=== PATIENT | female | born 1965 | race Caucasian/White ===

== ENCOUNTER → 2017-01-05 | Outpatient (REF) | payer OTHER ==
[~2017-01-05] MED LIST: ALLE12TA31 PO; COUM2.5T11 PO; GABA300C3 PO; GLUCTAB6 PO; NEXI40CA PO; OXYC-299 PO; PERC5TAB6 PO; PRIN10TA PO; TYLE325T5 PO; vicodin OR
== END ==
LOC: M LAB REF 14:57
PROVIDERS: ATTEND Nurse Practitioner Family
DX: J06.9 Acute upper respiratory infection, unspecified (principal); R50.9 Fever, unspecified

== ENCOUNTER → 2017-07-08 | Outpatient (CLI) | payer OTHER ==
[~2017-07-08] MED LIST changes: -COUM2.5T11 PO; +COUM2.5T17 PO; +GABA-282 PO; -GABA300C3 PO; +OXYC-141 PO; -OXYC-299 PO; +PERC5TAB12 PO; -PERC5TAB6 PO
--- NOTE | 2017-07-08 11:43 | REPMRS ---
Patient History The patient states she has not had a clinical breast exam in over a year. Patient is postmenopausal. Family history of colorectal cancer in sister at age 63. Digital Woman Screen Mammo: July 08, 2017 - Exam #: [id number] Bilateral CC and MLO view(s) were taken. Technologist: Noelle Acevedo, Technologist Prior study comparison: June 11, 2016, digital woman screen mammo performed at [facility]. May 23, 2015, digital woman screen mammo performed at [facility]. FINDINGS: There are scattered fibroglandular densities. There has been no change in the appearance of the mammogram from the prior studies. There is a mild amount of residual fibroglandular tissue which is fairly symmetric. There is no interval development of dominant mass, architectural distortion, or clustered microcalcification suggestive of malignancy. ASSESSMENT: BI-RADS/ACR category 1 mammogram. Negative. Recommendation Routine screening mammogram in 1 year (for women over age 40). This mammogram was interpreted with the aid of an FDA-approved computer-aided dectection system. Electronically Signed By: Josiah Malloy MD 07/08/17 2575
== END ==
LOC: M WHC 10:51
PROVIDERS: ATTEND Family Medicine
DX: Z12.31 Encounter for screening mammogram for malignant neoplasm of breast (principal); Z78.0 Asymptomatic menopausal state; Z80.0 Family history of malignant neoplasm of digestive organs

== ENCOUNTER → 2017-08-11 | Outpatient (REF) | payer OTHER | LOC: M LAB REF 14:48 | PROVIDERS: ATTEND Advanced Practice Midwife | DX: Z12.4 Encounter for screening for malignant neoplasm of cervix (principal) ==

== ENCOUNTER → 2018-02-03 | Outpatient (CLI) | payer OTHER | LOC: M RAD 14:50 | DX: N95.0 Postmenopausal bleeding (principal); N85.00 Endometrial hyperplasia, unspecified | CPT/HCPCS: 76856 ==

== ENCOUNTER → 2018-05-12 | Outpatient (CLI) | payer OTHER ==
[2018-05-12 11:38] LABS: BASO % 0.5 % (0.0-1.0); EOS # 0.1 10^3/uL (0.0-0.50); EOS % 1.6 % (0.0-3.0); HEMATOCRIT 44.8 % (36.0-47.0); HEMOGLOBIN 15.1 g/dl (12.0-15.5); IMMATURE GRANULOCYTE % 0.2 % (0-3.0); LYMPH # 2.1 10^3/uL (1.5-4.5); LYMPH % 34.6 % (24.0-44.0); MEAN CORPUSCULAR HEMOGLOBIN 30.1 pg (27.0-33.0); MEAN CORPUSCULAR HGB CONC 33.7 g/dl (32.0-36.5); MEAN CORPUSCULAR VOLUME 89.2 fl (80.0-96.0); MONO # 0.5 10^3/uL (0.0-0.8); MONO % 8.4 % (0.0-5.0); NEUTROPHILS # 3.4 10^3/uL (1.8-7.7); NEUTROPHILS % 54.7 % (36.0-66.0); PLATELET COUNT, AUTOMATED 220 10^3/uL (150-450); RED BLOOD COUNT 5.02 10^6/uL (4.00-5.40); RED CELL DISTRIBUTION WIDTH 13.3 % (11.5-14.5); WHITE BLOOD COUNT 6.2 10^3/uL (4.0-10.0)
[2018-05-12 12:05] LABS: ALBUMIN/GLOBULIN RATIO 1.21 (1.00-1.93); ALKALINE PHOSPHATASE 36 U/L (45-117); ALT/SGPT 27 U/L (12-78); ANION GAP 6 MEQ/L (8-16); AST/SGOT 17 U/L (7-37); BILIRUBIN,TOTAL 0.5 MG/DL (0.2-1.0); BLOOD UREA NITROGEN 12 MG/DL (7-18); CALCIUM LEVEL 8.8 MG/DL (8.5-10.1); CARBON DIOXIDE LEVEL 29 MEQ/L (21-32); CHLORIDE LEVEL 106 MEQ/L (98-107); CREATININE FOR GFR 0.81 MG/DL (0.55-1.30); GLOMERULAR FILTRATION RATE > 60.0 (>51); GLUCOSE, FASTING 90 MG/DL (70-100); POTASSIUM SERUM 4.5 MEQ/L (3.5-5.1); SODIUM LEVEL 141 MEQ/L (136-145); TOTAL PROTEIN 7.3 GM/DL (6.4-8.2)
== END ==
LOC: M LAB 10:40
DX: Z01.818 Encounter for other preprocedural examination (principal); N92.0 Excessive and frequent menstruation with regular cycle
CPT/HCPCS: 80053

== ENCOUNTER 2018-05-24 07:56 | Day surgery (SDC) | payer OTHER ==
[~2018-05-24 07:56] MED LIST changes: -ALLE12TA31 PO; -COUM2.5T17 PO; -GABA-282 PO; -GLUCTAB6 PO; +KETOROLAC 60 MG/2 ML VIAL (J1885) As Ordered; +LIDOCAINE 2% INJ 100 MG/5 ML SDV (FOR ANES.) As Ordered; -NEXI40CA PO; +ONDANSETRON 4MG/2ML VIAL (J2405) As Ordered; -OXYC-141 PO; -PERC5TAB12 PO; -PRIN10TA PO; +PROPOFOL 200 MG/20 ML VIAL As Ordered; +ROCURONIUM BROMIDE 50 MG/5 ML VIAL As Ordered; -TYLE325T5 PO; +dexameTHASONE 4 MG/ML 1ML VIAL (J1100) As Ordered; -vicodin OR
[2018-05-24] MEDS: LR 1,000 ML IV ×4 (08:15→23:00)
[2018-05-24] MEDS ORDERED: fentaNYL 250 MCG/5 ML INJECTION (J3010) As Ordered (09:41)
[2018-05-24] MEDS ORDERED: MIDAZOLAM INJ 2 MG/2 ML VIAL (J2250) As Ordered (09:41)
[2018-05-24] MEDS ORDERED: BUPIVACAINE HCL 0.25% 30 ML VIAL As Ordered (10:31)
[2018-05-24] MEDS ORDERED: HYDROmorphone HCL 2 MG/ML 1ML VIAL (J1170) As Ordered (11:17)
[2018-05-24] MEDS ORDERED: GLYCOPYRROLATE INJ 0.2 MG/ML 2 ML VIAL As Ordered (11:35)
[2018-05-24] MEDS ORDERED: ROCURONIUM BROMIDE 50 MG/5 ML VIAL As Ordered (11:42)
[2018-05-24] MEDS ORDERED: hydrALAZINE INJ 20 MG/ML VIAL As Ordered (12:11)
[2018-05-24] MEDS ORDERED: SUGAMMADEX SODIUM 500 MG/5 ML VIAL (BRIDION) As Ordered (13:39)
[2018-05-24] MEDS ORDERED: LABETALOL HCL 100 MG/20 ML VIAL As Ordered (14:04)
[2018-05-24] MEDS ORDERED: HYDROMORPHONE HCL 0.5 MG/ 0.5 ML SYRINGE (J1170 PER 1) As Ordered (14:41)
[2018-05-24] MEDS ORDERED: ONDANSETRON 4MG/2ML VIAL (J2405) IV (14:45)
[2018-05-24] MEDS ORDERED: fentaNYL 100 MCG/2 ML INJECTION (J3010) IV (14:45)
[2018-05-24] MEDS: HYDROMORPHONE HCL 0.5 MG/ 0.5 ML SYRINGE (J1170 PER 1) IV ×5 (14:47→15:10)
[2018-05-24] MEDS ORDERED: LABETALOL HCL 100 MG/20 ML VIAL IV (15:00)
[2018-05-24] MEDS ORDERED: PROMETHAZINE INJ 25 MG/ML VIAL (J2550) IV (15:00)
[2018-05-24] MEDS ORDERED: PERCOCET 5MG/325MG TAB PO ×2 (15:00)
[2018-05-24] MEDS ORDERED: MORPHINE 4 MG/ML 1ML VIAL/SYRINGE (J2270) IV (15:00)
[2018-05-24] MEDS ORDERED: KETOROLAC 30 MG/ML VIAL (J1885) IV (15:00)
[2018-05-24] MEDS ORDERED: zolPIDEM TARTRATE 10MG TAB PO (15:00)
[2018-05-24] MEDS: PERCOCET 5MG/325MG TAB PO (15:25)
[2018-05-24] MEDS: KETOROLAC 30 MG/ML VIAL (J1885) IV (17:56)
[2018-05-25] MEDS: KETOROLAC 30 MG/ML VIAL (J1885) IV ×2 (00:09→06:26)
[2018-05-25] MEDS: LR 1,000 ML IV (06:19)
== END 2018-05-25 10:42 | disposition home or self-care (01) ==
LOC: M SDC 07:56 → M PED 16:15
DX: N95.0 Postmenopausal bleeding (principal); N84.0 Polyp of corpus uteri; D25.1 Intramural leiomyoma of uterus; N73.6 Female pelvic peritoneal adhesions (postinfective); R10.2 Pelvic and perineal pain; I10 Essential (primary) hypertension; Z91.040 Latex allergy status; F41.9 Anxiety disorder, unspecified; F32.9 Major depressive disorder, single episode, unspecified; J45.20 Mild intermittent asthma, uncomplicated; M54.5 Low back pain; K21.9 Gastro-esophageal reflux disease without esophagitis; G47.33 Obstructive sleep apnea (adult) (pediatric); Z79.899 Other long term (current) drug therapy
CPT/HCPCS: 58571

== ENCOUNTER 2018-05-29 11:41 | Emergency (ER) | payer OTHER ==
[2018-05-29 13:42] LABS: HEMATOCRIT 46.2 % (36.0-47.0); HEMOGLOBIN 15.5 g/dl (12.0-15.5); MEAN CORPUSCULAR HEMOGLOBIN 30.3 pg (27.0-33.0); MEAN CORPUSCULAR HGB CONC 33.5 g/dl (32.0-36.5); MEAN CORPUSCULAR VOLUME 90.2 fl (80.0-96.0); PLATELET COUNT, AUTOMATED 246 10^3/uL (150-450); RED BLOOD COUNT 5.12 10^6/uL (4.00-5.40); WHITE BLOOD COUNT 8.6 10^3/uL (4.0-10.0)
[2018-05-29 14:01] LABS: ANION GAP 6 MEQ/L (8-16); BLOOD UREA NITROGEN 13 MG/DL (7-18); CALCIUM LEVEL 9.3 MG/DL (8.5-10.1); CARBON DIOXIDE LEVEL 30 MEQ/L (21-32); CHLORIDE LEVEL 105 MEQ/L (98-107); CREATININE FOR GFR 0.82 MG/DL (0.55-1.30); GLOMERULAR FILTRATION RATE > 60.0 (>51); GLUCOSE, FASTING 96 MG/DL (70-100); MAGNESIUM LEVEL 2.1 MG/DL (1.8-2.4); POTASSIUM SERUM 4.4 MEQ/L (3.5-5.1); SODIUM LEVEL 141 MEQ/L (136-145)
== END 2018-05-29 15:07 | disposition home or self-care (01) ==
LOC: M ED 11:41
DX: M79.661 Pain in right lower leg (principal); Z98.890 Other specified postprocedural states; I10 Essential (primary) hypertension; G43.909 Migraine, unspecified, not intractable, without status migrainosus; K21.9 Gastro-esophageal reflux disease without esophagitis; M54.9 Dorsalgia, unspecified; F41.9 Anxiety disorder, unspecified; F32.9 Major depressive disorder, single episode, unspecified; Z87.442 Personal history of urinary calculi; Z88.6 Allergy status to analgesic agent; Z88.8 Allergy status to other drugs, medicaments and biological substances; Z88.1 Allergy status to other antibiotic agents; Z91.040 Latex allergy status
CPT/HCPCS: 93971

== ENCOUNTER → 2018-05-31 | Outpatient (CLI) | payer OTHER | LOC: M RAD 10:56 | DX: M79.661 Pain in right lower leg (principal) | CPT/HCPCS: 93971 ==

== ENCOUNTER → 2018-06-10 | Outpatient (CLI) | payer OTHER ==
[2018-06-10 11:20] LABS: HEMATOCRIT 45.5 % (36.0-47.0); HEMOGLOBIN 15.3 g/dl (12.0-15.5); MEAN CORPUSCULAR HEMOGLOBIN 30.2 pg (27.0-33.0); MEAN CORPUSCULAR HGB CONC 33.6 g/dl (32.0-36.5); MEAN CORPUSCULAR VOLUME 89.7 fl (80.0-96.0); PLATELET COUNT, AUTOMATED 263 10^3/uL (150-450); RED BLOOD COUNT 5.07 10^6/uL (4.00-5.40); RED CELL DISTRIBUTION WIDTH 12.9 % (11.5-14.5); WHITE BLOOD COUNT 6.8 10^3/uL (4.0-10.0)
[2018-06-10 11:27] LABS: INR 1.04; PROTHROMBIN TIME 13.7 SECONDS (12.1-14.4)
[2018-06-10 11:41] LABS: ERYTHROCYTE SEDIMENTATION RATE 11 mm/hr (0-30)
[2018-06-10 11:44] LABS: ALBUMIN 3.9 GM/DL (3.2-5.2); ALBUMIN/GLOBULIN RATIO 1.03 (1.00-1.93); ALKALINE PHOSPHATASE 36 U/L (45-117); ALT/SGPT 27 U/L (12-78); ANION GAP 9 MEQ/L (8-16); AST/SGOT 12 U/L (7-37); BILIRUBIN,TOTAL 0.4 MG/DL (0.2-1.0); BLOOD UREA NITROGEN 18 MG/DL (7-18); CALCIUM LEVEL 9.2 MG/DL (8.5-10.1); CARBON DIOXIDE LEVEL 26 MEQ/L (21-32); CHLORIDE LEVEL 105 MEQ/L (98-107); CREATININE FOR GFR 0.88 MG/DL (0.55-1.30); GLOMERULAR FILTRATION RATE > 60.0 (>51); GLUCOSE, FASTING 95 MG/DL (70-100); POTASSIUM SERUM 4.4 MEQ/L (3.5-5.1); SODIUM LEVEL 140 MEQ/L (136-145); TOTAL PROTEIN 7.7 GM/DL (6.4-8.2)
== END ==
LOC: M LAB 10:42
DX: Z01.818 Encounter for other preprocedural examination (principal); I10 Essential (primary) hypertension; M17.12 Unilateral primary osteoarthritis, left knee
CPT/HCPCS: 71046

== ENCOUNTER → 2018-07-09 | Outpatient (CLI) | payer OTHER | LOC: M WHC 11:17 | DX: Z12.31 Encounter for screening mammogram for malignant neoplasm of breast (principal) | CPT/HCPCS: 77067 ==

== ENCOUNTER 2018-07-13 07:18 | Inpatient (IN) | payer OTHER ==
[2018-07-13] MEDS: LR 1,000 ML IV ×3 (08:04→16:25)
[2018-07-13] MEDS: ACETAMINOPHEN 500 MG TAB PO (08:05)
[2018-07-13] MEDS ORDERED: fentaNYL 100 MCG/2 ML INJECTION (J3010) As Ordered ×3 (08:28→10:01)
[2018-07-13] MEDS ORDERED: MIDAZOLAM INJ 2 MG/2 ML VIAL (J2250) As Ordered ×2 (08:28→09:00)
[2018-07-13] MEDS: VANCOMYCIN HCL 1,000 MG, VIAL MATE ADAPTER 1 EACH in D5W 250 ML IV ×2 (08:37→21:00)
[2018-07-13] MEDS: fentaNYL 100 MCG/2 ML INJECTION (J3010) IV ×6 (08:39→12:15)
[2018-07-13] MEDS: MIDAZOLAM INJ 2 MG/2 ML VIAL (J2250) IV ×2 (08:39→08:40)
[2018-07-13] MEDS ORDERED: dexameTHASONE 4 MG/ML 1ML VIAL (J1100) As Ordered (09:02)
[2018-07-13] MEDS ORDERED: ONDANSETRON 4MG/2ML VIAL (J2405) As Ordered ×2 (09:02→11:43)
[2018-07-13] MEDS ORDERED: LIDOCAINE 2% INJ 100 MG/5 ML SDV (FOR ANES.) As Ordered (09:02)
[2018-07-13] MEDS ORDERED: PROPOFOL 200 MG/20 ML VIAL As Ordered (09:02)
[2018-07-13] MEDS ORDERED: HYDROmorphone HCL 2 MG/ML 1ML VIAL (J1170) As Ordered (10:11)
[2018-07-13] MEDS: ceFAZolin 1GM INJ (J0690 PER 500MG) As Ordered (10:18)
[2018-07-13] MEDS ORDERED: ATROPINE SULF 0.4 MG/ML 1ML VIAL (J0461) As Ordered (10:19)
[2018-07-13] MEDS ORDERED: KETAMINE HCL 200 MG/20 ML VIAL As Ordered (10:20)
[2018-07-13] MEDS: TRANEXAMIC ACID 100 MG/ML 10ML VIAL As Ordered (10:46)
[2018-07-13] MEDS: EPINEPHrine INJ 1 MG/ML 1ML AMP As Ordered (10:46)
[2018-07-13] MEDS: BUPIVACAINE LIPOSOME/PF 1.3% 20 ML VIAL (13.3MG/ML)(EXPAREL) As Ordered (11:05)
[2018-07-13] MEDS: BUPIVACAINE HCL 0.25% 10 ML VIAL As Ordered (11:05)
[2018-07-13] MEDS ORDERED: MORPHINE 1MG/ML IN 0.9% NACL 100ML IV BAG As Ordered (11:20)
[2018-07-13] MEDS: ONDANSETRON 4MG/2ML VIAL (J2405) IV ×2 (11:55→18:05)
[2018-07-13] MEDS: PERCOCET 5MG/325MG TAB PO ×2 (11:55→12:44)
[2018-07-13] MEDS ORDERED: PERCOCET 5MG/325MG TAB As Ordered (11:57)
[2018-07-13] MEDS ORDERED: METOCLOPRAMIDE INJ 10MG/2ML VIAL (J2765) As Ordered (11:57)
[2018-07-13] MEDS ORDERED: NALBUPHINE HCL 10 MG/ML AMP (J2300) IV (12:00)
[2018-07-13] MEDS ORDERED: diphenhydrAMINE INJ 50MG/ML VIAL (J1200) IV (12:00)
[2018-07-13] MEDS ORDERED: EPIDURAL/PCA KEYS XX (12:00)
[2018-07-13] MEDS ORDERED: FLEET ENEMA PR (12:00)
[2018-07-13] MEDS ORDERED: ROPIvacaine 0.5% 30 ML INJECTION (J2795 PER 1MG) (12:00)
[2018-07-13] MEDS ORDERED: EPINEPHrine INJ 1 MG/ML 1ML AMP (12:00)
[2018-07-13] MEDS ORDERED: ACETAMINOPHEN TAB 650MG DOSE (2X325MG) PO (12:00)
[2018-07-13] MEDS ORDERED: NALOXONE INJ 0.4 MG/1 ML VIAL (J2310) IV (12:00)
[2018-07-13] MEDS: METOCLOPRAMIDE INJ 10MG/2ML VIAL (J2765) IV (12:05)
[2018-07-13] MEDS ORDERED: MEPERIDINE INJ 25 MG/ML VIAL (J2175) IV (12:15)
[2018-07-13] MEDS: MORPHINE 1MG/ML IN 0.9% NACL 100ML IV BAG IV (12:15)
[2018-07-13] MEDS ORDERED: ALBUTEROL SULFATE 2.5 MG/0.5 ML INH NEB SOLN NEB (12:45)
[2018-07-13] MEDS: MULTIVITAMINS/MINERALS THERAP 1 TAB PO (16:25)
[2018-07-13] MEDS: amLODIPine 10 MG TAB PO (16:25)
[2018-07-13] MEDS ORDERED: IPRATROPIUM 0.5MG/ALBUTEROL 2.5MG INH SOL UD 3ML (DUONEB)(J7620) NEB (18:00)
[2018-07-13] MEDS: LORATADINE 5 MG HALF-TAB PO (21:00)
[2018-07-14] MEDS: LR 1,000 ML IV (00:30)
[2018-07-14 06:12] LABS: BASO % 0.1 % (0.0-1.0); EOS % 0.1 % (0.0-3.0); HEMATOCRIT 39.8 % (36.0-47.0); HEMOGLOBIN 13.4 g/dl (12.0-15.5); IMMATURE GRANULOCYTE % 0.4 % (0-3.0); LYMPH # 1.6 10^3/uL (1.5-4.5); LYMPH % 11.9 % (24.0-44.0); MEAN CORPUSCULAR HGB CONC 33.7 g/dl (32.0-36.5); MEAN CORPUSCULAR VOLUME 89.2 fl (80.0-96.0); MONO # 1.2 10^3/uL (0.0-0.8); MONO % 9.1 % (0.0-5.0); NEUTROPHILS # 10.7 10^3/uL (1.8-7.7); NEUTROPHILS % 78.4 % (36.0-66.0); PLATELET COUNT, AUTOMATED 223 10^3/uL (150-450); RED BLOOD COUNT 4.46 10^6/uL (4.00-5.40); RED CELL DISTRIBUTION WIDTH 13.1 % (11.5-14.5); WHITE BLOOD COUNT 13.6 10^3/uL (4.0-10.0)
[2018-07-14 06:30] LABS: ANION GAP 8 MEQ/L (8-16); BLOOD UREA NITROGEN 8 MG/DL (7-18); CALCIUM LEVEL 8.8 MG/DL (8.5-10.1); CARBON DIOXIDE LEVEL 29 MEQ/L (21-32); CHLORIDE LEVEL 103 MEQ/L (98-107); CREATININE FOR GFR 0.77 MG/DL (0.55-1.30); GLOMERULAR FILTRATION RATE > 60.0 (>51); GLUCOSE, FASTING 109 MG/DL (70-100); POTASSIUM SERUM 4.4 MEQ/L (3.5-5.1); SODIUM LEVEL 140 MEQ/L (136-145)
[2018-07-14] MEDS ORDERED: ONDANSETRON 4 MG TAB (S0181) PO (06:30)
[2018-07-14] MEDS ORDERED: PERCOCET 5MG/325MG TAB PO (06:30)
[2018-07-14] MEDS: MIRALAX *UNIT DOSE* 17GM PACKET PO (09:00)
[2018-07-14] MEDS: MOM 30ML SUSPENSION UDC PO ×2 (09:00→09:10)
[2018-07-14] MEDS: SENOKOT S TAB PO ×2 (09:10→20:48)
[2018-07-14] MEDS: PERCOCET 5MG/325MG TAB PO ×3 (09:12→17:52)
[2018-07-14] MEDS: MULTIVITAMINS/MINERALS THERAP 1 TAB PO (09:12)
[2018-07-14] MEDS: amLODIPine 5 MG TAB PO ×2 (09:12→13:49)
[2018-07-14] MEDS: RIVAROXABAN 10 MG TAB (XARELTO) PO (17:12)
[2018-07-14] MEDS: LORATADINE 5 MG HALF-TAB PO (20:48)
[2018-07-14] MEDS: MORPHINE 15 MG SA TAB PO (21:45)
[2018-07-15] MEDS: PERCOCET 5MG/325MG TAB PO ×5 (01:14→21:52)
[2018-07-15 06:46] LABS: BASO # 0.1 10^3/uL (0.0-0.2); BASO % 0.4 % (0.0-1.0); EOS # 0.2 10^3/uL (0.0-0.50); EOS % 1.5 % (0.0-3.0); HEMATOCRIT 39.1 % (36.0-47.0); IMMATURE GRANULOCYTE % 0.5 % (0-3.0); LYMPH % 17.2 % (24.0-44.0); MEAN CORPUSCULAR HEMOGLOBIN 30.2 pg (27.0-33.0); MEAN CORPUSCULAR HGB CONC 33.2 g/dl (32.0-36.5); MEAN CORPUSCULAR VOLUME 90.9 fl (80.0-96.0); MONO # 1.2 10^3/uL (0.0-0.8); NEUTROPHILS # 8.2 10^3/uL (1.8-7.7); NEUTROPHILS % 70.4 % (36.0-66.0); PLATELET COUNT, AUTOMATED 185 10^3/uL (150-450); RED CELL DISTRIBUTION WIDTH 13.2 % (11.5-14.5); WHITE BLOOD COUNT 11.7 10^3/uL (4.0-10.0)
[2018-07-15 07:00] LABS: ANION GAP 8 MEQ/L (8-16); BLOOD UREA NITROGEN 10 MG/DL (7-18); CALCIUM LEVEL 8.4 MG/DL (8.5-10.1); CARBON DIOXIDE LEVEL 29 MEQ/L (21-32); CHLORIDE LEVEL 106 MEQ/L (98-107); CREATININE FOR GFR 0.66 MG/DL (0.55-1.30); GLOMERULAR FILTRATION RATE > 60.0 (>51); GLUCOSE, FASTING 102 MG/DL (70-100); POTASSIUM SERUM 3.8 MEQ/L (3.5-5.1); SODIUM LEVEL 143 MEQ/L (136-145)
[2018-07-15] MEDS: amLODIPine 10 MG TAB PO (07:52)
[2018-07-15] MEDS: MORPHINE 15 MG SA TAB PO ×2 (07:52→19:39)
[2018-07-15] MEDS: SENOKOT S TAB PO ×3 (07:52→19:40)
[2018-07-15] MEDS: MULTIVITAMINS/MINERALS THERAP 1 TAB PO (07:52)
[2018-07-15] MEDS: MIRALAX *UNIT DOSE* 17GM PACKET PO (07:53)
[2018-07-15] MEDS: MOM 30ML SUSPENSION UDC PO (07:53)
[2018-07-15] MEDS: PANTOPRAZOLE 20 MG TAB PO (13:14)
[2018-07-15] MEDS: RIVAROXABAN 10 MG TAB (XARELTO) PO (17:43)
[2018-07-15] MEDS: LORATADINE 5 MG HALF-TAB PO (19:37)
[2018-07-16] MEDS: PERCOCET 5MG/325MG TAB PO ×4 (04:13→17:44)
[2018-07-16 06:26] LABS: BASO # 0.1 10^3/uL (0.0-0.2); BASO % 0.5 % (0.0-1.0); EOS # 0.3 10^3/uL (0.0-0.50); EOS % 3.2 % (0.0-3.0); HEMATOCRIT 35.9 % (36.0-47.0); IMMATURE GRANULOCYTE % 0.3 % (0-3.0); LYMPH # 1.7 10^3/uL (1.5-4.5); LYMPH % 15.8 % (24.0-44.0); MEAN CORPUSCULAR HEMOGLOBIN 30.2 pg (27.0-33.0); MEAN CORPUSCULAR HGB CONC 33.4 g/dl (32.0-36.5); MEAN CORPUSCULAR VOLUME 90.2 fl (80.0-96.0); MONO % 9.1 % (0.0-5.0); NEUTROPHILS # 7.6 10^3/uL (1.8-7.7); NEUTROPHILS % 71.1 % (36.0-66.0); PLATELET COUNT, AUTOMATED 181 10^3/uL (150-450); RED BLOOD COUNT 3.98 10^6/uL (4.00-5.40); RED CELL DISTRIBUTION WIDTH 13.2 % (11.5-14.5); WHITE BLOOD COUNT 10.6 10^3/uL (4.0-10.0)
[2018-07-16 06:38] LABS: ANION GAP 6 MEQ/L (8-16); BLOOD UREA NITROGEN 15 MG/DL (7-18); CALCIUM LEVEL 8.2 MG/DL (8.5-10.1); CARBON DIOXIDE LEVEL 30 MEQ/L (21-32); CHLORIDE LEVEL 104 MEQ/L (98-107); GLOMERULAR FILTRATION RATE > 60.0 (>51); GLUCOSE, FASTING 110 MG/DL (70-100); POTASSIUM SERUM 3.5 MEQ/L (3.5-5.1); SODIUM LEVEL 140 MEQ/L (136-145)
[2018-07-16] MEDS: MULTIVITAMINS/MINERALS THERAP 1 TAB PO (08:19)
[2018-07-16] MEDS: amLODIPine 10 MG TAB PO (08:19)
[2018-07-16] MEDS: SENOKOT S TAB PO (08:19)
[2018-07-16] MEDS: MOM 30ML SUSPENSION UDC PO (08:19)
[2018-07-16] MEDS: MORPHINE 15 MG SA TAB PO (08:19)
[2018-07-16] MEDS: MIRALAX *UNIT DOSE* 17GM PACKET PO (08:20)
[2018-07-16] MEDS: RIVAROXABAN 10 MG TAB (XARELTO) PO (17:43)
== END 2018-07-16 18:00 | disposition home or self-care (01) | DRG 470 ==
LOC: M OR 07:18 → M MS5PR 13:10
PROC: 0SRD0J9 Replacement of Left Knee Joint with Synthetic Substitute, Cemented, Open Approach (ICD-10-PCS; principal; 2018-07-13 09:10)
DX: M17.12 Unilateral primary osteoarthritis, left knee (principal); K21.9 Gastro-esophageal reflux disease without esophagitis; J45.909 Unspecified asthma, uncomplicated; G47.33 Obstructive sleep apnea (adult) (pediatric); M54.5 Low back pain; I10 Essential (primary) hypertension; Z88.6 Allergy status to analgesic agent; Z88.1 Allergy status to other antibiotic agents; Z88.8 Allergy status to other drugs, medicaments and biological substances; Z96.651 Presence of right artificial knee joint; N94.6 Dysmenorrhea, unspecified; Z91.040 Latex allergy status

== ENCOUNTER → 2019-07-20 | Outpatient (CLI) | payer OTHER ==
[~2019-07-20] MED LIST changes: +ALLE12TA31 PO; +AMLO5TAB6 PO; +CLAR5TAB7 PO; +COUM2.5T17 PO; +GABA-843 PO; +GLUCTAB6 PO; +HYDR-3713 PO; +IBUP200C25 PO; -KETOROLAC 60 MG/2 ML VIAL (J1885) As Ordered; -LIDOCAINE 2% INJ 100 MG/5 ML SDV (FOR ANES.) As Ordered; +MULTCAP PO; +NEXI20CA PO; +NEXI40CA PO; -ONDANSETRON 4MG/2ML VIAL (J2405) As Ordered; +OXYC-141 PO; +PERC5TAB12 PO; +PRIN10TA PO; -PROPOFOL 200 MG/20 ML VIAL As Ordered; +PROT20TA11 PO; -ROCURONIUM BROMIDE 50 MG/5 ML VIAL As Ordered; +TYLE325T5 PO; +VENTAER INH; +XARE10TA PO; -dexameTHASONE 4 MG/ML 1ML VIAL (J1100) As Ordered; +vicodin OR
== END ==
LOC: M WHC 14:20
PROVIDERS: ATTEND Family Medicine
DX: Z53.9 Procedure and treatment not carried out, unspecified reason (principal); Z12.31 Encounter for screening mammogram for malignant neoplasm of breast

== ENCOUNTER → 2019-07-26 | Outpatient (CLI) | payer OTHER ==
--- NOTE | 2019-07-26 10:18 | REPMRS ---
Patient History The patient states she has not had a clinical breast exam in over a year. Patient is postmenopausal. Family history of colorectal cancer at age 63 in sister. No Hormone Replacement Therapy [facility] lifetime risk for breast cancer is 10.9%. Digital Woman Screen Mammo: July 26, 2019 - Exam #: [id number] Bilateral CC and MLO view(s) were taken. Technologist: Alejandra Styles, Technologist Prior study comparison: July 09, 2018, bilateral digital woman screen mammo performed at [facility]. July 08, 2017, digital woman screen mammo performed at [facility] [employer] [facility]. FINDINGS: There are scattered fibroglandular densities. There has been no change in the appearance of the mammogram from the prior studies. There is a mild amount of residual fibroglandular tissue which is fairly symmetric. There is no interval development of dominant mass, architectural distortion, or clustered microcalcification suggestive of malignancy. Assessment: BI-RADS/ACR category 1 mammogram. Negative Mammogram. Recommendation Routine screening mammogram in 1 year (for women over age 40). This mammogram was interpreted with the aid of an FDA-approved computer-aided dectection system. Electronically Signed By: Josiah Malloy MD 07/26/19 9814
== END ==
LOC: M WHC 06:43
PROVIDERS: ATTEND Family Medicine
DX: Z12.31 Encounter for screening mammogram for malignant neoplasm of breast (principal)

== ENCOUNTER → 2019-12-20 | Outpatient (CLI) | payer OTHER ==
[~2019-12-20] MED LIST changes: +METHACHOLINE KIT (J7674) INH ONE
--- NOTE | 2019-12-20 08:29 | PFTRPT ---
Site: [facility], [address] [place], [address] ID: [id number] Name: JULI KINNEY Visit Date: 12/20/2019 Second ID: [id number] Referring Doctor: Raquel Mosley Reviewing Doctor: Chele Christiansen MD Skein Mercerizing Machine Operator: Rhonda SANTOS RRT Age: 54 : 1965 Sex: Female Race: Height: 63.00 Inches Weight: 253.00 Lbs BSA: 2.14 Order IDs: [id number] Requested Test(s): <RESP-PFT.METH CHAL> Diagnosis: R06.02 of albuterol for postbronchodilator. Review Status: Not Reviewed Pre-Bronch Post-Bronch Pred Actual %Pred Actual %Chng SPIROMETRY FVC (L) 3.26 3.13 96 2.93 -6 FEV1 (L) 2.54 2.57 101 2.49 -2 FEV1/FVC (%) 79 82 103 85 3 FEF 25% (L/sec) 4.95 5.78 116 6.01 3 FEF 50% (L/sec) 3.72 4.36 117 4.19 -3 FEF 75% (L/sec) 1.28 0.88 68 0.70 -21 FEF 25-75% (L/sec) 2.42 2.83 117 2.48 -12 FEF Max (L/sec) 6.30 5.88 93 6.11 3 FIVC (L) 3.01 2.84 -5 FIF 50% (L/sec) 3.93 3.52 89 3.38 -4 FIF Max (L/sec) 4.07 3.48 -14 Expiratory Time (sec) 7.28 6.86 -5 Back Extrap Vol (L) 0.11 0.10 -3 Time To FEFmax (sec) 0.106 0.110 3
== END ==
LOC: M CARPUL 07:28
PROVIDERS: ATTEND Nurse Practitioner Adult Health
DX: R06.02 Shortness of breath (principal)
CPT/HCPCS: 94070; J7674

== ENCOUNTER → 2020-08-14 | Outpatient (CLI) | payer OTHER ==
[~2020-08-14] MED LIST changes: +AMLO1TAB24 PO; -AMLO5TAB6 PO; -METHACHOLINE KIT (J7674) INH ONE
--- NOTE | 2020-08-14 08:55 | REPMRS ---
Patient History The patient states she has not had a clinical breast exam in over a year. Patient is postmenopausal. Family history of colorectal cancer at age 63 in sister. No Hormone Replacement Therapy 3D TOMOSYNTHESIS WAS PERFORMED. [facility] lifetime risk for breast cancer is 10.6%. VOLPARA DENSITY A. Digital Woman Screen Mammo: August 14, 2020 - Exam #: [id number] Bilateral CC and MLO view(s) were taken. Technologist: Ladonna Castillo, Technologist Prior study comparison: July 26, 2019, bilateral digital woman screen mammo performed at [facility]. July 09, 2018, bilateral digital woman screen mammo performed at [facility]. FINDINGS: There are scattered fibroglandular densities. There has been no change in the appearance of the mammogram from the prior studies. There is a mild amount of residual fibroglandular tissue which is fairly symmetric. There is no interval development of dominant mass, architectural distortion, or clustered microcalcification suggestive of malignancy. Assessment: BI-RADS/ACR category 1 mammogram. Negative Mammogram. Recommendation Routine screening mammogram in 1 year (for women over age 40). This mammogram was interpreted with the aid of an FDA-approved computer-aided dectection system. Electronically Signed By: Josiah Malloy MD 08/14/20 0855
== END ==
LOC: M WHC 07:30
PROVIDERS: ATTEND Family Medicine
DX: Z12.31 Encounter for screening mammogram for malignant neoplasm of breast (principal); Z78.0 Asymptomatic menopausal state; Z80.0 Family history of malignant neoplasm of digestive organs

== ENCOUNTER → 2021-03-01 | Outpatient (REF) | payer OTHER ==
[~2021-03-01] MED LIST changes: +GABA-282 PO; -GABA-843 PO
[2021-03-01 18:54] LABS: C REACTIVE PROTEIN QUANTITATIV 0.41 MG/DL (0.00-0.30); RHEUMATOID FACTOR QUANT < 10.0 IU/ML (<15.0)
[2021-03-04 13:10] LABS: ANTI DOUBLE STRAND-DNA AB <1 IU/mL (0-9); ANTINUCLEAR ANTIBODIES DIRECT Positive (Negative); RNP ANTIBODIES 1.1 AI (0.0-0.9); SJOGREN'S ANTI SS-A <0.2 AI (0.0-0.9); SJOGREN'S ANTI SS-B <0.2 AI (0.0-0.9); SMITH ANTIBODIES <0.2 AI (0.0-0.9)
== END ==
LOC: M LAB REF 16:36
PROVIDERS: ATTEND Family Medicine
DX: M25.59 Pain in other specified joint (principal)

== ENCOUNTER → 2021-09-06 | Outpatient (CLI) | payer OTHER ==
--- NOTE | 2021-09-06 08:48 | REPMRS ---
Patient History The patient states she has not had a clinical breast exam in over a year. Patient is postmenopausal. Family history of colorectal cancer at age 63 in sister. Took hormonal contraceptives for 1 year. 10 lb unintentional weight gain. Patient states no breast complaints today. Patient has signed MRS History Sheet. Digital Woman Screen Mammo: September 06, 2021 - Exam #: [id number] Bilateral CC and MLO view(s) were taken. Technologist: RT Nando Prior study comparison: August 14, 2020, bilateral digital woman screen mammo performed at [facility]. July 26, 2019, bilateral digital woman screen mammo performed at [facility]. FINDINGS: There are scattered fibroglandular densities. Screening. Digital screening (2D) mammography was performed bilaterally in the CC and MLO projections. Additionally, breast tomosynthesis (3D mammography) was performed bilaterally in the CC and MLO projections. Todays exam was compared to the prior exam/exams. By history, the patient has no complaints of a palpable breast abnormality or other significant breast complaints. The breasts are unchanged in size and shape. There are no kala-soft tissue densities or spiculated masses. There is no internal architectural distortion. Once again, stable benign appearing calcifications are seen.There are no suspicious kala-calcific clusters. Skin thickening or nipple retraction is not present. IMPRESSION: BI-RADS Category 2- Benign Findings. There is no evidence of malignant alteration of the breasts. Followup examination recommended in one year. The Volpara volumetric breast density category is B, there are scattered areas of fibroglandular densities. This mammogram was read with the assistance of [facility],an FDA approved computer aided detection system for mammography. The lifetime Tyrer-Cuzick score is 10.4 % Negative x-ray reports should not delay surgical consultation if a dominant or clinically suspicious mass is present. Not all breast cancers can be identified by mammography. Therefore, we recommend that you continue to perform regular breast self-examination and physical examination and then promptly contact your physician of any concerns or changes. Adenosis and dense breasts may obscure an underlying neoplasm. Assessment: BI-RADS/ACR category 2 mammogram. Benign Findings. Recommendation Routine screening mammogram of both breasts in 1 year. Electronically Signed By: Sreekanth Graham DO 09/06/21 0848
== END ==
LOC: M WHC 07:18
PROVIDERS: ATTEND Family Medicine
DX: Z12.31 Encounter for screening mammogram for malignant neoplasm of breast (principal)

== ENCOUNTER 2021-10-12 12:33 | Inpatient (IN) | payer OTHER ==
[~2021-10-12] VITALS: Ht 157.5 cm; Wt 114.0 kg
[~2021-10-12 12:33] MED LIST changes: +dexameTHASONE 4 MG/ML 1ML VIAL (J1100 PER 1MG) IV SCH
[2021-10-12 12:51] LABS: ABG BASE EXCESS -5.2 (-2.0-2.0); ABG HCO3 19.1 MEQ/L (22.0-26.0); ABG O2 SATURATION 82.1 % (95.0-99.0); ABG PARTIAL PRESSURE CO2 33.8 mmHg (35.0-45.0); ABG STANDARD HCO3 19.9 MEQ/L (22.0-26.0); ABG TOTAL CO2 20.2 MEQ/L (22.0-29.0); ABG pH (ARTERIAL) 7.371 UNITS (7.350-7.450)
[2021-10-12 12:55] LABS: ABG PARTIAL PRESSURE O2 48.7 mmHg (75.0-100.0)
[2021-10-12] MEDS ORDERED: ACETAMINOPHEN *IV* 650 MG in IV 1 EA IV ONE (13:00)
[2021-10-12 13:03] LABS: BASO % 0.3 % (0.0-1.0); EOS % 0.1 % (0.0-3.0); HEMATOCRIT 41.8 % (36.0-47.0); HEMOGLOBIN 14.1 g/dl (12.0-15.5); LYMPH # 0.8 10^3/uL (1.5-5.0); LYMPH % 8.2 % (24.0-44.0); MEAN CORPUSCULAR HEMOGLOBIN 29.9 pg (27.0-33.0); MEAN CORPUSCULAR HGB CONC 33.7 g/dl (32.0-36.5); MEAN CORPUSCULAR VOLUME 88.6 fl (80.0-96.0); MONO # 0.3 10^3/uL (0.0-0.8); MONO % 3.1 % (2.0-8.0); NEUTROPHILS # 8.3 10^3/uL (1.5-8.5); NEUTROPHILS % 86.6 % (36.0-66.0); PLATELET COUNT, AUTOMATED 148 10^3/uL (150-450); RED BLOOD COUNT 4.72 10^6/uL (4.00-5.40); WHITE BLOOD COUNT 9.6 10^3/uL (4.0-10.0)
[2021-10-12 13:11] LABS: INR 1.25; PROTHROMBIN TIME 16.2 SECONDS (12.7-14.5)
--- NOTE | 2021-10-12 13:11 | REP ---
INDICATION: resp distress COMPARISON: 06/10/2018 TECHNIQUE: Portable AP view of the chest FINDINGS: Diffuse bilateral opacities suggest multifocal pneumonia versus COVID-19 pulmonary disease. No effusion. No pneumothorax. Cardiac silhouette is normal. Skeletal structures intact. IMPRESSION: Bilateral opacities suggest multifocal pneumonia versus COVID-19 pulmonary disease. <Electronically signed by Maycol Massey > 10/12/21 7110
[2021-10-12 13:12] LABS: PARTIAL THROMBOPLASTIN TIME 31.7 SECONDS (25.9-37.0)
--- OUTSIDE RECORDS SUMMARY | 2021-10-12 13:29 | CCD | Continuity of Care Document ---
Author Author Lynnette CLINTON.NLandonPLandon Organization Unknown Address [address] [place] [address] Phone [phone] Care Team Providers Care Planograph Operator Name Role Phone Cisco Florence M.D. AUTM [phone] Problems Active Problems Provider Date Essential hypertension Raquel Clinton A.NCarmen Onset: 05/01/2011 Body mass index 40+ - severely obese Raquel Clinton A.N.P. Ons et: 05/01/2011 Morbid obesity Raquel Clinton A.NCarmen Onset: 05/01/2011 Obstructive sleep apnea syndrome Raquel Clinton A.NCarmen Onset: 05/01/2011 Uncomplicated moderate persistent asthma Nikki Jacobsen Onset: 03/22/2020 Social History Type Date Description Comments Sex Unknown Cigarette Use Pack Years - 18 ETOH Use Denies alcohol use Recreational Drug Use Denies Drug Use Tobacco Use Start: 11/16/78 End: 11/16/96 Patient is a forme r smoker Smoking Status Reviewed: 10/01/21 Patient is a former smoker Exercise Type/Frequency Exercises sporadically Allergies and adverse reactions Active Allergies Criticality Reaction | Severity Comments Date Erythromycin Unable to assess criticality 04/08/2012 Latex Unable to assess criticality 04/08/2012 Aspirin Unable to assess criticality 04/08/2012 Flonase Unable to assess criticality 04/08/2012 Paxil Unable to assess criticality 04/08/2012 Effexor Unable to assess criticality 04/08/2012 Seasonal Unable to assess criticality 04/05/2013 Aspirin Unable to assess criticality 03/07/2008 Medications Active Medications SIG Qnty Indications Ordering Provide r Date Nebulizer Kit/Tubing/Mouthpiece K it use with nebulizer as directed 2units J45.40 Amarilys Jacobsen.N.P. Qvar Redihaler 80mcg/Act Aerosol inhale one puff by mouth twice a day 31.8gm J45.40 Scott JacobsenN.P. 03/22/2020 Zyrtec-D Allergy & Congestion 5-120mg Tablets ER 12HR 1 by mouth every day as needed Unknown Ventolin HFA 108(90Base) mcg/Act A erosol 2 puffs four times a day as needed Unknown CPAP Device 13cm marras Unknown Cyclobenzaprine HCL 10mg Tablets 1 tab by mouth every day as needed Unknown Protonix 40mg Tablets DR 1 tab by mouth every day 180tabs Unknown Losartan Potassium/Hydrochlorothiazide 100-12.5mg Tablets Cisco Florence M.D. 000 Albuterol Sulfate (2 .5mg/3ML) 0.083% Nebulizer 1 vial four times a day as needed Unknown Immunizations CPT Code Status Date Vaccine Lot # 37255 Given Unknown Pneumococcal PPSV23 61884 Given Unknown Influenza Virus Split 3 Yrs And Above For Intramuscular Use 00715 Refused 10/01/2020 Flublock, Quadrivalent Vital Signs Date Vital Result Comment 10/01/2021 3:34pm BP Systolic 142 mmHg BP Diastolic 84 mmHg Heart Rate 102 /min O2 % BldC Oximetry 97 % Respiratory Rate 20 /min Height 63 inches 5'3" Weight 265.00 lb BMI (Body Mass Index) 46.9 kg/m2 Barnum Body Weight 115 lb Weight 120.204 kg BSA (Body Surface Area) 2.18 m2 10/01/2020 3:19pm BP Systolic 124 mmHg BP Diastolic 82 mmHg Heart Rate 77 /min O2 % BldC Oximetry 98 % Height 63 inches 5'3" Weight 270.00 lb BMI (Body Mass Index) 47.8 kg/m2 Barnum Body Weight 115 lb Weight 122.472 kg BSA (Body Surface Area) 2.20 m2 Results Test Acquired Date Facility Test Result H/L Range Note FVL/Lutts 10/01/2021 [facility] SEE IMAGE FVC-Pred 3.24 L FVC-Pre 3.32 L FVC-%Pred-Pre 102 L FVC-LLN 2.56 L Fev1-Pred 2.52 L Fev1-Pre 2.90 L Fev1-%Pred-Pre 115 L Fev1-LLN 1.95 L Fev6-Pred 3.13 L Fev6-Pre 3.32 L Fev6-%Pred-Pre 105 L Fev6-LLN 2.47 L Xif1mfx-Olrs 78 % Cpy1nbe-Qos 88 % Sdc2uic-%Pred-Pre 111 % Vxf0vdk-UMB 69 % Ipq8rsu-Cgoz 97 % Fjp6ysu-Clo 100 % Gqy4sir-%Pred-Pre 103 % FEFMax-Pred 6.25 L/E/sec FEFMax-Pre 4.99 L/E/sec FEFMax-%Pred-Pre 79 L/E/sec FEFMax-LLN 4.58 L/E/sec Jpq6862-Qzct 2.38 L/E/sec Sjt6569-Xle 3.96 L/E/sec Yjx2329-%Pred-Pre 166 L/E/sec Dpj8037-MWV 1.18 L/E/sec ExpTime-Pre 6.25 sec Gil4rpf1-Mmro 81 % Ivi8rpj3-Zvo 88 % Zid0vpg0-%Pred-Pre 108 % Avz0ffd5-NKD 72 % Procedures Date Code Description Status 07/09/2018 [id number] Mammogram Completed Medical Devices Description No Information Available Encounters Description No Information Available Assessments Date Code Description Provider 10/01/2021 G47.33 Obstructive sleep apnea (adult) (pediatric) Amarilys Jacobsen.N.P. 10/01/2021 J45.40 Moderate persistent asthma, unco mplicated Amarilys Jacobsen.N.P. Plan of Treatment Future Appointment(s):* 10/02/2022 9:00 am - Amarilys Jacobsen.N.P. at [facility] 10/01/2021 - Raquel Clinton A.N.P.* G47.33 Obstructive sleep apnea (adult) (pediatric) * J45.40 Moderate persistent asthma, uncomplicated * * Follow up:* Follow up in 12 months with FVL and compliance report Functional Status Description No Information Available Mental Status Description No Information Available Referrals Description No Information Available
--- OUTSIDE RECORDS SUMMARY | 2021-10-12 13:29 | CCD | Continuity of Care Document ---
Author Author Lynnette JEFFERY PECAN CLEANER Organization Unknown Address [address] [place] [address] [place] [address] Phone [phone] Care Team Providers Care Technology Applications Teacher Name Role Phone Cisco Florence MD [facility] [phone] Problems Description No Information Available Social History Type Date Description Comments Sex Unknown ETOH Use Denies alcohol use Tobacco Use Start: Unknown End: Unknown Patient is a former smoker Smoking Status Reviewed: 10/04/21 Patient is a former smoker Allergies and adverse reactions Active Allergies Criticality Reaction | Severity Comments Date Aspirin Unable to assess criticality 09/26/2019 Erythromycin Unable to assess criticality 09/26/2019 Mucinex Nasal [place] Unable to assess criticality 09/26/2019 Flonase Unable to assess criticality 09/26/2019 Medications Active Medications SIG Qnty Indications Ordering Provide r Date Vitamin C 500mg Capsules qd Unknown Qvar 40mcg/Act Aerosol Unknown Omeprazole 10mg Capsules DR Unknown Vitamin D3 Unknown Zyrtec Allergy Unknown Zinc Unknown Albuterol prn Unknown Losartan Potassium 100mg Tablets Unknown Afrin Nasal [place] 0.05% Solution 2 sprays to affected nostril a first onset of nosebleed; do not use more than 2 times a day Unknown Hydrocodone Bitartrate/Acetaminophen 5-325mg Tablets prn Unknown Curamin Extra Strength Unknown Magnesium 300mg Capsules Unknown History Medications Amoxicillin/Clavulanate Potassium 875-125mg Tablets 1 tab by mouth twice a day for 10 days 20tabs J01.90 Wendie Vasquez JR.D. 07/14/2021 - 07/24/2021 Immunizations Description No Information Available Vital Signs Date Vital Result Comment 10/04/2021 6:03pm BP Systolic 125 mmHg BP Diastolic 83 mmHg Heart Rate 83 /min Respiratory Rate 18 /min O2 % BldC Oximetry 98 % Body Temperature 101.9 F Weight 262.00 lb Height 62 inches 5'2" BMI (Body Mass Index) 47.9 kg/m2 Pain Level 5 07/14/2021 12:14pm BP Systolic 159 mmHg BP Diastolic 95 mmHg Heart Rate 89 /min Respiratory Rate 20 /min O2 % BldC Oximetry 98 % Body Temperature 97.1 F Weight 267.00 lb Height 62 inches 5'2" BMI (Body Mass Index) 48.8 kg/m2 Pain Level 4 Results Description No Information Available Procedures Date Code Description Status 07/14/2021 80319 Office/Outpatient Established Mo d MDM 30-39 Min Completed Medical Devices Description No Information Available Encounters Type Date Location Provider Dx Diagnosis Office Visit 07/14/2021 11:15a Main Office Francisco Parr, P.A. J0 6.9 Acute upper respiratory infection, unspecified J01.90 Acute sinusitis, unspecified I10 Essential (primary) hyperten cipriano Z20.828 Contact w and exposure to ot h viral communicable diseases Assessments Date Code Description Provider 07/14/2021 J06.9 Acute upper respiratory infectio n, unspecified Francisco Parr, P.A. 07/14/2021 J01.90 Acute sinusitis, unspecified Kosta Parr, P.A. 07/14/2021 I10 Essential (primary) hypertension Francisco Parr, P.A. 07/14/2021 Z20.828 Contact with and (lance spected) exposure to other viral communicable diseases Taty Renee Plan of Treatment No Information Available Functional Status Description No Information Available Mental Status Description No Information Available Referrals Description No Information Available
--- OUTSIDE RECORDS SUMMARY | 2021-10-12 13:29 | CCD | Continuity of Care Document ---
Author Author Lynnette CLINTON.NLandonPLandon Organization Unknown Address [address] [place] [address] Phone [phone] Care Team Providers Care Tour Narrator Name Role Phone Cisco Florence M.D. AUTM [phone] Problems Active Problems Provider Date Essential hypertension [...] CPT Code Status Date Vaccine Lot # 77748 Given Unknown Pneumococcal PPSV23 02213 Given Unknown Influenza Virus Split 3 Yrs And Above For Intramuscular Use 40920 Refused 10/01/2020 Flublock, Quadrivalent Vital Signs Date Vital Result Comment 10/01/2021 3:34pm BP Systolic 142 mmHg BP Diastolic 84 mmHg Heart Rate 102 /min O2 % BldC Oximetry 97 % Respiratory Rate 20 /min Height 63 inches 5'3" Weight 265.00 lb BMI (Body Mass Index) 46.9 kg/m2 Helen Body Weight 115 lb Weight 120.204 kg BSA (Body Surface Area) 2.18 m2 10/01/2020 3:19pm BP Systolic 124 mmHg BP Diastolic 82 mmHg Heart Rate 77 /min O2 % BldC Oximetry 98 % Height 63 inches 5'3" Weight 270.00 lb BMI (Body Mass Index) 47.8 kg/m2 Helen Body Weight 115 lb Weight 122.472 kg BSA (Body Surface Area) 2.20 m2 Results Test Acquired Date Facility Test Result H/L Range Note FVL/[place] 10/01/2021 [facility] SEE IMAGE FVC-Pred 3.24 L FVC-Pre 3.32 L FVC-%Pred-Pre 102 L FVC-LLN 2.56 L Fev1-Pred 2.52 L Fev1-Pre 2.90 L Fev1-%Pred-Pre 115 L Fev1-LLN 1.95 L Fev6-Pred 3.13 L Fev6-Pre 3.32 L Fev6-%Pred-Pre 105 L Fev6-LLN 2.47 L Geq5qsu-Zioo 78 % Lwj5czb-Pyz 88 % Tgo2wep-%Pred-Pre 111 % Zbn0bkw-LOT 69 % Aas4hyd-Bfkv 97 % Juw6fog-Hvd 100 % Fym9dml-%Pred-Pre 103 % FEFMax-Pred 6.25 L/E/sec FEFMax-Pre 4.99 L/E/sec FEFMax-%Pred-Pre 79 L/E/sec FEFMax-LLN 4.58 L/E/sec Acb5982-Ipsn 2.38 L/E/sec Upf3953-Gjw 3.96 L/E/sec Sjp8973-%Pred-Pre 166 L/E/sec Pax8290-CCO 1.18 L/E/sec ExpTime-Pre 6.25 sec Jrp9oov9-Xegr 81 % Mtn7eug9-Wup 88 % Cie6xqi8-%Pred-Pre 108 % Kqr8xkn7-JQM 72 % Procedures Date Code Description Status 10/01/2021 59172 Office/Outpatient Established Mo d MDM 30-39 Min Completed 10/01/2021 58062 Spirometry Completed 07/09/2018 [id number] Mammogram Completed Medical Devices Description No Information Available Encounters Type Date Location Provider Dx Diagnosis Office Visit 10/01/2021 3:30p [facility] Raquel myrick A.N.PLandon G47.33 Obstructive sleep apnea (adult) (pediatr ic) J45.40 Moderate persistent asthma, uncomplicated Assessments Date Code Description Provider 10/01/2021 G47.33 Obstructive sleep apnea (adult) (pediatric) Amarilys Jacobsen.N.PLandon 10/01/2021 J45.40 Moderate persistent asthma, unco mplicated Amarilys Jacobsen.N.PLandon Plan of Treatment Future Appointment(s):* 10/02/2022 9:00 am - Nikki Jacobsen at [facility] 10/01/2021 - Nikki Jacobsen* G47.33 Obstructive sleep apnea (adult) (pediatric) * J45.40 Moderate persistent asthma, uncomplicated * * Follow up:* Follow up in 12 months with FVL and compliance report Functional Status Description No Information Available Mental Status Description No Information Available Referrals Description No Information Available
--- OUTSIDE RECORDS SUMMARY | 2021-10-12 13:29 | CCD | Continuity of Care Document ---
Author Author Lynnette FLORENCE M.D. Organization Unknown Address [address] [facility] [address] [place] [address] Phone [phone] Care Team Providers Care Conveyor Operator Name Role Phone Cisco Florence MD [facility] [phone] Problems Active Problems Provider Date Hypertensive disorder Onset: Asthma without status asthmaticus Onset: Sleep apnea Onset: Gastroesophageal reflux disease Cisco Florence M.D. Onset: 12/15/2017 Low back pain Cisco Florence M.D. Onset: 12/15/2017 Osteoarthritis Cisco Florence M.D. Onset: 12/15/2017 Social History Type Date Description Comments Sex Unknown ETOH Use Has consumed alcohol in the past Tobacco Use Start: Unknown End: Unknown Patient is a former smoker smoking at age 13 until 30 on and off during those years,1 ppd - 1995. Allergies and adverse reactions Active Allergies Criticality Reaction | Severity Comments Date Effexor Unable to assess criticality Mild 10/20/2011 Latex Unable to assess criticality rash aorund nails when she wore gloves 04/10/2015 Paxil Unable to assess criticality Mild bad dreams 10/20/2011 Flonase Unable to assess criticality nose bleeds 04/10/2015 Erythromycin Base Unable to assess criticality Mild 10/20/2011 Erythromycin Unable to assess criticality nausea and v omiting 04/10/2015 Aspirin Unable to assess criticality rash 04/10/2015 Naproxen Unable to assess criticality nausea/vomiting 05/10/2018 Medications Active Medications SIG Qnty Indications Ordering Provide r Date Losartan Potassium/Hydrochlorothiazide 100-12.5mg Tablets 1 by mouth every day 90tabs Wendie Jewell 07/26/2021 Hydrocodone Bitartrate/Acetaminophen 5-325mg Tablets 1 every 8 hours as needed M54.5 Not A Chronic Med 21tamike Florence M.D. 07/26/2021 Zyrtec Allergy 10mg Tablets 1 by mouth every day 90tamike Florence M.D. 03/01/2021 Nebulizer Kit/Tubing/Mouthpiece K it use four times a day dx j45.901 1units J45.901 SARITHA Raza Albuterol Sulfate (2 .5mg/3ML) 0.083% Nebulizer use via aerosol neb four times a day x one week then as needed DX J45.901 150ml J45.901 Cisco Florence M.D. 11/02/2019 Hydrocodone-Acetaminophen 5-325mg Tablets 1 every 8 hours as needed pain m54.5 (not a chronic med) 21tamike Florence M.D. 05/24/2019 Ventolin HFA 108(90Base) mcg/Act A erosol 2 puffs four times a day as needed-dispense brand name, medically necessary 1undaisy Florence M.D. 03/09/[address] 1 by mouth twice a day as needed 180tabs K83.1 Cisco Florence M.D. 02/22/2016 Qvar Redihaler 40mcg/Act Aerosol 1 puff twice a day Unknown Immunizations CPT Code Status Date Vaccine Lot # [id number] Given 09/16/2010 Influenza Virus Vaccine 51555 Given 09/16/2010 Influenza Virus Vaccine 59789 Given 05/16/2010 Adacel- Tetanus Diphtheria P ertussis 07549 Refused 08/24/2020 Influenza Vaccin e Quadrivalent Preser/Antibiotic Free [place] Use 26652 Refused 08/07/2014 Influenza Virus Vaccine 39016 Refused 02/01/2014 Zoster Vaccine 50825 Refused 07/28/2013 Influenza Virus Vaccine 30924 Refused 08/18/2012 Influenza Virus Vaccine Vital Signs Date Vital Result Comment 09/12/2021 8:03am BP Systolic 122 mmHg BP Diastolic 70 mmHg Heart Rate 68 /min Weight 262.00 lb 03/15/2021 8:03am BP Systolic 142 mmHg BP Diastolic 86 mmHg BP Systolic Recheck 136 mmHg jw BP Diastolic Recheck 80 mmHg jw Results Test Acquired Date Facility Test Result H/L Range Note Comprehensive Chem Profile 09/10/2021 [facility] villagomez Body Former: Dr Migue Ramires [place], [place] [id number] [phone] Glucose 100 mg/dL High 74 - 99 1 BUN 20 mg/dL High 7 - 18 Creatinine 0.8 mg/dL 0.6 - 1.3 Sodium 138 mEq/L 136 - 145 Potassium 4.0 mEq/L 3.5 - 5.1 Chloride 100 mEq/L 98 - 107 Carbon Dioxide 31 mEq/L 21 - 32 Calcium 9.6 mg/dL 8.5 - 10.1 Alk. Phosphatase 37 mg/dL Low 46 - 116 Total Bilirubin 0.5 mg/dL 0.2 - 1.0 Ast (Sgot) 16 U/L 15 - 37 Alt (SGPT) 29 U/L 12 - 78 Albumin 3.8 g/dL 3.4 - 5.0 Total Protein 7.3 g/dL 6.4 - 8.2 A/G Ratio 1.09 CALC 1.00 - 1.90 GFR >= 60 mL/min >60 GFR >= 60 mL/min >60 2 Lipid Profile 09/10/2021 [facility] Body Former: Dr Migue Ramires [place], [place] [id number] [phone] Cholesterol 185 mg/dL 131 - 200 Triglycerides 231 mg/dL High 30 - 150 HDL Cholesterol 39 mg/dL 35 - 60 LDL (Calculated) 100 CALC 50 - 159 1 100-125 mg/dL PRE-DIABET ES/FASTING >126 mg/dL DIABETES/FASTING 2 CHRONIC KIDNEY DISEASE STAGI NG PER NKF STAGE I & II GFR >= 60 NORMAL TO MILDLY DECREASED STAGE III GFR 30-59 MODERATELY DECREASED STAGE IV GFR 15-29 SEVERELY DECREASED STAGE V GFR <15 VERY LITTLE GFR LEFT ESRD GFR <15 ON LIFE COACH Procedures Date Code Description Status 09/06/2021 [id number] Mammogram Completed 03/15/2021 31050 Office/Outpatient Established SF MDM 10-19 Min Completed 08/14/2020 [id number] Mammogram Completed 07/26/2019 [id number] Mammogram Completed 07/08/2017 [id number] Mammogram Completed 06/11/2016 [id number] Mammogram Completed 05/23/2015 [id number] Mammogram Completed 03/24/2013 [id number] Colonoscopy Completed 03/24/2012 [id number] Diabetic Retinal Eye Exam Comple [employer] Devices Description No Information Available Encounters Type Date Location Provider Dx Diagnosis Office Visit 03/15/2021 7:45a [facility] Nurse Je canas M54.5 Low back pain I10 Essential (primary) hyperten cipriano R76.0 Raised antibody titer Assessments Date Code Description Provider 03/15/2021 M54.5 Low back pain Cisco Florence M.D. 03/15/2021 M54.5 Low back pain Nurse Schedule 03/15/2021 I10 Essential (primary) hypertension Cisco Florence M.D. 03/15/2021 I10 Essential (primary) hypertension Nurse Schedule 03/15/2021 R76.0 Raised antibody titer Cisco smith M.D. 03/15/2021 R76.0 Raised antibody titer Nurse Jorge Luis golden Plan of Treatment 03/01/2021 - Cisco Florence M.D.* Z00.00 Encntr for general adult medical exam w/o abnormal findings * I10 Essential (primary) hypertension * E78.1 Pure hyperglyceridemia * K21.9 Gastro-esophageal reflux disease without esophagitis * F41.9 Anxiety disorder, unspecified * J45.40 Moderate persistent asthma, uncomplicated * G47.33 Obstructive sleep apnea (adult) (pediatric) * R07.89 Other chest pain * G62.9 Polyneuropathy, unspecified * M25.59 Pain in other specified joint * * Comments:* 1. Annual well visit: Well education was done today. We discussed the importance of following up with Solidworks Designer in detail. Her last mammogram was done in July 2020 was normal. Patient has declined colonoscopy, although has significant risk due to family history of colon cancer in her sister. Patient is encouraged to follow positive lifestyle changes.2. Hypertension: Has been suboptimal controlled, will increase losartan to 50 mg - patient has been hesitant to take medication but willing to increase to 50 mg and blood pressure check in 2 weeks.3. Hyperglyceridemia: Increased TGs, this is likely due to her sugar and carbs intake. We discussed about this and she will avoid breads.4. GERD: Requires PPI daily for suppression of her symptoms, will continue and monitor.5. Anxiety disorder: Stable but has limited her care with avoidance of medication and excessive worry. Seems to be doing much better and is in counseling with her new environmental safety specialist's .6. Moderate persistent asthma: Stable on current regimen. Raquel Blackman manages this when she follows up with her. 7. DORINDA: She has been doing well on CPAP and will continue. She follows up with Pulmonary and will continue appropriate follow up.8. Chest pain: Intermittent symptoms. Unclear etiology. I have re-referred her to Dr. Pemberton / Dr. Colon for full evaluation. We will monitor.9. Polyneuropathy: Stable. Doing well with her back. We will monitor.10. Pain in other specified joint: Multiple joints, top of feet, hand joints (especially thumbs), check labs. She is going to see Dr Patrick on her own for evaluation as well.Ongoing cares: We discussed the importance of colonoscopy due to her family history of colon cancer in her sister, which she declined, although will address this issue if she has any symptoms. She will follow up with her Solidworks Designer specialist appropriately. I am going to see her again in 6 months with CMP and lipids. If she has new problems or issues sooner she will let us know. Functional Status Description No Information Available Mental Status Description No Information Available Referrals Description No Information Available"
--- OUTSIDE RECORDS SUMMARY | 2021-10-12 13:29 | CCD | Continuity of Care Document ---
Author Author Lynnette JEFFERY MARGARINE MAKER Organization Unknown Address [address] [place] [address] [place] [address] Phone [phone] Care Team Providers Care Manager Style Name Role Phone Cisco Florence MD [facility] [phone] Problems Description No Information Available Social History [...] Unable to assess criticality 09/26/2019 Mucinex Nasal [place] Unable to assess criticality 09/26/2019 Flonase Unable to assess criticality 09/26/2019 Medications Active Medications SIG Qnty Indications Ordering Provide r Date Vitamin C 500mg Capsules qd Unknown Qvar 40mcg/Act Aerosol Unknown Omeprazole 10mg Capsules DR Unknown Vitamin D3 Unknown Zyrtec Allergy Unknown Zinc Unknown Albuterol prn Unknown Losartan Potassium 100mg Tablets Unknown Afrin Nasal [place] 0.05% Solution 2 sprays to affected nostril [...] Information Available Procedures Date Code Description Status 10/04/2021 67000 Office/Outpatient Established Mo d MDM 30-39 Min Completed 07/14/2021 38470 Office/Outpatient Established Mo d MDM 30-39 Min Completed Medical Devices Description No Information Available Encounters Type Date Location Provider Dx Diagnosis Office Visit 10/04/2021 2:50p Main Office Jolene Jeffery NP J06. 9 Acute upper respiratory infection, unspecified Office Visit 07/14/2021 11:15a Main Office Taty Renee J0 6.9 Acute upper respiratory infection, unspecified J01.90 Acute sinusitis, unspecified I10 Essential (primary) hyperten cipriano Z20.828 Contact w and exposure to ot h viral communicable diseases Assessments Date Code Description Provider 10/04/2021 J06.9 Acute upper respiratory infectio n, unspecified Jolene Jeffery NP 07/14/2021 J06.9 Acute upper respiratory infectio n, unspecified Francisco Parr, P.A. 07/14/2021 J01.90 Acute sinusitis, unspecified Kosta Parr, P.A. 07/14/2021 I10 Essential (primary) hypertension Francisco Parr P.A. 07/14/2021 Z20.828 Contact with and (lance spected) exposure to other viral communicable diseases Francisco Parr, P.Scott Plan of Treatment No Information Available Functional Status Description No Information Available Mental Status Description No Information Available Referrals Description No Information Available
--- OUTSIDE RECORDS SUMMARY | 2021-10-12 13:29 | CCD | Continuity of Care Document ---
Author Author Lynnette CLINTON.NLandonPLandon Organization Unknown Address [address] [place] [address] Phone [phone] Care Team Providers Care Electronic Equipment Set Up Operator Name Role Phone Cisco Florence M.D. AUT[facility] [phone] Problems Active Problems Provider Date Essential hypertension [...] CPT Code Status Date Vaccine Lot # [id number] Given Unknown Pneumococcal PPSV23 23269 Given Unknown Influenza Virus Split 3 Yrs And Above For Intramuscular Use 62152 Refused 10/01/2020 [place], Quadrivalent Vital Signs Date Vital Result Comment 10/01/2021 3:34pm BP Systolic 142 mmHg BP Diastolic 84 mmHg Heart Rate 102 /min O2 % BldC Oximetry 97 % Respiratory Rate 20 /min Height 63 inches 5'3" Weight 265.00 lb BMI (Body Mass Index) 46.9 kg/m2 [place] Body Weight 115 lb Weight 120.204 kg BSA (Body Surface Area) 2.18 m2 10/01/2020 3:19pm BP Systolic 124 mmHg BP Diastolic 82 mmHg Heart Rate 77 /min O2 % BldC Oximetry 98 % Height 63 inches 5'3" Weight 270.00 lb BMI (Body Mass Index) 47.8 kg/m2 [place] Body Weight 115 lb Weight 122.472 kg BSA (Body Surface Area) 2.20 m2 Results Test Acquired Date Facility Test Result H/L Range Note FVL/Pierce 10/01/2021 [facility] SEE IMAGE FVC-Pred 3.24 L FVC-Pre 3.32 L FVC-%Pred-Pre 102 L FVC-LLN 2.56 L Fev1-Pred 2.52 L Fev1-Pre 2.90 L Fev1-%Pred-Pre 115 L Fev1-LLN 1.95 L Fev6-Pred 3.13 L Fev6-Pre 3.32 L Fev6-%Pred-Pre 105 L Fev6-LLN 2.47 L Cfo6ati-Imrd 78 % Mkb8rcf-Jxq 88 % Mwr3ntw-%Pred-Pre 111 % Bim1mes-LPV 69 % Loj8zhq-Uckh 97 % Yjt8idm-Kfo 100 % Ngc0qss-%Pred-Pre 103 % FEFMax-Pred 6.25 L/E/sec FEFMax-Pre 4.99 L/E/sec FEFMax-%Pred-Pre 79 L/E/sec FEFMax-LLN 4.58 L/E/sec Bes5741-Vije 2.38 L/E/sec Fwi7181-Zfv 3.96 L/E/sec Cld6933-%Pred-Pre 166 L/E/sec Cyt9214-FIS 1.18 L/E/sec ExpTime-Pre 6.25 sec Ong1dio2-Zziv 81 % Vxu5foa5-Itr 88 % Ove2hrl1-%Pred-Pre 108 % Aaj2hwq0-QKD 72 % Procedures Date Code Description Status 07/09/2018 [id number] Mammogram Completed Medical Devices Description No Information Available Encounters Description No Information Available Assessments Date Code Description Provider 10/01/2021 G47.33 Obstructive sleep apnea (adult) (pediatric) Amarilys Jacobsen.N.P. 10/01/2021 J45.40 Moderate persistent asthma, unco mplicated Amarilys Jacobsen.N.P. Plan of Treatment Future Appointment(s):* 10/02/2022 9:00 am - Amarilys [facility]sen.N.P. at [facility] Pulmonary/Thoracic 10/01/2021 - Raquel Clinton A.N.P.* G47.33 Obstructive sleep apnea (adult) (pediatric) * J45.40 Moderate persistent asthma, uncomplicated * * Follow up:* Follow up in 12 months with FVL and compliance report Functional Status Description No Information Available Mental Status Description No Information Available Referrals Description No Information Available
--- OUTSIDE RECORDS SUMMARY | 2021-10-12 13:29 | CCD | Continuity of Care Document ---
Author Author Lab Schedule, Lynnette Organization Unknown Address [address] [address] Phone Unavailable Care Team Providers Care Children Counselor Name Role Phone Cisco Florence MD [facility] [phone] Problems Active Problems Provider Date Hypertensive disorder [...] day as needed-dispense brand name, medically necessary 1units Cisco Florence M.D. 03/09/[address] 1 by mouth twice a day as needed 180tabs K83.1 iCsco Florence M.D. 02/22/2016 Qvar Redihaler 40mcg/Act Aerosol 1 puff twice a day Unknown Immunizations CPT Code Status Date Vaccine Lot # 12375 Given 09/16/2010 Influenza Virus Vaccine 75518 Given 09/16/2010 Influenza Virus Vaccine 60940 Given 05/16/2010 Adacel- Tetanus Diphtheria P ertussis 97414 Refused 08/24/2020 Influenza Vaccin e Quadrivalent Preser/Antibiotic Free Im Use 31932 Refused 08/07/2014 Influenza Virus Vaccine 29082 Refused 02/01/2014 Zoster Vaccine 07098 Refused 07/28/2013 Influenza Virus Vaccine 03707 Refused 08/18/2012 Influenza Virus Vaccine Vital Signs [...] H/L Range Note Comprehensive Chem Profile 09/10/2021 [facility] Warrant Clerk: [place] [address] [phone] Glucose 100 mg/dL High 74 - 99 [...] 60 mL/min >60 2 Lipid Profile 09/10/2021 [facility] Warrant Clerk: [place] [address] [phone] Cholesterol 185 mg/dL 131 - 200 Triglycerides [...] LITTLE GFR LEFT ESRD GFR <15 ON BOBJ DEVELOPER Procedures Date Code Description Status 09/06/2021 [id number] Mammogram Completed 03/15/2021 11690 Office/Outpatient Established SF MDM 10-19 Min Completed 08/14/2020 [id number] Mammogram Completed 07/26/2019 [id number] Mammogram Completed 07/08/2017 [id number] Mammogram Completed 06/11/2016 [id number] Mammogram Completed 05/23/2015 [id number] Mammogram Completed 03/24/2013 [id number] Colonoscopy Completed 03/24/2012 [id number] Diabetic Retinal Eye Exam Comple [employer] Devices Description No Information Available Encounters Type Date Location Provider Dx Diagnosis Office Visit 03/15/2021 7:45a [facility] Nurse Je canas M54.5 Low [...] Nurse Jorge Luis golden Plan of Treatment No Information Available Functional Status Description No Information Available Mental Status Description No Information Available Referrals Description No Information Available"
--- OUTSIDE RECORDS SUMMARY | 2021-10-12 13:29 | CCD | Continuity of Care Document ---
Author Author Lab Schedule, Lynnette Organization Unknown Address [address] [address] Phone Unavailable Care Team Providers Care Dba Name Role Phone Cisco Florence MD [facility] [phone] Problems Active Problems Provider Date Hypertensive disorder [...] pain m54.5 (not a chronic med) 21tamike Florenec M.D. 05/24/2019 Ventolin HFA 108(90Base) mcg/Act A erosol 2 puffs four times a day as needed-dispense brand name, medically necessary 1units Cisco Florence M.D. 03/09/[address] 1 by mouth twice a day as needed 180tabs K83.1 Cisco Florence M.D. 02/22/2016 Qvar Redihaler 40mcg/Act Aerosol 1 puff twice a day Unknown Immunizations CPT Code Status Date Vaccine Lot # 46662 Given 09/16/2010 Influenza Virus Vaccine 85734 Given 09/16/2010 Influenza Virus Vaccine 12398 Given 05/16/2010 Adacel- Tetanus Diphtheria P ertussis 96124 Refused 08/24/2020 Influenza Vaccin e Quadrivalent Preser/Antibiotic Free [place] Use 22680 Refused 08/07/2014 Influenza Virus Vaccine 09502 Refused 02/01/2014 Zoster Vaccine 11532 Refused 07/28/2013 Influenza Virus Vaccine 75585 Refused 08/18/2012 Influenza Virus Vaccine Vital Signs Date Vital Result Comment 03/15/2021 8:03am BP Systolic 142 mmHg BP Diastolic 86 mmHg BP Systolic Recheck 136 mmHg jw BP Diastolic Recheck 80 mmHg jw 03/01/2021 8:29am BP Systolic 150 mmHg BP Diastolic 98 mmHg Heart Rate 80 /min Height 62 inches 5'2" Weight 271.00 lb O2 % BldC Oximetry 98 % BMI (Body Mass Index) 49.6 kg/m2 Results Description No Information Available Procedures Date Code Description Status 09/06/2021 [id number] Mammogram Completed 03/15/2021 63705 Office/Outpatient Established SF MDM 10-19 Min Completed 08/14/2020 [id number] Mammogram Completed 07/26/2019 [id number] Mammogram Completed 07/08/2017 [id number] Mammogram Completed 06/11/2016 [id number] Mammogram Completed 05/23/2015 [id number] Mammogram Completed 03/24/2013 [id number] Colonoscopy Completed 03/24/2012 [id number] Diabetic Retinal Eye Exam Comple [employer] Description No Information Available Encounters Type Date Location Provider Dx Diagnosis Office Visit 03/15/2021 7:45a [facility] Nurse Je canas M54.5 Low [...] Nurse Jorge Luis golden Plan of Treatment Future Appointment(s):* 09/12/2021 8:00 am - Cisco Florence M.D. at [facility] 03/01/2021 - Cisco Florence M.D.* Z00.00 Encntr [...] discussed the importance of following up with Footwear Sales Representative in detail. Her last mammogram was done [...] and is in counseling with her new retail analyst's .6. Moderate persistent asthma: Stable on current regimen. Rauqel Blackman manages this when she follows up [...] symptoms. She will follow up with her Footwear Sales Representative specialist appropriately. I am going to see her again in 6 months with CMP and lipids. If she has new problems or issues sooner she will let us know. Functional Status Description No Information Available Mental Status Description No Information Available Referrals Description No Information Available
--- OUTSIDE RECORDS SUMMARY | 2021-10-12 13:29 | CCD | Continuity of Care Document ---
Author Author Lab Schedule, Lynnette Organization Unknown Address [address] [address] Phone Unavailable Care Team Providers Care Mobile Application Tester Name Role Phone Cisco Florence MD [facility] [phone] Problems Active Problems Provider Date Hypertensive disorder [...] off during those years,1 ppd - 1995. does not qualify for LDCT screening. Allergies and adverse reactions Active Allergies Criticality [...] times a day dx j45.901 1units J45.901 Christiana Salazar [facility] Albuterol Sulfate (2 .5mg/3ML) 0.083% Nebulizer use [...] CPT Code Status Date Vaccine Lot # [id number] Given 09/16/2010 Influenza Virus Vaccine 03020 Given 09/16/2010 Influenza Virus Vaccine 14435 Given 05/16/2010 Adacel- Tetanus Diphtheria P ertussis 26286 Refused 08/24/2020 Influenza Vaccin e Quadrivalent Preser/Antibiotic Free Im Use 46938 Refused 08/07/2014 Influenza Virus Vaccine 62107 Refused 02/01/2014 Zoster Vaccine 62746 Refused 07/28/2013 Influenza Virus Vaccine 19617 Refused 08/18/2012 Influenza Virus Vaccine Vital Signs Date Vital Result Comment 09/12/2021 8:03am BP Systolic 122 mmHg BP Diastolic 70 mmHg Heart Rate 68 /min Respiratory Rate 80 /min Height 62 inches 5'2" Weight 262.00 lb BMI (Body Mass Index) 47.9 kg/m2 03/15/2021 8:03am BP Systolic 142 mmHg BP Diastolic 86 mmHg BP Systolic Recheck 136 mmHg jw BP Diastolic Recheck 80 mmHg jw Results Test Acquired Date Facility Test Result H/L Range Note Comprehensive Chem Profile 09/10/2021 [facility]ahl[facility], josé miguel Polymerization Supervisor: Dr Migue Ramires [place], [place] [id number] [phone] Glucose 100 mg/dL High 74 - 99 [...] 60 mL/min >60 2 Lipid Profile 09/10/2021 [facility] Polymerization Supervisor: Dr Migue Ramires [place], [place] [id number] [phone] Cholesterol 185 mg/dL 131 - 200 Triglycerides [...] LITTLE GFR LEFT ESRD GFR <15 ON FIRE SPRINKLER INSTALLER Procedures Date Code Description Status 09/06/2021 [id number] Mammogram Completed 08/14/2020 [id number] Mammogram Completed 07/26/2019 [id number] Mammogram Completed 07/08/2017 [id number] Mammogram Completed 06/11/2016 [id number] Mammogram Completed 05/23/2015 [id number] Mammogram Completed 03/24/2013 [id number] Colonoscopy Completed 03/24/2012 [id number] Diabetic Retinal Eye Exam Comple Desti Description No Information Available Encounters Description No Information Available Assessments Date Code Description Provider 09/12/2021 M54.50 Low back pain, unspecified Cisco Florence M.D. 09/12/2021 I10 Essential (primary) hypertension Cisco Florence M.D. 09/12/2021 R76.0 Raised antibody titer Cisco smith M.D. 09/12/2021 K21.9 Gastro-esophageal reflux disease without esophagitis Cisco Florence M.D. 09/12/2021 F41.9 Anxiety disorder, unspecified Ronal Florence M.D. 09/12/2021 J45.40 Moderate persistent asthma, unco mplicated Cisco Florence M.D. 09/12/2021 G47.33 Obstructive sleep apnea (adult) (pediatric) Cisco Florence M.D. 09/12/2021 R07.89 Other chest pain Cisco Florence M.D. 09/12/2021 G62.9 Polyneuropathy, unspecified Rosalie Florence M.D. 09/12/2021 H53.8 Other visual disturbances Cisco Florence M.D. 09/10/2021 I10 Essential (primary) hypertension Cisco Florence M.D. 09/10/2021 I10 Essential (primary) hypertension Lab Schedule 09/10/2021 E78.1 Pure hyperglyceridemia Cisco Florence M.D. 09/10/2021 E78.1 Pure hyperglyceridemia Lab Sched ule Plan of Treatment Future Appointment(s):* 03/21/2022 7:40 am - Lab Schedule at [facility] * 03/24/2022 8:00 am - Cisco Florence M.D. at [facility] 09/12/2021 - Cisco Florence M.D.* M54.50 Low back pain, unspecified * I10 Essential (primary) hypertension * R76.0 Raised antibody titer * K21.9 Gastro-esophageal reflux disease without esophagitis * F41.9 Anxiety disorder, unspecified * J45.40 Moderate persistent asthma, uncomplicated * G47.33 Obstructive sleep apnea (adult) (pediatric) * R07.89 Other chest pain * G62.9 Polyneuropathy, unspecified * H53.8 Other visual disturbances * * Comments:* 1. Low back pain: Chronic and severe at times. Patient is referred to see at [facility] for evaluation of her back brace. Continue current regimen. We will continue to monitor.2. Hypertension: Controlled today (Dr Colon added HCTZ, no longer seeing). 3. Raised antibody titer: She is aware of the increased STRATEGIC PLANNING CONSULTANT and would like to delay evaluation by Rheumatology at this point.4. GERD without esophagitis: Doing well with watching diet and Protonix as needed, will continue and monitor.5. Anxiety disorder: She appears to be doing generally well. We discussed about her past posttraumatic stress. She did receive counselling via her game trapper's .6. Moderate persistent asthma: Stable on current regimen. She did use Qvar prior without much benefit. Raquel Blackman manages this when she follows up with her and will follow up appropriately.7. Obstru ctive sleep apnea: She has been doing well with the use of CPAP (100%) daily at night. She will continue to follow up with Raquel Blackman of Pulmonary Medicine appropriately.8. Other chest pain: No red flags. Patient is following up with Dr. Colon and will continue appropriate follow up.9. Polyneuropathy: Stable. She does have difficulty walking on her heels secondary to back issue. We will continue to monitor.10. Other visual disturbances: Patient is referred to see at [facility]. We will monitor.Ongoing cares: I am going to see her again in 6 months with CMP, CBC, Lipids and TSH. If she has new problems or issues sooner she will let us know. Functional Status Description No Information Available Mental Status Description No Information Available Referrals Refer to Reason for Referral Status Appt Date [facility] RAFTER CUTTING MACHINE OPERATOR CONSULT FOR FLASHES IN EYE S Created [address] [facility], [address] [place] [address] [phone]
--- OUTSIDE RECORDS SUMMARY | 2021-10-12 13:29 | CCD | Continuity of Care Document ---
Author Author Lab Schedule, Lynnette Organization Unknown Address [address] [address] Phone Unavailable Care Team Providers Care Jewelry Model Maker Name Role Phone Cisco Florence MD [facility] [phone] Problems Active Problems Provider Date Hypertensive disorder [...] CPT Code Status Date Vaccine Lot # [id number] Given 09/16/2010 Influenza Virus Vaccine 32870 Given 09/16/2010 Influenza Virus Vaccine 88274 Given 05/16/2010 Adacel- Tetanus Diphtheria P ertussis 22418 Refused 08/24/2020 Influenza Vaccin e Quadrivalent Preser/Antibiotic Free Im Use 59853 Refused 08/07/2014 Influenza Virus Vaccine 18803 Refused 02/01/2014 Zoster Vaccine 32187 Refused 07/28/2013 Influenza Virus Vaccine 59619 Refused 08/18/2012 Influenza Virus Vaccine Vital Signs [...] Available Procedures Date Code Description Status 09/06/2021 [id number] Mammogram Completed 03/15/2021 08732 Office/Outpatient Established SF MDM 10-19 Min Completed 08/14/2020 [id number] Mammogram Completed 07/26/2019 [id number] Mammogram Completed 07/08/2017 [id number] Mammogram Completed 06/11/2016 [id number] Mammogram Completed 05/23/2015 [id number] Mammogram Completed 03/24/2013 [id number] Colonoscopy Completed 03/24/2012 [id number] Diabetic Retinal Eye Exam Comple [employer] Description No Information Available Encounters Type Date Location Provider Dx Diagnosis Office Visit 03/15/2021 7:45a [facility] Nurse Je canas M54.5 Low [...] 8:00 am - Cisco Florence M.D. at [facility] 03/01/2021 - Cisco Florence M.D.* [...] discussed the importance of following up with Senior Cyber Security Analyst in detail. Her last mammogram was done [...] and is in counseling with her new mental health nurse practitioner's .6. Moderate persistent asthma: Stable on current [...] symptoms. She will follow up with her Senior Cyber Security Analyst specialist appropriately. I am going to see her again in 6 months with CMP and lipids. If she has new problems or issues sooner she will let us know. Functional Status Description No Information Available Mental Status Description No Information Available Referrals Description No Information Available
--- OUTSIDE RECORDS SUMMARY | 2021-10-12 13:30 | CCD | Continuity of Care Document ---
Author Author Lynnette SEGURA MD Organization Unknown Address [address] [place] [address], [address] [place] [address] Phone [phone] Care Team Providers Care Director Medical Safety Name Role Phone Cisco Florence MD [facility] [phone] Problems Active Problems Provider Date Essential hypertension Jamar Segura MD Onset: 12/16 Social History Type Date Description Comments Sex Unknown ETOH Use Denies alcohol use Tobacco Use Start: Unknown End: Unknown Patient is a former smoker Smoking Status Reviewed: 08/28/21 Patient is a former smoker Allergies and adverse reactions Active Allergies Criticality Reaction | Severity Comments Date Erythromycin Unable to assess criticality 08/07/2015 Aspirin Unable to assess criticality 08/07/2015 Medications Active Medications SIG Qnty Indications Ordering Provide r Date Losartan Potassium/Hydrochlorothiazide 100-12.5mg Tablets Cisco Florence MD 000 Hydrocodone Bitartrate/Acetaminophen 5-325mg Tablets Cisco Florence MD 0 Amoxicillin/Clavulanate Potassium 875-125mg Tablets 1 Tablet By Mouth Two Times A Day For 10 Days Unknown Qvar Redihaler 80mcg/Act Aerosol Raquel Blackman ANP Pantoprazole Sodium 40mg Tablets Cisco Ramesh MD Ventolin HFA 108(90Base) mcg/Act A erosol Cisco Florence MD Losartan Potassium 50mg Tablets Cisco Florence MD Cetirizine HCL 10mg Tablets Cisco Florence MD Albuterol Sulfate (2 .5mg/3ML) 0.083% Nebulizer Cisco Florence MD 0 Losartan Potassium 25mg Tablets Zhanna Figueroa DO Immunizations Description No Information Available Vital Signs Date Vital Result Comment 07/28/2018 9:21am Body Temperature 97.3 F 06/30/2018 11:10am BP Systolic 150 mmHg BP Diastolic 80 mmHg Heart Rate 74 /min Body Temperature 97.5 F Height 62.5 inches 5'2.50" Weight 244.25 lb BMI (Body Mass Index) 44.0 kg/m2 Respiratory Rate 15 /min Results Description No Information Available Procedures Date Code Description Status 08/28/2021 97974 Office/Outpatient Established Lo w MDM 20-29 Min Completed 08/28/2021 90410 X-Ray Knee Ap & Lateral W/Obliqu es Three Views Completed Medical Devices Description No Information Available Encounters Type Date Location Provider Dx Diagnosis Office Visit 08/28/2021 3:00p [place] Jamar Segura MD Z4 7.1 Aftercare following joint replacement surgery M17.0 Bilateral primary osteoarthr itis of knee Z96.653 Presence of artificial knee joint, bilateral Assessments Date Code Description Provider 08/28/2021 Z47.1 Aftercare following joint replac ement surgery Jamar Segura MD 08/28/2021 M17.0 Bilateral primary osteoarthritis of knee Jamar Segura MD 08/28/2021 M17.0 Bilateral primary osteoarthritis of knee Freddie King MD 08/28/2021 Z96.653 Presence of artificial knee join t, bilateral Jamar Segura MD Plan of Treatment 08/28/2021 - Jamar Segura MD* Z47.1 Aftercare following joint replacement surgery* Follow up:* f/u in 2 years abigail 3 view xrays * M17.0 Bilateral primary osteoarthritis of knee * Z96.653 Presence of artificial knee joint, bilateral Functional Status Description No Information Available Mental Status Description No Information Available Referrals Description No Information Available
--- OUTSIDE RECORDS SUMMARY | 2021-10-12 13:30 | CCD | Continuity of Care Document ---
Author Author Lynnette SEGURA MD Organization Unknown Address [address] [place] [address], [address] [place] [address] Phone [phone] Care Team Providers Care Body Press Operator Name Role Phone Cisco Florence MD [facility] [phone] Problems Active Problems Provider Date Essential hypertension [...] Available Procedures Date Code Description Status 08/28/2021 88828 X-Ray Knee Ap & Lateral W/Obliqu es Three Views Completed 08/28/2021 08450 X-Ray Knee Ap & Lateral W/Obliqu es Three Views Completed Medical Devices Description No Information Available Encounters Description No Information Available Assessments Date Code Description Provider 08/28/2021 Z47.1 Aftercare following joint replac ement surgery Jamar Segura MD 08/28/2021 M17.0 Bilateral primary osteoarthritis of knee Freddie King MD 08/28/2021 Z96.653 Presence of artificial knee join t, bilateral Jamar Segura MD Plan of Treatment 08/28/2021 - Jamar Segura MD* Z47.1 Aftercare following joint replacement surgery* Follow up:* f/u in 2 years abigail 3 view xrays * Z96.653 Presence of artificial knee joint, bilateral Functional Status Description No Information Available Mental Status Description No Information Available Referrals Description No Information Available
--- OUTSIDE RECORDS SUMMARY | 2021-10-12 13:30 | CCD | Continuity of Care Document ---
Author Author Lynnette DUNNE Organization Unknown Address [address] [place] [address] [place] [address] Phone [phone] Care Team Providers Care Program Review Director Name Role Phone Cisco Florence MD [facility] [phone] Problems Description No Information Available Social History Type Date Description Comments Sex Unknown ETOH Use Denies alcohol use Tobacco Use Start: Unknown End: Unknown Patient is a former smoker Smoking Status Reviewed: 07/14/21 Patient is a former smoker Allergies, Adverse Reactions, Alerts Active Allergies Criticality Reaction | Severity Comments Date Aspirin Unable to assess criticality 09/26/2019 Erythromycin Unable to assess criticality 09/26/2019 Mucinex Nasal [place] Unable to assess criticality 09/26/2019 Flonase Unable to assess criticality 09/26/2019 Medications Active Medications SIG Qnty Indications Ordering Provide r Date Amoxicillin/Clavulanate Potassium 875-125mg Tablets 1 tab by mouth twice a day for 10 days 20tabs J01.90 Migue Ramires JR., M.D. 07/14/2021 Vitamin C 500mg Capsules qd Unknown Qvar 40mcg/Act Aerosol Unknown Omeprazole 10mg Capsules DR Unknown Vitamin D3 Unknown Zyrtec Allergy Unknown Zinc Unknown Albuterol prn Unknown Losartan Potassium 100mg Tablets Unknown Afrin Nasal [place] 0.05% Solution 2 sprays to affected nostril a first onset of nosebleed; do not use more than 2 times a day Unknown Hydrocodone Bitartrate/Acetaminophen 5-325mg Tablets prn Unknown Curamin Extra Strength Unknown Immunizations Description No Information Available Vital Signs Date Vital Result Comment 07/14/2021 12:14pm BP Systolic 159 mmHg BP Diastolic 95 mmHg Heart Rate 89 /min Respiratory Rate 20 /min O2 % BldC Oximetry 98 % Body Temperature 97.1 F Weight 267.00 lb Height 62 inches 5'2" BMI (Body Mass Index) 48.8 kg/m2 Pain Level 4 12/21/2020 5:48pm BP Systolic 170 mmHg BP Diastolic 100 mmHg Heart Rate 89 /min Respiratory Rate 16 /min O2 % BldC Oximetry 97 % Body Temperature 96.9 F Weight 275.00 lb Height 62 inches 5'2" BMI (Body Mass Index) 50.3 kg/m2 Pain Level 6 Results Description No Information Available Procedures Date Code Description Status 07/14/2021 73858 Office/Outpatient Established Mo d MDM 30-39 Min Completed Medical Devices Description No Information Available Encounters Type Date Location Provider Dx Diagnosis Office Visit 07/14/2021 11:15a Main Office Taty Renee J0 6.9 Acute upper respiratory infection, unspecified J01.90 Acute sinusitis, unspecified I10 Essential (primary) hyperten cipriano Z20.828 Contact w and exposure to ot h viral communicable diseases Assessments Date Code Description Provider 07/14/2021 J06.9 Acute upper respiratory infectio n, unspecified Ambrosio Renee.Amarilys. 07/14/2021 J01.90 Acute sinusitis, unspecified Santos MendezALandon 07/14/2021 I10 Essential (primary) hypertension Ambrosio Renee.ALandon 07/14/2021 Z20.828 Contact with and (lance spected) exposure to other viral communicable diseases Walter Renee. Plan of Treatment 07/14/2021 - Walter Renee.* J06.9 Acute upper respiratory infection, unspecified* Comments:* Supportive care with OTC cough/cold meds as needed per package instructions. Increase fluidsRestFollow with PCP Return as needed for increasing or persisting symptoms. * J01.90 Acute sinusitis, unspecified* New Medication:* Amoxicillin/Clavulanate Potassium 875-125 mg - 1 tab by mouth twice a day for 10 days * Comments:* Supportive careIncrease fluidsOTC medications per package instructionsTake antibiotics for at least 7 days, full 10 days if symptoms not fully resolvedFollow with PCPReturn as needed in 3-5 days for increasing or persisting symptoms. * I10 Essential (primary) hypertension* Comments:* poorly controlled todayhome monitoringclose follow up with PCP * Z20.288 Contact with and (suspected) exposure to other viral communicable diseases* Comments:* patient declines testing for COVID-19Discussed that her current symptoms are consistent with possible COVID-19 infectionRecommendation is to act as if she has it and self-quarantine for at least 10 days from symptom onset Functional Status Description No Information Available Mental Status Description No Information Available Referrals Description No Information Available
--- OUTSIDE RECORDS SUMMARY | 2021-10-12 13:30 | CCD | Continuity of Care Document ---
Author Author Lynnette SEGURA MD Organization Unknown Address [address] [place] [address], [address] [place] [address] Phone [phone] Care Team Providers Care Bag Valver Name Role Phone Cisco Florence MD [facility] [phone] Problems Active Problems Provider Date Essential hypertension [...] Available Procedures Date Code Description Status 08/28/2021 19979 Office/Outpatient Established Lo w MDM 20-29 Min Completed 08/28/2021 62805 X-Ray Knee Ap & Lateral W/Obliqu es Three Views Completed Medical Devices Description No Information Available Encounters Type Date Location Provider Dx Diagnosis Office Visit 08/28/2021 3:00p [place] Jamar Segura MD Z4 7.1 Aftercare following [...]
--- OUTSIDE RECORDS SUMMARY | 2021-10-12 13:30 | CCD | Continuity of Care Document ---
Author Author Lynnette FLORENCE M.D. Organization Unknown Address [address] [facility] [address] [place] [address] Phone [phone] Care Team Providers Care Loan Adviser Name Role Phone Cisco Florence MD [facility] [phone] Problems Active Problems Provider Date Hypertensive disorder [...] off during those years,1 ppd - 1995. Allergies, Adverse Reactions, Alerts Active Allergies Criticality [...] as needed M54.5 Not A Chronic Med 21tabs Cisco Florence M.D. 07/26/2021 Zyrtec Allergy 10mg Tablets 1 by mouth every day 90tabs Cisco Florence M.D. 03/01/2021 Nebulizer Kit/Tubing/Mouthpiece K it [...] Aerosol 1 puff twice a day Unknown History Medications Losartan Potassium 50mg Tablets 1 by mouth every day 90tabs M54.5 Cisco Florence M.D. 03/01/2021 - 07/26/2021 Immunizations CPT Code Status Date Vaccine Lot # [id number] Given 09/16/2010 Influenza Virus Vaccine 43132 Given 09/16/2010 Influenza Virus Vaccine 52131 Given 05/16/2010 Adacel- Tetanus Diphtheria P ertussis (Age64 & Under) 36376 Refused 08/24/2020 Influenza Vaccin e Quadrivalent Preser/Antibiotic Free Im Use 70608 Refused 08/07/2014 Influenza Virus Vaccine 32260 Refused 02/01/2014 Zoster Vaccine 99222 Refused 07/28/2013 Influenza Virus Vaccine 15700 Refused 08/18/2012 Influenza Virus Vaccine Vital Signs [...] BMI (Body Mass Index) 49.6 kg/m2 Results Test Acquired Date Facility Test Result H/L Range Note Laboratory test finding 03/01/[address] [address] [phone] C Reactive Protein Quantitativ 0.41 mg/dL High 0 .00-0.30 Antinuclear Antibodies 03/01/[address] [address] [phone] Antinuclear Antibodies Direct Positive Abnormal Ne gative Anti Double Strand-Dna AB <1 IU/mL Normal 0-9 1 ASPHALT DISTRIBUTOR OPERATOR Antibodies 1.1 AI High 0.0-0.9 Ryan Antibodies <0.2 AI Normal 0.0-0.9 Sjogren's Anti SS-A <0.2 AI Normal 0.0-0.9 Sjogren's Anti SS-B <0.2 AI Normal 0.0-0.9 Tracey Comment (SEE NOTE) Normal . 2 Laboratory test finding 03/01/[address] [address] [phone] Rheumatoid Factor Quant < 10.0 IU/mL Normal <15.0 Laboratory test finding 03/01/2021 [facility] Community Relations Rep: [place] [address] [phone] Sed Rate 13 mm/hr 0 - 15 Comprehensive Chem Profile 02/21/2021 [facility] Community Relations Rep: [place] [address] [phone] Glucose 99 mg/dL 74 - 99 3 BUN 16 mg/dL 7 - 18 Creatinine 0.9 mg/dL 0.6 - 1.3 Sodium 138 mEq/L 136 - 145 Potassium 4.5 mEq/L 3.5 - 5.1 Chloride 103 mEq/L 98 - 107 Carbon Dioxide 28 mEq/L 21 - 32 Calcium 9.0 mg/dL 8.5 - 10.1 Alk. Phosphatase 39 mg/dL Low 46 - 116 Total Bilirubin 0.4 mg/dL 0.2 - 1.0 Ast (Sgot) 16 U/L 15 - 37 Alt (SGPT) 32 U/L 12 - 78 Albumin 4.1 g/dL 3.4 - 5.0 Total Protein 7.6 g/dL 6.4 - 8.2 A/G Ratio 1.17 CALC 1.00 - 1.90 GFR >= 60 mL/min >60 GFR >= 60 mL/min >60 4 Lipid Profile 02/21/2021 [facility] , Community Relations Rep: Dr Migue Ramires [place], [place] [address] [phone] Cholesterol 183 mg/dL 131 - 200 Triglycerides 256 mg/dL High 30 - 150 HDL Cholesterol 47 mg/dL 35 - 60 LDL (Calculated) 85 CALC 50 - 159 Laboratory test finding 02/21/2021 [facility], Community Relations Rep: [place] [address] [phone] Thyroid Stimulating Hormone 2.36 uIU/mL 0.3 6 - 3.74 1 Negative <5 Equivocal 5 - 9 Positive >9 2 . Autoantibody Disease Association Condition Frequency -------- --------- Antinuclear Antibody, SLE, mixed connective Direct (TRACEY-D) tissue diseases -------- --------- dsDNA SLE 40 - 60% -------- --------- Chromatin Drug induced SLE 90% SLE 48 - 97% -------- --------- SSA (Ro) SLE 25 - 35% Sjogren's Syndrome 40 - 70% Lupus 100% -------- --------- SSB (La) SLE 10% Sjogren's Syndrome 30% ------- --------- Sm (anti-Ryan) SLE 15 - 30% ------- --------- ASPHALT DISTRIBUTOR OPERATOR Mixed Connective Tissue Disease 95% (U1 nRNP, SLE 30 - 50% anti-ribonucleoprotein) Polymyositis and/or Dermatomyositis 20% -------- --------- Scl-70 (antiDNA Scleroderma (diffuse) 20 - 35% topoisomerase) Crest 13% -------- --------- Rossana-1 Polymyositis and/or Dermatomyositis 20 - 40% -------- --------- Centromere B Scleroderma - Crest variant 80% Performed at: RN - [facility] [address] [id number] Community Relations Rep: Carissa Tipton MD, Phone: [phone] 100-125 mg/dL PRE-DIABET ES/FASTING >126 mg/dL DIABETES/FASTING 4 CHRONIC KIDNEY DISEASE STAGI NG PER NKF STAGE I & II GFR >= 60 NORMAL TO MILDLY DECREASED STAGE III GFR 30-59 MODERATELY DECREASED STAGE IV GFR 15-29 SEVERELY DECREASED STAGE V GFR <15 VERY LITTLE GFR LEFT ESRD GFR <15 ON LEGUILLON DEBEADER Procedures Date Code Description Status 03/15/2021 89789 Office/Outpatient Established SF MDM 10-19 Min Completed 03/01/2021 57604 Est Prevent Med (40-64Yrs) Compl eted 08/14/2020 [id number] Mammogram Completed 07/26/2019 [id number] Mammogram Completed 07/08/2017 [id number] Mammogram Completed 06/11/2016 [id number] Mammogram Completed 05/23/2015 [id number] Mammogram Completed 03/24/2013 [id number] Colonoscopy Completed 03/24/2012 [id number] Diabetic Retinal Eye Exam Comple FIA Formula E Description No Information Available Encounters Type Date Location Provider Dx Diagnosis Office Visit 03/15/2021 7:45a [facility] Nurse Sched missael M54.5 Low back pain I10 Essential (primary) hyperten cipriano R76.0 Raised antibody titer Office Visit 03/01/2021 8:30a [facility] Cisco Florence M.D. Z00.00 Encntr for general adult medical exam w/ o abnormal findings I10 Essential (primary) hyperten cipriano E78.1 Pure hyperglyceridemia K21.9 Gastro-esophageal reflux dis ease without esophagitis F41.9 Anxiety disorder, unspecifie d J45.40 Moderate persistent asthma, uncomplicated G47.33 Obstructive sleep apnea (yoel lt) (pediatric) R07.89 Other chest pain G62.9 Polyneuropathy, unspecified M25.59 Pain in other specified join t Assessments Date Code Description Provider 03/15/2021 M54.5 Low back pain Cisco Florence M.D. 03/15/2021 M54.5 Low back pain Nurse Schedule 03/15/2021 I10 Essential (primary) hypertension Cisco Florence M.D. 03/15/2021 I10 Essential (primary) hypertension Nurse Schedule 03/15/2021 R76.0 Raised antibody titer Cisco smith M.D. 03/15/2021 R76.0 Raised antibody titer Nurse Jorge Luis golden 03/01/2021 Z00.00 Encounter for genera l adult medical examination without abnormal findings Cisco Florence M.D. 03/01/2021 I10 Essential (primary) hypertension Cisco Florence M.D. 03/01/2021 E78.1 Pure hyperglyceridemia Cisco Florence M.D. 03/01/2021 K21.9 Gastro-esophageal reflux disease without esophagitis Cisco Florence M.D. 03/01/2021 F41.9 Anxiety disorder, unspecified Ronal Florence M.D. 03/01/2021 J45.40 Moderate persistent asthma, unco mplicated Cisco Florence M.D. 03/01/2021 G47.33 Obstructive sleep apnea (adult) (pediatric) Cisco Florence M.D. 03/01/2021 R07.89 Other chest pain Cisco Florence M.D. 03/01/2021 G62.9 Polyneuropathy, unspecified Rosalie Florence M.D. 03/01/2021 M25.59 Pain in other specified joint Ronal Florence M.D. 02/21/2021 I10 Essential (primary) hypertension Cisco Florence M.D. 02/21/2021 I10 Essential (primary) hypertension Lab Schedule 02/21/2021 K21.9 Gastro-esophageal reflux disease without esophagitis Cisco Florence M.D. 02/21/2021 K21.9 Gastro-esophageal reflux disease without esophagitis Lab Schedule 02/21/2021 E78.1 Pure hyperglyceridemia Cisco Florence M.D. 02/21/2021 E78.1 Pure hyperglyceridemia Lab Sched missael Plan of Treatment Future Appointment(s):* 09/10/2021 8:50 am - Lab Schedule at [facility] * 09/12/2021 8:00 am - Cisco Florence M.D. at [facility] 03/01/2021 - Cisoc Florence M.D.* Z00.00 Encntr for general adult [...] discussed the importance of following up with System Analyst in detail. Her last mammogram was [...] and is in counseling with her new plexiglas former's .6. Moderate persistent asthma: Stable on current [...] symptoms. She will follow up with her System Analyst specialist appropriately. I am going to see her again in 6 months with CMP and lipids. If she has new problems or issues sooner she will let us know. Functional Status Description No Information Available Mental Status Description No Information Available Referrals Refer to Reason for Referral Status Appt Date Leon Colon CARDIOLOGY CONSULT FOR CHEST PAIN Patient Notif ied 05/14/2021 [facility] [address] , [place] [address] [phone]
--- OUTSIDE RECORDS SUMMARY | 2021-10-12 13:30 | CCD | Continuity of Care Document ---
Author Author Lynnette DUNNE Organization Unknown Address [address] [place] [address] [place] [address] Phone [phone] Care Team Providers Care Technical Sales Representative Name Role Phone Cisco Florence MD [facility] [phone] Problems Description No Information Available Social History [...] Unable to assess criticality 09/26/2019 Mucinex Nasal Davis Unable to assess criticality 09/26/2019 Flonase Unable [...] Losartan Potassium 100mg Tablets Unknown Afrin Nasal Davis 0.05% Solution 2 sprays to affected nostril [...] Available Procedures Date Code Description Status 07/14/2021 13422 Office/Outpatient Established Mo d MDM 30-39 Min [...] todayhome monitoringclose follow up with PCP * Z20.617 Contact with and (suspected) exposure to other [...]
--- OUTSIDE RECORDS SUMMARY | 2021-10-12 13:30 | CCD ---
Author Author [facility] Organization [facility] Address Unknown Phone Unavailable Care Team Providers Care Mutual Fund Manager Name Role Phone Pope, Jolene HEEL BURNISHER Unavailable Unavailable Pope, Jolene HEEL BURNISHER Unavailable Unavailable Pope, Jolene HEEL BURNISHER Unavailable Unavailable Pope, Jolene HEEL BURNISHER Unavailable Unavailable Pope, Jolene HEEL BURNISHER Unavailable Unavailable Pope, Jolene HEEL BURNISHER Unavailable Unavailable Pope, Jolene HEEL BURNISHER Unavailable Unavailable Pope, Jolene HEEL BURNISHER Unavailable Unavailable Pope, Jolene HEEL BURNISHER Unavailable Unavailable Pope, Jolene HEEL BURNISHER Unavailable Unavailable Pope, Jolene HEEL BURNISHER Unavailable Unavailable Pope, Jolene HEEL BURNISHER Unavailable Unavailable Pope, Jolene HEEL BURNISHER Unavailable Unavailable Hiral, L Raquel HEEL BURNISHER Unavailable Unavailable Hiral, L Raquel HEEL BURNISHER Unavailable Unavailable Hiral, L Raquel HEEL BURNISHER Unavailable Unavailable Hiral, L Raquel HEEL BURNISHER Unavailable Unavailable Hiral, L Raquel HEEL BURNISHER Unavailable Unavailable Hiral, L Raquel HEEL BURNISHER Unavailable Unavailable Hiral, L Raquel HEEL BURNISHER Unavailable Unavailable Hiral, L Raquel HEEL BURNISHER Unavailable Unavailable Hiral, L Raquel HEEL BURNISHER Unavailable Unavailable Hiral, L Raquel HEEL BURNISHER Unavailable Unavailable Hiral, L Raquel HEEL BURNISHER Unavailable Unavailable Hiral, L Raquel HEEL BURNISHER Unavailable Unavailable Hiral, L Raquel HEEL BURNISHER Unavailable Unavailable Hiral, L Raquel HEEL BURNISHER Unavailable Unavailable Hiral, L Raquel HEEL BURNISHER Unavailable Unavailable Hiral, L Raquel HEEL BURNISHER Unavailable Unavailable Hiral, L Raquel HEEL BURNISHER Unavailable Unavailable Hiral, L Raquel HEEL BURNISHER Unavailable Unavailable Hiral, L Raquel HEEL BURNISHER Unavailable Unavailable Hiral, L Raquel HEEL BURNISHER Unavailable Unavailable Hiral, L Raquel HEEL BURNISHER Unavailable Unavailable Hiral, L Raquel HEEL BURNISHER Unavailable Unavailable Hiral, L Raquel HEEL BURNISHER Unavailable Unavailable Hiral, L Raquel HEEL BURNISHER Unavailable Unavailable Hiral, L Raquel HEEL BURNISHER Unavailable Unavailable Ludivina F Cisco ROSARIO Unavailable Unavailable Ludivina F Cisco ROSARIO Unavailable Unavailable Ludivina F Cisco ROSARIO Unavailable Unavailable Ludivina F Cisco ROSARIO Unavailable Unavailable Ludivina F Cisco ROSARIO Unavailable Unavailable Ludivina F Cisco ROSARIO Unavailable Unavailable White F Cisco ROSARIO Unavailable Unavailable White F Cisco ROSARIO Unavailable Unavailable White F Cisco ROSARIO Unavailable Unavailable Ludivina F Cisco ROSARIO Unavailable Unavailable Ludivina F Cisco ROSARIO Unavailable Unavailable Ludivina F Cisco ROSARIO Unavailable Unavailable Ludivina F Cisco ROSARIO Unavailable Unavailable White F Cisco ROSARIO Unavailable Unavailable White F Cisco ROSARIO Unavailable Unavailable Ludivina F Cisco ROSARIO Unavailable Unavailable White F Cisco ROSARIO Unavailable Unavailable Ludivina F Cisco ROSARIO Unavailable Unavailable Ludivina F Cisco ROSARIO Unavailable Unavailable Ludivina F Cisco ROSARIO Unavailable Unavailable Ludivina F Cisco ROSARIO Unavailable Unavailable Ludivina F Cisco ROSARIO Unavailable Unavailable Ludivina F Cisco ROSARIO Unavailable Unavailable Ludivina F Cisco ROSARIO Unavailable Unavailable Ludivina F Cisco ROSARIO Unavailable Unavailable Ludivina F Cisco ROSARIO Unavailable Unavailable Ludivina F Cisco ROSARIO Unavailable Unavailable Ludivina F Cisco ROSARIO Unavailable Unavailable Ludivina F Cisco ROSARIO Unavailable Unavailable Ludivina F Cisco ROSARIO Unavailable Unavailable Ludivina F Cisco ROSARIO Unavailable Unavailable Ludivina F Cisco ROSARIO Unavailable Unavailable Ludivina F Cisco ROSARIO Unavailable Unavailable Blayne Florence MD Unavailable Unavailable Blayne Florence MD Unavailable Unavailable Blayne Florence MD Unavailable Unavailable Blyane Florence MD Unavailable Unavailable Ludivina F Cisco ROSARIO Unavailable Unavailable Blayne Florence MD Unavailable Unavailable Ludivina F Cisco ROSARIO Unavailable Unavailable Blayne Florence MD Unavailable Unavailable Blayne Florence MD Unavailable Unavailable Blayne Florence MD Unavailable Unavailable Blayne Florence MD Unavailable Unavailable Blayne Florence MD Unavailable Unavailable Ludivina F Cisco ROSARIO Unavailable Unavailable Ludivina F Cisco ROSARIO Unavailable Unavailable Ludivina F Csico ROSARIO Unavailable Unavailable Ludivina F Cisco ROSARIO Unavailable Unavailable Ludivina F Cisco ROSARIO Unavailable Unavailable Ludivina F Cisco ROSARIO Unavailable Unavailable Ludivina F Cisco ROSARIO Unavailable Unavailable Ludivina F Cisco ROSARIO Unavailable Unavailable Ludivina F Cisco ROSARIO Unavailable Unavailable Ludivina F Cisco ROSARIO Unavailable Unavailable Ludivina F Cisco ROSARIO Unavailable Unavailable Ludivina F Cisco ROSARIO Unavailable Unavailable Blayne Florence MD Unavailable Unavailable Blayne Florence MD Unavailable Unavailable Ludivina F Cisco ROSARIO Unavailable Unavailable Ludivina Blayne Peck MD Unavailable Unavailable Blayne Florence MD Unavailable Unavailable Blayne Florence MD Unavailable Unavailable Blayne Florence MD Unavailable Unavailable Blayne Florence MD Unavailable Unavailable Blayne Florence MD Unavailable Unavailable Blayne Florence MD Unavailable Unavailable Blayne Florence MD Unavailable Unavailable Blayne Florence MD Unavailable Unavailable Blayne Florence MD Unavailable Unavailable Blayne Florence MD Unavailable Unavailable Blayne Florence MD Unavailable Unavailable Blayne Florence MD Unavailable Unavailable Ludivina Blayne Cisco ROSARIO Unavailable Unavailable Ludivina Blayne Cisco ROSARIO Unavailable Unavailable Ludivina Blayne Cisco ROSARIO Unavailable Unavailable Ludivina Blayne Cisco ROSARIO Unavailable Unavailable Young, Klarissa Alda PA Unavailable Unavailable Young, Klarissa Alda PA Unavailable Unavailable Young, Klarissa Alda PA Unavailable Unavailable Young, Klarissa Alda PA Unavailable Unavailable Young, Klarissa Alda PA Unavailable Unavailable Young, Klarissa Alda PA Unavailable Unavailable Young, Klarissa Alda PA Unavailable Unavailable Young, Klarissa Alda PA Unavailable Unavailable Young, Klarissa Alda PA Unavailable Unavailable Young, Klarissa Alda PA Unavailable Unavailable UZAIR, LYNNE PA Unavailable Unavailable UZAIR, LYNNE PA Unavailable Unavailable UZAIR, LYNNE PA Unavailable Unavailable UZAIR, LYNNE PA Unavailable Unavailable UZAIR, LYNNE PA Unavailable Unavailable UZAIR, LYNNE PA Unavailable Unavailable UZAIR, LYNNE PA Unavailable Unavailable UZAIR, LYNNE PA Unavailable Unavailable UZAIR, LYNNE PA Unavailable Unavailable UZAIR, LYNNE PA Unavailable Unavailable UZAIR, LYNNE PA Unavailable Unavailable UZAIR, LYNNE PA Unavailable Unavailable UZAIR, LYNNE PA Unavailable Unavailable UZAIR, LYNNE PA Unavailable Unavailable UZAIR, LYNNE PA Unavailable Unavailable UZAIR, LYNNE PA Unavailable Unavailable UZAIR, LYNNE PA Unavailable Unavailable UZAIR, LYNNE PA Unavailable Unavailable UZAIR, LYNNE PA Unavailable Unavailable UZAIR, LYNNE PA Unavailable Unavailable UZAIR, LYNNE PA Unavailable Unavailable UZAIR, LYNNE PA Unavailable Unavailable UZAIR, LYNNE PA Unavailable Unavailable UZAIR, LYNNE PA Unavailable Unavailable UZAIR, LYNNE PA Unavailable Unavailable UZAIR, LYNNE PA Unavailable Unavailable UZAIR, LYNNE PA Unavailable Unavailable UZAIR, LYNNE PA Unavailable Unavailable UZAIR, LYNNE PA Unavailable Unavailable UZAIR, LYNNE PA Unavailable Unavailable UZAIR, LYNNE PA Unavailable Unavailable UZAIR, LYNNE PA Unavailable Unavailable UZAIR, LYNNE PA Unavailable Unavailable UZAIR, LYNNE PA Unavailable Unavailable UZAIR, LYNNE PA Unavailable Unavailable UZAIR, LYNNE PA Unavailable Unavailable Leon Colon MD Unavailable Unavailable SleBlack castelanjtech Unavailable Unavailable Black Colonjtech Unavailable Unavailable SledeandrekaBlackjtech Unavailable Unavailable SleBlack castelanjtech Unavailable Unavailable SledeandrekaBlackjtech Unavailable Unavailable SleBlack castelanjtech Unavailable Unavailable SledeandrekaBlackjtech Unavailable Unavailable SleAilin castelantech Unavailable Unavailable Ailin Colontech Unavailable Unavailable Leon Colon MD Unavailable Unavailable Ailin Colontech Unavailable Unavailable Ailin Colontech Unavailable Unavailable Black Colonjtech Unavailable Unavailable Leon Colon MD Unavailable Unavailable Leon Colon MD Unavailable Unavailable Leon Colon MD Unavailable Unavailable Leon Colon MD Unavailable Unavailable Ailin Colontech Unavailable Unavailable Black Colonjtech Unavailable Unavailable Leon Colon MD Unavailable Unavailable Leon Colon MD Unavailable Unavailable Leon Colon MD Unavailable Unavailable Leon Colon MD Unavailable Unavailable Ailin Colontech Unavailable Unavailable Black Colonjtech Unavailable Unavailable Ailin Colontech Unavailable Unavailable Ailin Colontech Unavailable Unavailable Leon Colon MD Unavailable Unavailable Ailin Colontech Unavailable Unavailable Black Colonjtech Unavailable Unavailable Black Colonjtech Unavailable Unavailable Black Colonjtech Unavailable Unavailable Black Colonjtech Unavailable Unavailable Ailin Colontech Unavailable Unavailable Ailin Colontech Unavailable Unavailable Ailin Colontech Unavailable Unavailable SleBlack castelanjtech Unavailable Unavailable Black Colonjtech Unavailable Unavailable SleBlack castelanjtech Unavailable Unavailable Black Colonjtech Unavailable Unavailable Black Colonjtech Unavailable Unavailable SlezLeon amador MD Unavailable Unavailable Slezka, Vojtech MD Unavailable Unavailable SleBlack castelanjtech Unavailable Unavailable Sledeandreka Vojtech Unavailable Unavailable SleBlack castelanjtech Unavailable Unavailable Slezka Vojtech MD Unavailable Unavailable Slezmarjorie Vojtech MD Unavailable Unavailable Slezka Vojtech MD Unavailable Unavailable Slezka Vojtech MD Unavailable Unavailable Slezka Vojtech MD Unavailable Unavailable Sledeandreka Vojtech MD Unavailable Unavailable Slezka Vojtech MD Unavailable Unavailable Sledeandreka Vojtech MD Unavailable Unavailable Slezka, Vojtech MD Unavailable Unavailable Slezka, Vojtech MD Unavailable Unavailable Slezka, Vojtech MD Unavailable Unavailable Slezka, Vojtech MD Unavailable Unavailable [id number], NA Unavailable Unavailable Campanaro, Mare Melany PA Unavailable Unavailable Campanaro, Mare Melany PA Unavailable Unavailable Campanaro, Mare Melany PA Unavailable Unavailable Campanaro, Mare Melany PA Unavailable Unavailable Campanaro, Mare Melany PA Unavailable Unavailable Campanaro, Mare Melany PA Unavailable Unavailable Campanaro, Mare Melany PA Unavailable Unavailable Campanaro, Mare Melany PA Unavailable Unavailable Campanaro, Mare Melany PA Unavailable Unavailable Campanaro, Mare Melany PA Unavailable Unavailable Campanaro, Mare Melany PA Unavailable Unavailable Campanaro, Mare Melany PA Unavailable Unavailable Campanaro, Mare Melany PA Unavailable Unavailable Campanaro, Mare Melany PA Unavailable Unavailable Campanaro, Mare Melany PA Unavailable Unavailable Campanaro, Mare Melany PA Unavailable Unavailable Campanaro, Mare Melany PA Unavailable Unavailable Marin Segura MD Unavailable Unavailable Marin Segura MD Unavailable Unavailable Marin Segura MD Unavailable Unavailable Marin Segura MD Unavailable Unavailable Marin Segura MD Unavailable Unavailable Marin Segura MD Unavailable Unavailable Marin Segura MD Unavailable Unavailable Marin Segura MD Unavailable Unavailable Marin Segura MD Unavailable Unavailable Marin Segura MD Unavailable Unavailable Marin Segura MD Unavailable Unavailable Marin Segura MD Unavailable Unavailable Marin Segura MD Unavailable Unavailable Marin Segura MD Unavailable Unavailable Vaneenenaam, Marin Rodriguez MD Unavailable Unavailable Vaneenenaam, Marin Rodriguez MD Unavailable Unavailable Vaneenenaam, Marin Rodriguez MD Unavailable Unavailable Vaneenenaam, Marin Rodriguez MD Unavailable Unavailable Vaneenenaam, Marin Rodriguez MD Unavailable Unavailable Vaneenenaam, Marin Rodriguez MD Unavailable Unavailable Vaneenenaam, Marin Rodriguez MD Unavailable Unavailable Vaneenenaam, Marin Rodriguez MD Unavailable Unavailable Vaneenenaam, Marin Rodriguez MD Unavailable Unavailable Vaneenenaam, Marin Rodriguez MD Unavailable Unavailable Vaneenenaam, Marin Rodriguez MD Unavailable Unavailable Vaneenenaam, Marin Rodriguez MD Unavailable Unavailable Vaneenenaam, Marin Rodriguez MD Unavailable Unavailable Vaneenenaam, Marin Rodriguez MD Unavailable Unavailable Vaneenenaam, Marin Rodriguez MD Unavailable Unavailable Vaneenenaam, Marin Rodriguez MD Unavailable Unavailable Vaneenenaam, Marin Rodriguez MD Unavailable Unavailable Vaneenenaam, Marin Rodriguez MD Unavailable Unavailable Vaneenenaam, Marin Rodriguez MD Unavailable Unavailable Vaneenenaam, Marin Rodriguez MD Unavailable Unavailable Vaneenenaam, Marin Rodriguez MD Unavailable Unavailable Vaneenenaam, Marin Rodriguez MD Unavailable Unavailable Vaneenenaam, Marin Rodriguez MD Unavailable Unavailable Vaneenenaam, Marin Rodriguez MD Unavailable Unavailable Vaneenenaam, Marin Rodriguez MD Unavailable Unavailable Vaneenenaam, Marin Rodriguez MD Unavailable Unavailable Vaneenenaam, Marin Rodriguez MD Unavailable Unavailable Vaneenenaam, Marin Rodriguez MD Unavailable Unavailable Vaneenenaam, Marin Rodriguez MD Unavailable Unavailable Vaneenenaam, Marin Rodriguez MD Unavailable Unavailable Vaneenenaam, Marin Rodriguez MD Unavailable Unavailable Vaneenenaam, Marin Rodriguez MD Unavailable Unavailable Re-disclosure Warning The records that you are about to access may contain information from federally-assisted alcohol or drug abuse programs. If such information is present, then the following federally mandated warning applies: This information has been disclosed to you from records protected by federal confidentiality rules (42 CFR part 2). The federal rules prohibit you from making any further disclosure of this information unless further disclosure is expressly permitted by the written consent of the person to whom it pertains or as otherwise permitted by 42 CFR part 2. A general authorization for the release of medical or other information is NOT sufficient for this purpose. The Federal rules restrict any use of the information to criminally investigate or prosecute any alcohol or drug abuse patient.The records that you are about to access may contain highly sensitive health information, the redisclosure of which is protected by Article 27-F of the [place] Public Health law. If you continue you may have access to information: Regarding HIV / AIDS; Provided by facilities licensed or operated by the [facility] Office of Mental Health; or Provided by the [facility] Office for People With Developmental Disabilities. If such information is present, then the following [facility] mandated warning applies: This information has been disclosed to you from confidential records which are protected by state law. State law prohibits you from making any further disclosure of this information without the specific written consent of the person to whom it pertains, or as otherwise permitted by law. Any unauthorized further disclosure in violation of state law may result in a fine or correction sentence or both. A general authorization for the release of medical or other information is NOT sufficient authorization for further disc losure. Allergies and Adverse Reactions Type Description Substance Reaction Status Data Source(s ) Propensity to adverse reactions PSEUDOEPHEDRINE-ACETAMINOPHE N Pseudoephedrine-Acetaminophen Active [facility] Propensity to adverse reactions AZITHROMYCIN Azithromycin Active [facility] Family History Family Member Name Family Member Gender Family Member Status Date o f Status Description Data Source(s) Unknown Male Problem [facility] ([facility] () Unknown Male Problem [facility] ([facility] ) Unknown Unknown Problem [facility] ([facility] ) Unknown Female Problem [facility] ([facility]) Unknown Female Problem [facility] ([facility]) Encounters Encounter Providers Location Date Indications Data Source(s ) Outpatient Attender: Jolene Stuart [facility] 10/04/2021 01:50:00 PM EST [facility] ([facility]) Outpatient Attender: Raquel Bullock/Ruben/Ike/Umair 10/01/2021 02:30:00 PM EST [facility] ([facility] ) OFFICE OUTPATIENT VISIT 15 MINUTES Attender: Marin mejia MD Physical Therapy 08/28/2021 03:00:00 PM EDT [facility] ([facility]) Outpatient Attender: LYNNE govea 07/14/2021 11:15:00 AM EDT [facility] ([facility]) Outpatient Referrer: Leon Colon MD [email or web address] 05/16 01:25:38 PM EDT - 05/27/2021 03:01:02 PM EDT [facility] Outpatient Attender: Leon Colon MDReferrer: Cisco GALOODELLRadhaSJPLandonODELL 05/14/2021 12:00:00 AM EDT [facility] Outpatient Attender: FREDO [id number] Ike Marino 03/15 07:45:00 AM EDT MEDENT ([facility] ) Outpatient Attender: Cisco Marino 03/01 08:30:00 AM EDT MED[facility] ([facility] ) Outpatient Attender: Alda kaufman 12/21/2020 03:45:00 PM EST [facility] ([facility]) Outpatient Attender: Cisco Marino 08/24 08:00:00 AM EDT MED[facility] ([facility] ) Outpatient Attender: Melany clementey 08/13/2020 06:35:00 PM EDT [facility] ([facility]) Immunizations Vaccine Date Status Description Data Source(s) New in 2011. IIV4 10/01/2020 02:31:00 PM EST completed MED[facility] ([facility]) Influenza, injectable, MDCK, preservative free, heather valent 08/24/2020 08:09:00 AM EDT completed [facility] ([facility]) Medications Medication Brand Name Start Date Product Form Dose Route Admi nistrative Instructions Pharmacy Instructions Status Indications Reaction Description Data Source(s) Nebulizer Kit/Tubing/Mouthpiece 10/01/2021 12:00:00 AM EST active [facility] ([facility]) Acetaminophen 325 MG / Hydrocodone Bitartrate 5 MG Ora l Tablet Hydrocodone Bitartrate/Acetaminophen 07/26/2021 12:00:00 AM EDT active [facility] ([facility]) Hydrochlorothiazide 12.5 MG / Losartan Potassium 100 M G Oral Tablet Losartan Potassium/Hydrochlorothiazide 07/26/2021 12:00:00 AM EDT ORAL active [facility] ([facility] ) Amoxicillin 875 MG / Clavulanate 125 MG Oral Tablet 87 5-125 mg AMOXICILLIN/POTASSIUM CLAV 07/14/2021 12:00:00 AM EDT tablet 20 1 TABLET BY MOUTH TWO TIMES A DAY FOR 10 DAYS 1 TABLET BY MOUTH TWO TIMES A DAY FOR 10 DAYS SOLD: 07/14/2021 [facility] Amoxicillin 875 MG / Clavulanate 125 MG Oral Tablet Am oxicillin/Clavulanate Potassium 07/14/2021 12:00:00 AM EDT ORAL completed [facility] ([facility]) Hydrochlorothiazide 12.5 MG / Losartan P otassium 100 MG Oral Tablet losartan- hydrochlorothiazide (HYZAAR) 100-12.5 MG per tablet losartan-hydrochlorothiazide (HYZAAR) 100-12.5 MG per tablet 05/14/2021 12:00:00 AM EDT 1 {tbl} O ral active Take 1 tablet by mouth daily [facility] Qvar RediHaler 80 MCG/ACT AERB 42508-771-87 04/05/2021 12:00:[address] [facility] 200 ACTUAT Albuterol 0.09 MG/ACTUAT [place] red Dose Inhaler [Ventolin] Ventolin HFA 108 (90 Base) MCG/ACT inhaler Ventolin HFA 108 (90 Base) MCG/ACT inhaler 03/05/2021 12:00:00 AM EDT active [facility] cetirizine hydrochloride 10 MG Oral Tablet cetirizine (ZyrTEC) 10 MG tablet cetirizine (ZyrTEC) 10 MG tablet 03/05/2021 12:00:00 AM EDT active [facility] pantoprazole 40 MG Delayed Release Oral Tablet pantoprazole (PROTONIX) 40 MG tablet pantoprazole (PROTONIX) 40 MG tablet 03/05/2021 12:00:[address] [facility] Losartan Potassium 50 MG Oral Tablet losartan (COZAAR) 50 MG tablet losartan (COZAAR) 50 MG tablet 03/05/2021 12:00:00 AM EDT a borted [facility] Albuterol 0.83 MG/ML Inhalant Solution a lbuterol (PROVENTIL) (2.5 MG/3ML) 0.083% nebulizer solution albuterol (PROVENTIL) (2.5 MG/3ML) 0.083 % nebulizer solution 03/05/2021 12:00:00 AM EDT active [facility] Losartan Potassium 50 MG Oral Tablet Losartan Potassium 12:00:00 AM EDT ORAL completed MED[facility] ([facility]) cetirizine hydrochloride 10 MG Oral Tablet [Zyrtec] Zyrtec A llergy 03/01/2021 12:00:00 AM EDT ORAL active M EDENT ([facility]) Acetaminophen 325 MG / Hydrocodone Markel trate 5 MG Oral Tablet HYDROcodone- acetaminophen (NORCO) 5-325 MG per tablet HYDROcodone-acetaminophen (NORCO) 5- 325 MG per tablet 03/01/2021 12:00:00 AM EDT active TAKE ONE TABLET BY MOUTH EVERY EIGHT HOURS as needed for pain MAX DAILY DOSE THREE [facility] Azelastine HCL (Nasal) Azelastine HCL (Nasal) 12/21/2020 12:00:[address] active [facility] ([facility]) Amoxicillin 875 MG / Clavulanate 125 MG Oral Tablet Am oxicillin/Clavulanate Potassium 12/21/2020 12:00:00 AM EST active [facility] ([facility]) doxycycline hyclate 100 MG Oral Tablet Doxycycline Hyclate 0 08/13/2020 12:00:00 AM EDT ORAL completed [facility] ([facility]) Diphenhydramine Hydrochloride 10 MG/ML / Zinc Acetate 1 MG/ML Topical Cream [Benadryl Itch Stopping] Benadryl Itch Stopping 08/13/2020 12:00:00 AM EDT completed [facility] ([facility]) Insurance Providers Payer name Policy type / Coverage type Policy ID Covered green party ID Covered green party's relationship to horan Policy Horan Plan Information [facility] Part B [id number] Family Dependent 5 [id number] [facility] Part B [id number] Family Dependent 5 [id number] [facility] Part B [id number] Family Dependent 5 [id number] [facility] B [id number] Family Dependent 5 [id number] [facility] Part B [id number] Family Dependent 5 [id number] [employer] 2018 Commercial [id number] Family Dependent [id number] [facility] HUMANA [id number] [employer] Commercial [id number] Family Dependent [id number] [employer] Commercial [id number] Family Dependent [id number] [employer] 2018 Commercial [id number] Family Dependent [id number] [place] [employer] DPT Commercial [id number] [facility] [id number] [facility] [id number] [facility] [id number] [facility] [id number] [employer] Standard Health Maintenance Organization (HMO) [id number] Family Dependent [id number] [place] [employer] [id number] Family Dependent [id number] Standard Commercial [id number] Family Dependent [id number] [employer] (2017) Health Maintenance Organization (HMO) [id number] Family Dependent [id number] [employer] Standard Health Maintenance Organization (HMO) [id number] Family Dependent [id number] [employer] [id number] Family Dependent [id number] [facility] [id number] [employer] Health Maintenance Organization (HMO) [id number] Family Dependent [id number] [employer] [id number] D[address] [id number] [facility] [place] [id number] O [id number] [employer] [id number] Family Dependent [id number] [employer] [id number] Family Dependent [id number] [employer] Standard Health Maintenance Organization (HMO) [id number] Family Dependent [id number] [employer] Standard Health Maintenance Organization (HMO) [id number] Family Dependent [id number] [employer] [id number] Family Dependent [id number] [facility] [id number] SP [id number] [employer] [id number] Family Dependent [employer] Standard Health Maintenance Organization (HMO) Family Dependent SELF PAY UNAVAILABLE SP UNAVAILA BLE [facility]ALTH[employer]/ AD O [id number] S [id number] [facility] [id number] SP [id number] [facility] O [id number] O [id number] [facility] Health [facility] Commercial [id number] Self [id number] [place] Commercial [id number] Family Dependent [id number] [facility] Commercial [id number] Self [id number] DO Not Use (Now #114) Commercial [id number] Family Dependent [id number] [facility] Commercial [id number] Family Dependent [id number] [facility] Commercial [id number] Family Dependent [id number] [facility] O [id number] S [id number] [employer] (2018) Health Maintenance Organization (HMO) [id number] Family Dependent [id number] [employer] Standard Health Maintenance Organization (HMO) [id number] Family Dependent [id number] DO Not Use (Now #114) Commercial [id number] Family Dependent [id number] [employer] (2017) Health Maintenance Organization (HMO) [id number] Family Dependent [id number] Problems, Conditions, and Diagnoses Code Display Name Description Problem Type Effective Dates Data Source(s) R07.9 Chest pain, unspecified Chest pain, unspecified Diagno sis 05/27/2021 01:25:38 PM EDT [facility] E66.01 Morbid obesity Morbid obesity [id number] 05/14/2021 12:00: 00 AM EDT [facility] I10 Essential hypertension Essential hypertension [id number] 05/14/2021 12:00:00 AM EDT [facility] R07.9 Chest pain Chest pain [id number] 05/13/2021 12:00:00 AM ED T [facility] Surgeries/Procedures Procedure Description Date Indications Data Source(s) OFFICE OUTPATIENT VISIT 25 MINUTES 10/04/2021 12:00:00 AM EST MED[facility] ([facility]) Spirometry 10/01/2021 12:00:00 AM EST M EDENT ([facility]) OFFICE OUTPATIENT VISIT 25 MINUTES 10/01/2021 12:00:00 AM EST MED[facility] ([facility]) Mammogram 09/06/2021 12:00:00 AM EDT M EDDEYANIRA ([facility]) RADIOLOGIC EXAMINATION KNEE 3 VIEWS 08/28/2021 12:00:0 0 AM EDT MEDENT ([facility]) OFFICE OUTPATIENT VISIT 15 MINUTES 08/28/2021 12:00:00 AM EDT MED[facility] ([facility]) RADIOLOGIC EXAMINATION KNEE 3 VIEWS 08/28/2021 12:00:0 0 AM EDT MEDENT ([facility]) OFFICE OUTPATIENT VISIT 25 MINUTES 07/14/2021 12:00:00 AM EDT [facility] ECG ROUTINE ECG W/LEAST 12 LDS W/I&R <td>POCT AMB EKG</td><td>Routine</td><td>05/14/2021 4:09 PM EDT</td><td> Chest pain, unspecified type</td><td> </td> 05/14/2021 04:09:00 PM EDT Chest pain, unspecified type [facility] Chest pain, unspecified type OFFICE OUTPATIENT VISIT 10 MINUTES 03/15/2021 12:00:00 AM EDT ELISE ([facility]) PERIODIC PREVENTIVE MED EST PATIENT 40-64YRS 12:00:00 AM EDT MEDDEYANIRA ([facility]) THYROID STIMULATING HORMONE TSH <td>TSH</td><td>Routine</td><td>02/21/2021</td><td></td><td> </td> 02/21/2021 12:00:00 AM EDT [facility] HEPATIC FUNCTION PANEL <td>HEPATIC FUNCTION PANEL</td><td>Routine</td><td>02/21/2021</td><td></td><td> </td> 02/21/2021 12:00:00 AM EDT [facility] LIPID PANEL <td>LIPID PANEL</td><td>Rout ine</td><td>02/21/2021</td><td></td><td> </td> 02/21/2021 12:00:00 AM EDT [facility] BASIC METABOLIC PANEL CALCIUM TOTAL <td>BASIC METABOLI C PANEL</td><td>Routine</td><td>02/21/2021</td><td></td><td> </td> 02/21/2021 12:00:00 AM EDT [facility] ECG ROUTINE ECG W/LEAST 12 LDS W/I&R 08/24/2020 12:00: 00 AM EDT MEDENT ([facility]) Mammogram 08/14/2020 12:00:00 AM EDT M EDENT ([facility]) Results ID Date Data Source [id number] 10/01/2021 03:25:00 PM EST MEDENT ([facility], ) Name Value Range Interpretation Code Description Data Juliana rce(s) Supporting Document(s) PDFReport Laboratory test result MEDENT ([facility], ) FVC-Pred 3.24 L MEDENT ([facility]) FVC-Pre 3.32 L [facility] ([facility]) FVC-%Pred-Pre 102 L MEDENT ([facility], ) Fev1-Pred 2.52 L [facility] ([facility]) FVC-LLN 2.56 L [facility] ([facility]) Fev1-Pre 2.90 L [facility] ([facility]) Fev1-LLN 1.95 L [facility] ([facility]) Fev1-%Pred-Pre 115 L MEDENT ([facility]) Fev6-Pre 3.32 L [facility] ([facility]) Fev6-Pred 3.13 L MEDENT ([facility], ) Fev6-%Pred-Pre 105 L MEDENT ([facility], ) Fev6-LLN 2.47 L MED[facility] ([facility], ) Gsj1azx-%Pred-Pre 111 % MEDENT ([facility]) Ave0opk-Hhf 88 % MEDENT ([facility]) Spi3glr-Jwdu 78 % MED[facility] ([facility]) Xfm2tdq-Rhux 97 % MED[facility] ([facility]) Pme1fot-JFI 69 % [facility] ([facility]) Gxo9gsa-Mkt 100 % [facility] ([facility]) Mfn2vag-%Pred-Pre 103 % [facility] ([facility]) FEFMax-Pred 6.25 L/E/sec MED[facility] ([facility]) FEFMax-Pre 4.99 L/E/sec MED[facility] ([facility]) FEFMax-%Pred-Pre 79 L/E/sec [facility] ([facility]) FEFMax-LLN 4.58 L/E/sec [facility] ([facility]) Vnb1849-Jggr 2.38 L/E/sec [facility] ([facility]) Kkl8751-Trp 3.96 L/E/sec MED[facility] ([facility]) Aup6026-%Pred-Pre 166 L/E/sec MEDENT ([facility]) Thf7000-PTK 1.18 L/E/sec MED[facility] ([facility]) Dye1wns2-Jsol 81 % MED[facility] ([facility]) ExpTime-Pre 6.25 sec MEDENT ([facility]) Cjf3yci5-%Pred-Pre 108 % MED[facility] ([facility]) Kdm0pgk2-Eye 88 % [facility] ([facility]) Pzt1ltj8-ZUR 72 % [facility] ([facility]) ID Date Data Source [id number] 09/10/2021 08:47:00 AM EDT MEDENT ([facility]) Name Value Range Interpretation Code Description Data Juliana rce(s) Supporting Document(s) Cholesterol [Mass/volume] in Serum or Plasma 185 mg/dL 131-200 MED[facility] ([facility]) Triglyceride [Mass/volume] in Serum or Plasma 231 mg/dL 30-150 [facility] ([facility]) Cholesterol in HDL [Mass/volume] in Serum or Plasma 39 mg/dL 35-60 [facility] ([facility]) Cholesterol in LDL [Mass/volume] in Serum or Plasma by calcu lation 100 CALC 50-159 [facility] ([facility]) ID Date Data Source [id number] 09/10/2021 08:47:00 AM EDT MEDENT ([facility]) Name Value Range Interpretation Code Description Data Juliana rce(s) Supporting Document(s) Glucose [Mass/volume] in Serum or Plasma 100 mg/dL 74-99 MED[facility] ([facility]) 100-125 mg/dL PRE-DIABETES/FASTING >126 mg/dL DIABETES/FASTING Urea nitrogen [Mass/volume] in Serum or Plasma 20 mg/dL 7-18 [facility] ([facility]) Creatinine 0.8 mg/dL 0.6-1.3 [facility] Potassium [Moles/volume] in Serum or Plasma 4.0 meq/L 3.5-5.1 [facility] ([facility]) Sodium [Moles/volume] in Serum or Plasma 138 meq/L 136-145 [facility] ([facility]) Chloride [Moles/volume] in Serum or Plasma 100 meq/L 98-107 [facility] ([facility]) Carbon dioxide, total [Moles/volume] in Serum or Plasma 31 meq/L 21 -32 [facility] ([facility]) Calcium [Mass/volume] in Serum or Plasma 9.6 mg/dL 8.5-10.1 [facility] ([facility]) Alkaline phosphatase isoenzyme [Units/volume] in Serum or Pl asma 37 mg/dL 46-116 [facility] ([facility]) Aspartate aminotransferase [Enzymatic activity/volume] in Serum or Plasma 16 U/L 15-37 [facility] ([facility] ) Total Bilirubin 0.5 mg/dL 0.2-1.0 MED[facility] ([facility]) Alanine aminotransferase [Enzymatic activity/volume] in Seru m or Plasma 29 U/L 12-78 [facility] ([facility]) Albumin [Mass/volume] in Serum or Plasma 3.8 g/dL 3.4-5.0 [facility] A/G Ratio 1.09 CALC 1.00-1.90 [facility] Glomerular filtration rate/1.73 sq M pre dicted among non-blacks [Volume Rate/Area] in Serum or Plasma by Creatinine-based formula (MDRD) Laboratory test result [facility] Proteinase 3 Ab [Units/volume] in Serum 7.3 g/dL 6.4-8.2 [facility] Glomerular filtration rate/1.73 sq M pre dicted among blacks [Volume Rate/Area] in Serum or Plasma by Creatinine-based formula (MDRD) Laboratory test result [facility] ([facility] <content>CHRONIC KIDNEY DISEASE STAGING PER NKF</content>
<content></content>
<content>STAGE I & II GFR >= 60 NORMAL TO MILDLY DECREASED</content>
<content>STAGE III GFR 30-59 MODERATELY DECREASED</content>
<content>STAGE IV GFR 15-29 SEVERELY DECREASED</content>
<content>STAGE V GFR <15 VERY LITTLE GFR LEFT</content>
<content>ESRD GFR <15 ON BRAZER CRAWLER TORCH</content>
<content></content> ID Date Data Source [id number] 03/01/2021 09:50:00 AM EDT [facility] Name Value Range Interpretation Code Description Data Juliana rce(s) Supporting Document(s) Rheumatoid Factor Quant Laboratory test result [facility] ID Date Data Source [id number] 03/01/2021 09:50:00 AM EDT [facility] Name Value Range Interpretation Code Description Data Juliana rce(s) Supporting Document(s) Anti Double Strand-Dna AB Laboratory test result 0-9 MEDENT ([facility]) <content>Negative <5</content>
<content>Equivocal 5 - 9</content>
<content>Positive >9</content>
<content></content> Antinuclear Antibodies Direct Laboratory test result Abnormal (applies to non- numeric results) MED[facility] ([facility]) POWER MACHINE OPERATOR Antibodies 1.1 AI 0.0-0.9 [facility] ([facility]) Sjogren's Anti SS-A Laboratory test result 0.0-0.9 [facility] ([facility]) Ryan Antibodies Laboratory test result 0.0-0.9 [facility] ([facility]) Sjogren's Anti SS-B Laboratory test result 0.0-0.9 [facility] ([facility]) Tracey Comment Laboratory test result MEDEN T ([facility]) . Autoantibody Disease Association Condition Frequency -------- [...] (anti-Ryan) SLE 15 - 30% ------- --------- POWER MACHINE OPERATOR Mixed Connective Tissue Disease 95% (U1 nRNP, SLE 30 - 50% anti-ribonucleoprotein) Polymyositis and/or Dermatomyositis 20% -------- --------- Scl-70 (antiDNA Scleroderma (diffuse) 20 - 35% topoisomerase) Crest 13% -------- --------- Rossana-1 Polymyositis and/or Dermatomyositis 20 - 40% -------- --------- Centromere B Scleroderma - Crest variant 80% Performed at: [facility] [id number] [id number] Certified Welder: Carissa Tipton MD, Phone: [phone] ID Date Data Source [id number] 03/01/2021 09:50:00 AM EDT [facility] ([facility]) Name Value Range Interpretation Code Description Data Juliana rce(s) Supporting Document(s) C reactive protein [Mass/volume] in Serum or Plasma by High sensitivity method 0.41 mg/dL 0.00-0.30 [facility] ([facility] ) ID Date Data Source [id number] 03/01/2021 09:48:00 AM EDT [facility] ([facility]) Name Value Range Interpretation Code Description Data Juliana rce(s) Supporting Document(s) Erythrocyte sedimentation rate by Westergren method 13 mm/hr 0-15 [facility] ([facility]) ID Date Data Source [id number] 02/21/2021 07:40:00 AM EDT [facility] ([facility]) Name Value Range Interpretation Code Description Data Juliana rce(s) Supporting Document(s) Thyrotropin [Units/volume] in Serum or Plasma by Detec tion limit <= 0.05 mIU/L 2.36 uIU/mL 0.36-3.74 [facility] ID Date Data Source [id number] 02/21/2021 07:40:00 AM EDT [facility] ([facility]) Name Value Range Interpretation Code Description Data Juliana rce(s) Supporting Document(s) Cholesterol [Mass/volume] in Serum or Plasma 183 mg/dL 131-200 [facility] ([facility]) Triglyceride [Mass/volume] in Serum or Plasma 256 mg/dL 30-150 [facility] ([facility]) Cholesterol in HDL [Mass/volume] in Serum or Plasma 47 mg/dL 35-60 [facility] ([facility]) Cholesterol in LDL [Mass/volume] in Serum or Plasma by calcu lation 85 CALC 50-159 [facility] ([facility]) ID Date Data Source [id number] 02/21/2021 07:40:00 AM EDT [facility] ([facility]) Name Value Range Interpretation Code Description Data Juliana rce(s) Supporting Document(s) Glucose [Mass/volume] in Serum or Plasma 99 mg/dL 74-99 [facility] ([facility]) 100-125 mg/dL PRE-DIABETES/FASTING >126 mg/dL DIABETES/FASTING Urea nitrogen [Mass/volume] in Serum or Plasma 16 mg/dL 7-18 [facility] ([facility]) Creatinine 0.9 mg/dL 0.6-1.3 [facility] Sodium [Moles/volume] in Serum or Plasma 138 meq/L 136-145 [facility] ([facility]) Potassium [Moles/volume] in Serum or Plasma 4.5 meq/L 3.5-5.1 [facility] ([facility]) Chloride [Moles/volume] in Serum or Plasma 103 meq/L 98-107 [facility] ([facility]) Calcium [Mass/volume] in Serum or Plasma 9.0 mg/dL 8.5-10.1 [facility] ([facility]) Carbon dioxide, total [Moles/volume] in Serum or Plasma 28 meq/L 21 -32 [facility] ([facility]) Alkaline phosphatase isoenzyme [Units/volume] in Serum or Pl asma 39 mg/dL 46-116 [facility] ([facility]) Total Bilirubin 0.4 mg/dL 0.2-1.0 [facility] ([facility]) Aspartate aminotransferase [Enzymatic activity/volume] in Serum or Plasma 16 U/L 15-37 [facility] ([facility] ) Alanine aminotransferase [Enzymatic activity/volume] in Seru m or Plasma 32 U/L 12-78 [facility] ([facility]) Albumin [Mass/volume] in Serum or Plasma 4.1 g/dL 3.4-5.0 [facility] ([facility]) Proteinase 3 Ab [Units/volume] in Serum 7.6 g/dL 6.4-8.2 [facility] ([facility]) Glomerular filtration rate/1.73 sq M pre dicted among non-blacks [Volume Rate/Area] in Serum or Plasma by Creatinine-based formula (MDRD) Laboratory test result [facility] ([facility] A/G Ratio 1.17 CALC 1.00-1.90 [facility]) Glomerular filtration rate/1.73 sq M pre dicted among blacks [Volume Rate/Area] in Serum or Plasma by Creatinine-based formula (MDRD) Laboratory test result [facility] ([facility]) <content>CHRONIC KIDNEY DISEASE STAGING PER NKF</content>
<content></content>
<content>STAGE I & II GFR >= 60 NORMAL TO MILDLY DECREASED</content>
<content>STAGE III GFR 30-59 MODERATELY DECREASED</content>
<content>STAGE IV GFR 15-29 SEVERELY DECREASED</content>
<content>STAGE V GFR <15 VERY LITTLE GFR LEFT</content>
<content>ESRD GFR <15 ON BRAZER CRAWLER TORCH</content>
<content></content> ID Date Data Source [id number] 08/23/2020 07:51:00 AM EDT [facility] ([facility]) Name Value Range Interpretation Code Description Data Juliana rce(s) Supporting Document(s) Urea nitrogen [Mass/volume] in Serum or Plasma 15 mg/dL 7-18 [facility] ([facility]) Glucose [Mass/volume] in Serum or Plasma 99 mg/dL 74-99 [facility] ([facility]) 100-125 mg/dL PRE-DIABETES/FASTING >126 mg/dL DIABETES/FASTING Creatinine 0.9 mg/dL 0.6-1.3 [facility] Potassium [Moles/volume] in Serum or Plasma 4.4 meq/L 3.5-5.1 [facility] ([facility]) Chloride [Moles/volume] in Serum or Plasma 106 meq/L 98-107 [facility] ([facility]) Sodium [Moles/volume] in Serum or Plasma 142 meq/L 136-145 [facility] ([facility]) Glomerular filtration rate/1.73 sq M pre dicted among non-blacks [Volume Rate/Area] in Serum or Plasma by Creatinine-based formula (MDRD) Laboratory test result [facility] ([facility] ) Carbon dioxide, total [Moles/volume] in Serum or Plasma 30 meq/L 21 -32 [facility] ([facility]) Calcium [Mass/volume] in Serum or Plasma 8.8 mg/dL 8.5-10.1 [facility] ([facility]) Glomerular filtration rate/1.73 sq M pre dicted among blacks [Volume Rate/Area] in Serum or Plasma by Creatinine-based formula (MDRD) Laboratory test result [facility] ([facility]) <content>CHRONIC KIDNEY DISEASE STAGING PER NKF</content>
<content></content>
<content>STAGE I & II GFR >= 60 NORMAL TO MILDLY DECREASED</content>
<content>STAGE III GFR 30-59 MODERATELY DECREASED</content>
<content>STAGE IV GFR 15-29 SEVERELY DECREASED</content>
<content>STAGE V GFR <15 VERY LITTLE GFR LEFT</content>
<content>ESRD GFR <15 ON BRAZER CRAWLER TORCH</content>
<content></content> Procedure Social History Code Duration Value Status Description Data Source(s ) Smoking 10/04/2021 12:00:00 AM EST Patient is a former smoker completed Patient is a former smoker [facility] ([facility], [facility]) Smoking 10/01/2021 12:00:00 AM EST Patient is a former smoker completed Patient is a former smoker [facility] ([facility], ) Smoking 08/28/2021 12:00:00 AM EDT Patient is a former smoker completed Patient is a former smoker [facility] ([facility]) Alcohol intake 05/14/2021 12:00:00 AM EDT Ex-drinker (finding) comp leted Ex- drinker (finding) [facility] Tobacco use and exposure 05/14/2021 12:00:00 AM EDT Never used co mpleted Never used [facility] Smoking 05/14/2021 12:00:00 AM EDT Former smoker completed Former smoker [facility] Vital Signs ID Date Data Source UNK Name Value Range Interpretation Code Description Data Source(s) Systolic blood pressure 125 mm[Hg] 125 mm[Hg] [facility]) Diastolic blood pressure 83 mm[Hg] 83 mm[Hg] [facility] ([facility], [facility]) Heart rate 83 /min 83 /min [facility] ([facility], [facility]) Respiratory rate 18 /min 18 /min [facility] ( [facility], [facility]) Oxygen saturation in Arterial blood by Pulse oximetry 98 % 98 % [facility] ([facility], [facility]) Body temperature 101.9 [degF] 101.9 [degF] MEDE NT ([facility], [facility]) Body weight 262.00 [lb_av] 262.00 [lb_av] MEDEN T ([facility], [facility]) Body height 62 [in_i] 62 [in_i] [facility] ([facility], [facility]) 5'2" Body mass index (BMI) [Ratio] 47.9 kg/m2 47.9 k g/m2 [facility] ([facility]) Systolic blood pressure 142 mm[Hg] 142 mm[Hg] EDENT ([facility], ) Diastolic blood pressure 84 mm[Hg] 84 mm[Hg] [facility] ([facility]) Heart rate 102 /min 102 /min [facility] ([facility]) Oxygen saturation in Arterial blood by Pulse oximetry 97 % 97 % [facility] ([facility]) Respiratory rate 20 /min 20 /min [facility] ( [facility]) Body height 63 [in_i] 63 [in_i] [facility] ([facility]) 5'3" Body weight 265.00 [lb_av] 265.00 [lb_av] MEDEN T ([facility]) Body mass index (BMI) [Ratio] 46.9 kg/m2 46.9 k g/m2 [facility] [place] body weight 115 [lb_av] 115 [lb_av] MEDEN T ([facility]) Body weight 120.204 kg 120.204 kg [facility] ([facility]) Body surface area Derived from formula 2.18 m2 2.18 m2 [facility] ([facility]) Heart rate 68 /min 68 /min [facility] ([facility]) Body weight 262.00 [lb_av] 262.00 [lb_av] MEDEN T ([facility]) Body mass index (BMI) [Ratio] 47.9 kg/m2 47.9 k g/m2 [facility] ([facility]) Body height 62 [in_i] 62 [in_i] [facility] ([facility]) 5'2" Respiratory rate 80 /min 80 /min [facility] ( [facility]) Systolic blood pressure 122 mm[Hg] 122 mm[Hg] [facility]) Diastolic blood pressure 70 mm[Hg] 70 mm[Hg] [facility] ([facility]) Diastolic blood pressure 95 mm[Hg] 95 mm[Hg] [facility] ([facility], [facility]) Systolic blood pressure 159 mm[Hg] 159 mm[Hg] [facility], [facility]) Body weight 267.00 [lb_av] 267.00 [lb_av] MEDEN T ([facility], [facility]) Body height 62 [in_i] 62 [in_i] [facility] ([facility], [facility]) 5'2" Body mass index (BMI) [Ratio] 48.8 kg/m2 48.8 k g/m2 [facility] ([facility], [facility]) Heart rate 89 /min 89 /min [facility] ([facility], [facility]) Respiratory rate 20 /min 20 /min [facility] ( [facility], [facility]) Oxygen saturation in Arterial blood by Pulse oximetry 98 % 98 % [facility] ([facility], [facility]) Body temperature 97.1 [degF] 97.1 [degF] [facility] ([facility], [facility]) Systolic blood pressure 160 mm[Hg] 160 mm[Hg] [facility] Diastolic blood pressure 90 mm[Hg] 90 mm[Hg] [facility] Heart rate 70 /min 70 /min [facility] Body height 157.5 cm 157.5 cm [facility] Body weight 123.832 kg 123.832 kg [facility] Body mass index (BMI) [Ratio] 49.93 kg/m2 49.93 kg/m2 [facility] Oxygen saturation in Arterial blood by Pulse oximetry 98 % 98 % [facility] Systolic blood pressure 136 mm[Hg] 136 mm[Hg] M EDENT ([facility]) jw Diastolic blood pressure 80 mm[Hg] 80 mm[Hg] [facility] ([facility]) jw Diastolic blood pressure 86 mm[Hg] 86 mm[Hg] [facility] ([facility]) Systolic blood pressure 142 mm[Hg] 142 mm[Hg] [facility] ([facility]) Systolic blood pressure 150 mm[Hg] 150 mm[Hg] [facility]) Diastolic blood pressure 98 mm[Hg] 98 mm[Hg] [facility] ([facility]) Heart rate 80 /min 80 /min [facility] [facility] ([facility]) Body height 62 [in_i] 62 [in_i] [facility] ([facility]) 5'2" Body weight 271.00 [lb_av] 271.00 [lb_av] [facility] ([facility]) Oxygen saturation in Arterial blood by Pulse oximetry 98 % 98 % [facility] ([facility]) Body mass index (BMI) [Ratio] 49.6 kg/m2 49.6 k g/m2 [facility] ([facility]) Body height 62 [in_i] 62 [in_i] [facility] ([facility], [facility]) 5'2" Body mass index (BMI) [Ratio] 50.3 kg/m2 50.3 k g/m2 [facility] ([facility], [facility]) Body temperature 96.9 [degF] 96.9 [degF] [facility] ([facility], [facility]) Systolic blood pressure 170 mm[Hg] 170 mm[Hg] [facility] ([facility], [facility]) Diastolic blood pressure 100 mm[Hg] 100 mm[Hg] [facility] ([facility], [facility]) Heart rate 89 /min 89 /min [facility] ([facility], [facility]) Respiratory rate 16 /min 16 /min [facility] ( [facility], [facility]) Oxygen saturation in Arterial blood by Pulse oximetry 97 % 97 % [facility] ([facility] Body weight 275.00 [lb_av] 275.00 [lb_av] [facility] ([facility]) Heart rate 77 /min 77 /min [facility] ([facility]) Body weight 270.00 [lb_av] 270.00 [lb_av] [facility] ([facility]) Body mass index (BMI) [Ratio] 47.8 kg/m2 47.8 k g/m2 [facility] ([facility]) [place] body weight 115 [lb_av] 115 [lb_av] [facility] ([facility]) Body weight 122.472 kg 122.472 kg [facility] ([facility]) Body surface area Derived from formula 2.20 m2 2.20 m2 [facility] ([facility]) Oxygen saturation in Arterial blood by Pulse oximetry 98 % 98 % [facility] ([facility]) Body height 63 [in_i] 63 [in_i] [facility] ([facility]) 5'3" Systolic blood pressure 124 mm[Hg] 124 mm[Hg] M [facility] ([facility]) Diastolic blood pressure 82 mm[Hg] 82 mm[Hg] [facility] ([facility]) Diastolic blood pressure 80 mm[Hg] 80 mm[Hg] [facility] ([facility]) Body weight 267.00 [lb_av] 267.00 [lb_av] [facility] ([facility]) Systolic blood pressure 138 mm[Hg] 138 mm[Hg] M [facility] ([facility]) Heart rate 76 /min 76 /min [facility] ([facility]) Body height 62 [in_i] 62 [in_i] [facility] ([facility]) 5'2" Body mass index (BMI) [Ratio] 48.8 kg/m2 48.8 k g/m2 [facility] ([facility]) Body temperature 98.4 [degF] 98.4 [degF] [facility] ([facility]) Body weight 260.00 [lb_av] 260.00 [lb_av] [facility] ([facility]) Systolic blood pressure 154 mm[Hg] 154 mm[Hg] M [facility] ([facility]) Diastolic blood pressure 107 mm[Hg] 107 mm[Hg] [facility] ([facility]) Heart rate 76 /min 76 /min [facility] ([facility]) Respiratory rate 16 /min 16 /min [facility] ( [facility]) Oxygen saturation in Arterial blood by Pulse oximetry 98 % 98 % [facility] ([facility]) Body height 62 [in_i] 62 [in_i] [facility] ([facility]) 5'2" Body mass index (BMI) [Ratio] 47.5 kg/m2 47.5 k g/m2 [facility] ([facility]) Patient Treatment Plan of Care Planned Activity Planned Date Details Description Data Source (s) Hydrochlorothiazide 12.5 MG / Losartan Potassium 100 M G Oral Tablet 05/14/2021 12:00:00 AM EDT [facility] Qvar RediHaler 80 MCG/ACT AERB 04/05/2021 12:00:00 AM EDT [facility] Albuterol 0.83 MG/ML Inhalant Solution 03/05/2021 12:00:00 AM EDT [facility] Losartan Potassium 50 MG Oral Tablet 03/05/2021 12:00:00 AM EDT [facility] pantoprazole 40 MG Delayed Release Oral Tablet 03/05/2021 12:00:00 AM EDT [facility] cetirizine hydrochloride 10 MG Oral Tablet 03/05/2021 12:00:00 AM E DT [facility] 200 ACTUAT Albuterol 0.09 MG/ACTUAT Metered Dose Inhal er [Ventolin] 03/05/2021 12:00:00 AM EDT [facility] Acetaminophen 325 MG / Hydrocodone Bitartrate 5 MG Ora l Tablet 03/01/2021 12:00:00 AM EDT [facility]
--- OUTSIDE RECORDS SUMMARY | 2021-10-12 13:30 | CCD | Continuity of Care Document ---
Author Author Lynnette SEGURA MD Organization Unknown Address [address] [place] [address], [address] [place] [address] Phone [phone] Care Team Providers Care Channel Rougher Name Role Phone Cisco Florence MD [facility] [phone] Problems Active Problems Provider Date Essential hypertension [...] Available Procedures Date Code Description Status 08/28/2021 89503 X-Ray Knee Ap & Lateral W/Obliqu es Three Views Completed 08/28/2021 36101 X-Ray Knee Ap & Lateral W/Obliqu es [...]
--- OUTSIDE RECORDS SUMMARY | 2021-10-12 13:30 | CCD | Continuity of Care Document ---
Author Author Lynnette FLORENCE M.D. Organization Unknown Address [address] [facility] [address] [place] [address] Phone [phone] Care Team Providers Care Principal Planner Name Role Phone Cisco Florence MD [facility] [phone] Problems Active Problems Provider Date Hypertensive disorder [...] CPT Code Status Date Vaccine Lot # [id number] Given 09/16/2010 Influenza Virus Vaccine 43719 Given 09/16/2010 Influenza Virus Vaccine 43252 Given 05/16/2010 Adacel- Tetanus Diphtheria P ertussis (Age64 & Under) 09681 Refused 08/24/2020 Influenza Vaccin e Quadrivalent Preser/Antibiotic Free Im Use 27512 Refused 08/07/2014 Influenza Virus Vaccine 66013 Refused 02/01/2014 Zoster Vaccine 53743 Refused 07/28/2013 Influenza Virus Vaccine 01625 Refused 08/18/2012 Influenza Virus Vaccine Vital Signs [...] H/L Range Note Laboratory test finding 03/01/[address] [address] [phone] C Reactive Protein Quantitativ 0.41 mg/dL High 0 .00-0.30 Antinuclear Antibodies 03/01/[address] [address] [phone] Antinuclear Antibodies Direct Positive Abnormal Ne gative Anti Double Strand-Dna AB <1 IU/mL Normal 0-9 1 JERSEY KNITTER Antibodies 1.1 AI High 0.0-0.9 Ryan Antibodies <0.2 AI Normal 0.0-0.9 Sjogren's Anti SS-A <0.2 AI Normal 0.0-0.9 Sjogren's Anti SS-B <0.2 AI Normal 0.0-0.9 Tracey Comment (SEE NOTE) Normal . 2 Laboratory test finding 03/01/[address] [address] [phone] Rheumatoid Factor Quant < 10.0 IU/mL Normal <15.0 Laboratory test finding 03/01/2021 [facility] Supervisor [employer]: [place] [address] [phone] Sed Rate 13 mm/hr 0 - 15 Comprehensive Chem Profile 02/21/2021 [facility] Supervisor [employer]: [place] [address] [phone] Glucose 99 mg/dL 74 - 99 3 [...] 60 mL/min >60 4 Lipid Profile 02/21/2021 [facility] , Supervisor [employer]: Dr Migue Ramires [place], [place] [id number] [phone] Cholesterol 183 mg/dL 131 - 200 Triglycerides 256 mg/dL High 30 - 150 HDL Cholesterol 47 mg/dL 35 - 60 LDL (Calculated) 85 CALC 50 - 159 Laboratory test finding 02/21/2021 [facility], Supervisor [place]: [place] [address] [phone] Thyroid Stimulating Hormone 2.36 uIU/mL 0.3 6 [...] (anti-Ryan) SLE 15 - 30% ------- --------- JERSEY KNITTER Mixed Connective Tissue Disease 95% (U1 nRNP, SLE 30 - 50% anti-ribonucleoprotein) Polymyositis and/or Dermatomyositis 20% -------- --------- Scl-70 (antiDNA Scleroderma (diffuse) 20 - 35% topoisomerase) Crest 13% -------- --------- Rossana-1 Polymyositis and/or Dermatomyositis 20 - 40% -------- --------- Centromere B Scleroderma - Crest variant 80% Performed at: RN - [facility] [address] [id number] Supervisor [employer]: Carissa Tipton MD, Phone: [phone] 3 100-125 mg/dL PRE-DIABET ES/FASTING >126 mg/dL DIABETES/FASTING 4 CHRONIC KIDNEY DISEASE STAGI NG PER NKF STAGE I & II GFR >= 60 NORMAL TO MILDLY DECREASED STAGE III GFR 30-59 MODERATELY DECREASED STAGE IV GFR 15-29 SEVERELY DECREASED STAGE V GFR <15 VERY LITTLE GFR LEFT ESRD GFR <15 ON MEMBERSHIP COUNSELOR Procedures Date Code Description Status 03/15/2021 76925 Office/Outpatient Established SF MDM 10-19 Min Completed 03/01/2021 76182 Est Prevent Med (40-64Yrs) Compl eted 08/14/2020 [id number] Mammogram Completed 07/26/2019 [id number] Mammogram Completed 07/08/2017 [id number] Mammogram Completed 06/11/2016 [id number] Mammogram Completed 05/23/2015 [id number] Mammogram Completed 03/24/2013 [id number] Colonoscopy Completed 03/24/2012 [id number] Diabetic Retinal Eye Exam Comple [employer] Description No Information Available Encounters Type Date Location Provider Dx Diagnosis Office Visit 03/15/2021 7:45a [facility] Nurse Sched missael M54.5 Low back pain I10 Essential (primary) hyperten cipriano R76.0 Raised antibody titer Office Visit 03/01/2021 8:30a [facility] Cisco Florence M.D. Z00.00 Encntr [...] 02/21/2021 K21.9 Gastro-esophageal reflux disease without esophagitis Csico Florence M.D. 02/21/2021 K21.9 Gastro-esophageal reflux disease without esophagitis Lab Schedule 02/21/2021 E78.1 Pure hyperglyceridemia Cisco Florence M.D. 02/21/2021 E78.1 Pure hyperglyceridemia Lab Sched missael Plan of Treatment Future Appointment(s):* 09/10/2021 8:50 am - Lab Schedule at [facility] * 09/12/2021 8:00 am - Cisco Florence M.D. at [facility] 03/01/2021 - Cisco Florence M.D.* [...] discussed the importance of following up with Cooler Conveyor Loader in detail. Her last mammogram was done [...] and is in counseling with her new center medical director's .6. Moderate persistent asthma: Stable on current [...] symptoms. She will follow up with her Cooler Conveyor Loader specialist appropriately. I am going to see her again in 6 months with CMP and lipids. If she has new problems or issues sooner she will let us know. Functional Status Description No Information Available Mental Status Description No Information Available Referrals Refer to Reason for Referral Status Appt Date Leon Colon CARDIOLOGY CONSULT FOR CHEST PAIN Patient Notif ied 05/14/2021 [facility] [address] , [place] [address] [phone]
--- OUTSIDE RECORDS SUMMARY | 2021-10-12 13:30 | CCD | Continuity of Care Document ---
Author Author Lab Schedule, Lynnette Organization Unknown Address [address] [address] Phone Unavailable Care Team Providers Care Musical Instruments Assembler Name Role Phone Cisco Florence MD [facility] [phone] Problems Active Problems Provider Date Hypertensive disorder [...] CPT Code Status Date Vaccine Lot # [id number] Given 09/16/2010 Influenza Virus Vaccine 52669 Given 09/16/2010 Influenza Virus Vaccine 42654 Given 05/16/2010 Adacel- Tetanus Diphtheria P ertussis 47620 Refused 08/24/2020 Influenza Vaccin e Quadrivalent Preser/Antibiotic Free Im Use 71476 Refused 08/07/2014 Influenza Virus Vaccine 04483 Refused 02/01/2014 Zoster Vaccine 01094 Refused 07/28/2013 Influenza Virus Vaccine 48874 Refused 08/18/2012 Influenza Virus Vaccine Vital Signs [...] Available Procedures Date Code Description Status 09/06/2021 [id number] Mammogram Completed 03/15/2021 69049 Office/Outpatient Established SF MDM 10-19 Min Completed 08/14/2020 [id number] Mammogram Completed 07/26/2019 [id number] Mammogram Completed 07/08/2017 [id number] Mammogram Completed 06/11/2016 [id number] Mammogram Completed 05/23/2015 [id number] Mammogram Completed 03/24/2013 [id number] Colonoscopy Completed 03/24/2012 [id number] Diabetic Retinal Eye Exam Comple [employer] Description No Information Available Encounters Type Date Location Provider Dx Diagnosis Office Visit 03/15/2021 7:45a [facility] Nurse Je canas M54.5 Low [...] 8:00 am - Cisco Florence M.D. at [facility] 03/01/2021 - Cisco Florence M.D.* [...] discussed the importance of following up with Circuit Tester in detail. Her last mammogram was done [...] and is in counseling with her new site worker's .6. Moderate persistent asthma: Stable on current [...] symptoms. She will follow up with her Circuit Tester specialist appropriately. I am going to see her again in 6 months with CMP and lipids. If she has new problems or issues sooner she will let us know. Functional Status Description No Information Available Mental Status Description No Information Available Referrals Description No Information Available
[2021-10-12 13:39] LABS: D-DIMER QUANT > 4000 ng/ml (<500)
--- OUTSIDE RECORDS SUMMARY | 2021-10-12 14:15 | CCD ---
Author Author [facility] Organization [facility] Address Unknown Phone Unavailable Care Team Providers Care Cloth Finisher Name Role Phone Pope, Jolene CARDIAC EXERCISE PHYSIOLOGIST Unavailable Unavailable Pope, Jolene CARDIAC EXERCISE PHYSIOLOGIST Unavailable Unavailable Pope, Jolene CARDIAC EXERCISE PHYSIOLOGIST Unavailable Unavailable Pope, Jolene CARDIAC EXERCISE PHYSIOLOGIST Unavailable Unavailable Pope, Jolene CARDIAC EXERCISE PHYSIOLOGIST Unavailable Unavailable Pope, Jolene CARDIAC EXERCISE PHYSIOLOGIST Unavailable Unavailable Pope, Jolene CARDIAC EXERCISE PHYSIOLOGIST Unavailable Unavailable Pope, Jolene CARDIAC EXERCISE PHYSIOLOGIST Unavailable Unavailable Pope, Jolene CARDIAC EXERCISE PHYSIOLOGIST Unavailable Unavailable Pope, Jolene CARDIAC EXERCISE PHYSIOLOGIST Unavailable Unavailable Pope, Jolene CARDIAC EXERCISE PHYSIOLOGIST Unavailable Unavailable Pope, Jolene CARDIAC EXERCISE PHYSIOLOGIST Unavailable Unavailable Pope, Jolene CARDIAC EXERCISE PHYSIOLOGIST Unavailable Unavailable Hiral, L Raquel CARDIAC EXERCISE PHYSIOLOGIST Unavailable Unavailable Hiral, L Raquel CARDIAC EXERCISE PHYSIOLOGIST Unavailable Unavailable Hiral, L Raquel CARDIAC EXERCISE PHYSIOLOGIST Unavailable Unavailable Hiral, L Raquel CARDIAC EXERCISE PHYSIOLOGIST Unavailable Unavailable Hiral, L Raquel CARDIAC EXERCISE PHYSIOLOGIST Unavailable Unavailable Hiral, L Raquel CARDIAC EXERCISE PHYSIOLOGIST Unavailable Unavailable Hiral, L Raquel CARDIAC EXERCISE PHYSIOLOGIST Unavailable Unavailable Hiral, L Raquel CARDIAC EXERCISE PHYSIOLOGIST Unavailable Unavailable Hiral, L Raquel CARDIAC EXERCISE PHYSIOLOGIST Unavailable Unavailable Hiral, L Raquel CARDIAC EXERCISE PHYSIOLOGIST Unavailable Unavailable Hiral, L Raquel CARDIAC EXERCISE PHYSIOLOGIST Unavailable Unavailable Hiral, L Raquel CARDIAC EXERCISE PHYSIOLOGIST Unavailable Unavailable Hiral, L Raquel CARDIAC EXERCISE PHYSIOLOGIST Unavailable Unavailable Hiral, L Raquel CARDIAC EXERCISE PHYSIOLOGIST Unavailable Unavailable Hiral, L Raquel CARDIAC EXERCISE PHYSIOLOGIST Unavailable Unavailable Hiral, L Raquel CARDIAC EXERCISE PHYSIOLOGIST Unavailable Unavailable Hiral, L Raquel CARDIAC EXERCISE PHYSIOLOGIST Unavailable Unavailable Hiral, L Raquel CARDIAC EXERCISE PHYSIOLOGIST Unavailable Unavailable Hiral, L Raquel CARDIAC EXERCISE PHYSIOLOGIST Unavailable Unavailable Hiral, L Raquel CARDIAC EXERCISE PHYSIOLOGIST Unavailable Unavailable Hiral, L Raquel CARDIAC EXERCISE PHYSIOLOGIST Unavailable Unavailable Hiral, L Raquel CARDIAC EXERCISE PHYSIOLOGIST Unavailable Unavailable Hiral, L Raquel CARDIAC EXERCISE PHYSIOLOGIST Unavailable Unavailable Hiral, L Raquel CARDIAC EXERCISE PHYSIOLOGIST Unavailable Unavailable Hiral, L Raquel CARDIAC EXERCISE PHYSIOLOGIST Unavailable Unavailable Ludivina F Cisco ROSARIO Unavailable [...] Blayne Cisco ROSARIO Unavailable Unavailable Ludivina Blayne Cicso ROSARIO Unavailable Unavailable Ludivina Blayne Cisco ROSARIO [...] castelanjtech Unavailable Unavailable SledeandrekaBlackjtech Unavailable Unavailable SleAilin casetlantech Unavailable Unavailable Ailin Colontech Unavailable Unavailable Leon [...] is protected by Article 27-F of the [place] Public Health law. If you continue you may have access to information: Regarding HIV / AIDS; Provided by facilities licensed or operated by the [facility] Office of Mental Health; or Provided by the [facility] Office for People With Developmental Disabilities. If such information is present, then the following [facility] mandated warning applies: This information has [...] law may result in a fine or residential sentence or both. A general authorization for the release of medical or other information is NOT sufficient authorization for further disc losure. Allergies and Adverse Reactions Type Description Substance Reaction Status Data Source(s ) Propensity to adverse reactions PSEUDOEPHEDRINE-ACETAMINOPHE N Pseudoephedrine-Acetaminophen Active [facility] Propensity to adverse reactions AZITHROMYCIN Azithromycin Active [facility] Family History Family Member Name Family Member Gender Family Member Status Date o f Status Description Data Source(s) Unknown Male Problem [facility] ([facility] () Unknown Male Problem [facility] ([facility] ) Unknown Unknown Problem [facility] ([facility] ) Unknown Female Problem [facility] ([facility]) Unknown Female Problem [facility] ([facility]) Encounters Encounter Providers Location Date Indications Data Source(s ) Outpatient Attender: Jolene Stuart [facility] 10/04/2021 01:50:00 PM EST [facility] ([facility] Outpatient Attender: Raquel Bullock/Ruben/Ike/Umair 10/01/2021 02:30:00 PM EST [facility] ([facility] OFFICE OUTPATIENT VISIT 15 MINUTES Attender: Marin mejia MD Physical Therapy 08/28/2021 03:00:00 PM EDT [facility] ([facility]) Outpatient Attender: LYNNE govea 07/14/2021 11:15:00 AM EDT [facility] ([facility]) Outpatient Referrer: Leon Colon MD [email or web address] 05/16 01:25:38 PM EDT - 05/27/2021 03:01:02 PM EDT [facility] Outpatient Attender: Leon Colon MDReferrer: Cisco GALOODELLRadhaSJPLandonODELL 05/14/2021 12:00:00 AM EDT [facility] Outpatient Attender: FREDO [email or web address] Ike Marino 03/15 07:45:00 AM EDT MED[facility] ([facility] ) Outpatient Attender: Cisco Marino 03/01 08:30:00 AM EDT MED[facility] ([facility] ) Outpatient Attender: Alda kaufman 12/21/2020 03:45:00 PM EST [facility] ([facility]) Outpatient Attender: Cisco Marino 08/24 08:00:00 AM EDT MED[facility] ([facility] ) Outpatient Attender: Melany clementey 08/13/2020 06:35:00 PM EDT [facility] ([facility]) Immunizations Vaccine Date Status Description Data Source(s) New in 2011. IIV4 10/01/2020 02:31:00 PM EST completed [facility] ([facility]) Influenza, injectable, MDCK, preservative free, heather valent 08/24/2020 08:09:00 AM EDT completed [facility]) Medications Medication Brand Name Start Date Product Form Dose Route Admi nistrative Instructions Pharmacy Instructions Status Indications Reaction Description Data Source(s) Nebulizer Kit/Tubing/Mouthpiece 10/01/2021 12:00:00 AM EST active [facility] ([facility] Acetaminophen 325 MG / Hydrocodone Bitartrate 5 MG Ora l Tablet Hydrocodone Bitartrate/Acetaminophen 07/26/2021 12:00:00 AM EDT active [facility] ([facility]) Hydrochlorothiazide 12.5 MG / Losartan Potassium 100 M G Oral Tablet Losartan Potassium/Hydrochlorothiazide 07/26/2021 12:00:00 AM EDT ORAL active [facility] ([facility] ) Amoxicillin 875 MG / Clavulanate [...] 07/14/2021 12:00:00 AM EDT ORAL completed [facility] ([facility]) Hydrochlorothiazide 12.5 MG / Losartan P otassium 100 MG Oral Tablet losartan- hydrochlorothiazide (HYZAAR) 100-12.5 MG per tablet losartan-hydrochlorothiazide (HYZAAR) 100-12.5 MG per tablet 05/14/2021 12:00:00 AM EDT 1 {tbl} O ral active Take 1 tablet by mouth daily [facility] Qvar RediHaler 80 MCG/ACT AERB 47482-577-17 04/05/2021 12:00:00 AM EDT active [facility] 200 ACTUAT Albuterol 0.09 MG/ACTUAT Mete red Dose Inhaler [Ventolin] Ventolin HFA 108 (90 Base) MCG/ACT inhaler Ventolin HFA 108 (90 Base) MCG/ACT inhaler 03/05/2021 12:00:00 AM EDT active [facility] cetirizine hydrochloride 10 MG Oral Tablet cetirizine (ZyrTEC) 10 MG tablet cetirizine (ZyrTEC) 10 MG tablet 03/05/2021 12:00:00 AM EDT active [facility] pantoprazole 40 MG Delayed Release Oral Tablet pantoprazole (PROTONIX) 40 MG tablet pantoprazole (PROTONIX) 40 MG tablet 03/05/2021 12:00:00 AM EDT active [facility] Losartan Potassium 50 MG Oral Tablet losartan (COZAAR) 50 MG tablet losartan (COZAAR) 50 MG tablet 03/05/2021 12:00:00 AM EDT a borted [facility] Albuterol 0.83 MG/ML Inhalant Solution a lbuterol (PROVENTIL) (2.5 MG/3ML) 0.083% nebulizer solution albuterol (PROVENTIL) (2.5 MG/3ML) 0.083 % nebulizer solution 03/05/2021 12:00:00 AM EDT active [facility] Losartan Potassium 50 MG Oral Tablet Losartan Potassium 12:00:00 AM EDT ORAL completed MED[facility] ([facility]) cetirizine hydrochloride 10 MG Oral Tablet [Zyrtec] Zyrtec A llergy 03/01/2021 12:00:00 AM EDT ORAL active M EDENT ([facility]) Acetaminophen 325 MG / Hydrocodone Markel trate 5 MG Oral Tablet HYDROcodone- acetaminophen (NORCO) 5-325 MG per tablet HYDROcodone-acetaminophen (NORCO) 5- 325 MG per tablet 03/01/2021 12:00:00 AM EDT active TAKE ONE TABLET BY MOUTH EVERY EIGHT HOURS as needed for pain MAX DAILY DOSE THREE [facility] Azelastine HCL (Nasal) Azelastine HCL (Nasal) 12/21/2020 12:00:[address] active MEDENT ([facility]) Amoxicillin 875 MG / Clavulanate 125 MG Oral Tablet Am oxicillin/Clavulanate Potassium 12/21/2020 12:00:00 AM EST active MED[facility] ([facility]) doxycycline hyclate 100 MG Oral Tablet Doxycycline Hyclate 0 08/13/2020 12:00:00 AM EDT ORAL completed [facility] ([facility]) Diphenhydramine Hydrochloride 10 MG/ML / Zinc Acetate 1 MG/ML Topical Cream [Benadryl Itch Stopping] Benadryl Itch Stopping 08/13/2020 12:00:00 AM EDT completed MED[facility] ([facility]) Insurance Providers Payer name Policy type / Coverage type Policy ID Covered democrat ID Covered democrat's relationship to horan Policy Horan Plan Information [employer] Part B [id number] Family Dependent [id number] [employer] Part B [id number] Family Dependent [id number] [employer] Part B [id number] Family Dependent 5 [id number] [facility] B [id number] Family Dependent 5 [id number] [employer] Part B [id number] Family Dependent [id number] Select 2018 Commercial [id number] Family Dependent [id number] [facility] HUMANA [id number] [employer] Commercial [id number] Family Dependent [id number] [employer] Commercial [id number] Family Dependent [id number] Select 2018 Commercial [id number] Family Dependent [id number] [place] [employer] DPT Commercial [id number] [facility] [id number] [facility] [id number] [facility] [id number] [facility] [id number] Health Net Fed Standard Health Maintenance Organization (HMO) [id number] Family Dependent [id number] [place] Commercial [id number] Family Dependent [id number] Standard Commercial [id number] Family Dependent [id number] Select (2017) Health Maintenance Organization (HMO) [id number] Family Dependent [id number] Health [employer] Standard Health Maintenance Organization (HMO) [id number] Family Dependent [id number] [place] Commercial [id number] Family Dependent [id number] [facility] [id number] Health Net [employer] Standard Health Maintenance Organization (HMO) [id number] Family Dependent [id number] [place] Commercial [id number] Family Dependent [id number] [facility] BI O [id number] O [id number] [employer] Commercial [id number] Family Dependent [id number] [employer] Commercial [id number] Family Dependent [id number] Health [employer] Standard Health Maintenance Organization (HMO) [id number] Family Dependent [id number] Health Net [employer] Standard Health Maintenance Organization (HMO) [id number] Family Dependent [id number] [employer] Commercial [id number] Family Dependent [id number] [facility] [id number] SP [id number] [employer] Commercial [id number] Family Dependent Health Net Fed Standard Health Maintenance Organization (HMO) Family Dependent SELF PAY UNAVAILABLE SP UNAVAILA BLE HEALTHNET/ AD O [id number] S [id number] [facility] [id number] SP [id number] [facility] O [id number] O [id number] [facility] Health [facility] Commercial [id number] Self [id number] [place] Commercial [id number] Family Dependent [id number] [facility] Commercial [id number] Self [id number] DO Not Use (Now #114) Commercial [id number] Family Dependent [id number] [facility] Commercial [id number] Family Dependent [id number] [facility] Commercial [id number] Family Dependent [id number] [employer] O [id number] S [id number] Select (2018) Health Maintenance Organization (HMO) [id number] Family Dependent [id number] Health Net [employer] Standard Health Maintenance Organization (HMO) [id number] Family Dependent [id number] DO Not Use (Now #114) Commercial [id number] Family Dependent [id number] Select (2017) Health Maintenance Organization (HMO) [id number] Family Dependent [id number] Problems, Conditions, and Diagnoses Code Display Name Description Problem Type Effective Dates Data Source(s) R07.9 Chest pain, unspecified Chest pain, unspecified Diagno sis 05/27/2021 01:25:38 PM EDT [facility] E66.01 Morbid obesity Morbid obesity [id number] 05/14/2021 12:00: 00 AM EDT [facility] I10 Essential hypertension Essential hypertension [id number] 05/14/2021 12:00:00 AM EDT [facility] R07.9 Chest pain Chest pain [id number] 05/13/2021 12:00:00 AM ED T [facility] Surgeries/Procedures Procedure Description Date Indications Data Source(s) OFFICE OUTPATIENT VISIT 25 MINUTES 10/04/2021 12:00:00 AM EST MED[facility] ([facility]) Spirometry 10/01/2021 12:00:00 AM EST M EDENT ([facility]) OFFICE OUTPATIENT VISIT 25 MINUTES 10/01/2021 12:00:00 AM EST MEDENT ([facility]) Mammogram 09/06/2021 12:00:00 AM EDT M EDDEYANIRA ([facility]) RADIOLOGIC EXAMINATION KNEE 3 VIEWS 08/28/2021 12:00:0 0 AM EDT MEDENT ([facility]) OFFICE OUTPATIENT VISIT 15 MINUTES 08/28/2021 12:00:00 AM EDT MED[facility] ([facility]) RADIOLOGIC EXAMINATION KNEE 3 VIEWS 08/28/2021 12:00:0 0 AM EDT MED[facility] ([facility]) OFFICE OUTPATIENT VISIT 25 MINUTES 07/14/2021 12:00:00 AM EDT [facility] ECG ROUTINE ECG W/LEAST 12 LDS W/I&R <td>POCT AMB EKG</td><td>Routine</td><td>05/14/2021 4:09 PM EDT</td><td> Chest pain, unspecified type</td><td> </td> 05/14/2021 04:09:00 PM EDT Chest pain, unspecified type [facility] Chest pain, unspecified type OFFICE OUTPATIENT VISIT 10 MINUTES 03/15/2021 12:00:00 AM EDT ELISE ([facility]) PERIODIC PREVENTIVE MED EST PATIENT 40-64YRS 12:00:00 AM EDT MEDDEYANIRA ([facility]) THYROID STIMULATING HORMONE TSH <td>TSH</td><td>Routine</td><td>02/21/2021</td><td></td><td> </td> 02/21/2021 12:00:00 AM EDT [facility] HEPATIC FUNCTION PANEL <td>HEPATIC FUNCTION PANEL</td><td>Routine</td><td>02/21/2021</td><td></td><td> </td> 02/21/2021 12:00:00 AM EDT [facility] LIPID PANEL <td>LIPID PANEL</td><td>Rout ine</td><td>02/21/2021</td><td></td><td> </td> 02/21/2021 12:00:00 AM EDT [facility] BASIC METABOLIC PANEL CALCIUM TOTAL <td>BASIC METABOLI C PANEL</td><td>Routine</td><td>02/21/2021</td><td></td><td> </td> 02/21/2021 12:00:00 AM EDT [facility] ECG ROUTINE ECG W/LEAST 12 LDS W/I&R 08/24/2020 12:00: 00 AM EDT MED[facility] ([facility]) Mammogram 08/14/2020 12:00:00 AM EDT M EDENT ([facility]) Results ID Date Data Source [id number] 10/01/2021 03:25:00 PM EST [facility] ([facility] ) Name Value Range Interpretation Code Description Data Juliana rce(s) Supporting Document(s) PDFReport Laboratory test result MEDENT ([facility], ) FVC-Pred 3.24 L MED[facility] ([facility]) FVC-Pre 3.32 L [facility] ([facility]) FVC-%Pred-Pre 102 L MED[facility] ([facility], ) Fev1-Pred 2.52 L [facility] ([facility]) FVC-LLN 2.56 L [facility] ([facility]) Fev1-Pre 2.90 L [facility] ([facility]) Fev1-LLN 1.95 L [facility] ([facility]) Fev1-%Pred-Pre 115 L MED[facility] ([facility]) Fev6-Pre 3.32 L [facility] ([facility]) Fev6-Pred 3.13 L [facility] ([facility], ) Fev6-%Pred-Pre 105 L [facility] ([facility], ) Fev6-LLN 2.47 L [facility] ([facility], ) Yuh5awa-%Pred-Pre 111 % [facility] ([facility]) Owy6kbu-Zrz 88 % [facility] ([facility]) Vbz2byr-Ycip 78 % [facility] ([facility]) Ysf6bci-Bdlf 97 % [facility] ([facility]) Kih8muz-VKY 69 % [facility] ([facility]) Iyo9hmf-Nfq 100 % [facility] ([facility]) Mby2fds-%Pred-Pre 103 % [facility] ([facility]) FEFMax-Pred 6.25 L/E/sec [facility] ([facility]) FEFMax-Pre 4.99 L/E/sec [facility] ([facility]) FEFMax-%Pred-Pre 79 L/E/sec [facility] ([facility]) FEFMax-LLN 4.58 L/E/sec [facility] ([facility]) Lwt8768-Mqrv 2.38 L/E/sec [facility] ([facility]) Yde9068-Jad 3.96 L/E/sec [facility] ([facility]) Yws6890-%Pred-Pre 166 L/E/sec [facility] ([facility]) Oaa3110-ADW 1.18 L/E/sec [facility] ([facility]) Fkm9kyn7-Szgy 81 % [facility] ([facility]) ExpTime-Pre 6.25 sec MED[facility] ([facility]) Trg9dza3-%Pred-Pre 108 % [facility] ([facility]) Mbr3mou6-Dwb 88 % [facility] ([facility]) Nxq4dpt2-JGH 72 % [facility] ([facility]) ID Date Data Source [id number] 09/10/2021 08:47:00 AM EDT [facility] ([facility]) Name Value Range Interpretation Code Description Data Juliana rce(s) Supporting Document(s) Cholesterol [Mass/volume] in Serum or Plasma 185 mg/dL 131-200 [facility] ([facility]) Triglyceride [Mass/volume] in Serum or Plasma 231 mg/dL 30-150 [facility] ([facility]) Cholesterol in HDL [Mass/volume] in Serum or Plasma 39 mg/dL 35-60 [facility] ([facility]) Cholesterol in LDL [Mass/volume] in Serum or Plasma by calcu lation 100 CALC 50-159 [facility] ([facility]) ID Date Data Source [id number] 09/10/2021 08:47:00 AM EDT [facility] ([facility]) Name Value Range Interpretation Code Description Data Juliana rce(s) Supporting Document(s) Glucose [Mass/volume] in Serum or Plasma 100 mg/dL 74-99 [facility] ([facility]) 100-125 mg/dL PRE-DIABETES/FASTING >126 mg/dL DIABETES/FASTING Urea nitrogen [Mass/volume] in Serum or Plasma 20 mg/dL 7-18 [facility] ([facility]) Creatinine 0.8 mg/dL 0.6-1.3 [facility] Potassium [Moles/volume] in Serum or Plasma 4.0 meq/L 3.5-5.1 [facility] ([facility]) Sodium [Moles/volume] in Serum or Plasma 138 meq/L 136-145 [facility] ([facility]) Chloride [Moles/volume] in Serum or Plasma 100 meq/L 98-107 [facility] ([facility]) Carbon dioxide, total [Moles/volume] in Serum or Plasma 31 meq/L 21 -32 [facility] ([facility]) Calcium [Mass/volume] in Serum or Plasma 9.6 mg/dL 8.5-10.1 [facility] ([facility]) Alkaline phosphatase isoenzyme [Units/volume] in Serum or Pl asma 37 mg/dL 46-116 [facility] ([facility]) Aspartate aminotransferase [Enzymatic activity/volume] in Serum or Plasma 16 U/L 15-37 [facility] ([facility] ) Total Bilirubin 0.5 mg/dL 0.2-1.0 [facility] ([facility]) Alanine aminotransferase [Enzymatic activity/volume] in Seru m or Plasma 29 U/L 12-78 [facility] ([facility]) Albumin [Mass/volume] in Serum or Plasma 3.8 g/dL 3.4-5.0 [facility] A/G Ratio 1.09 CALC 1.00-1.90 [facility] Glomerular filtration rate/1.73 sq M pre dicted among non-blacks [Volume Rate/Area] in Serum or Plasma by Creatinine-based formula (MDRD) Laboratory test result [facility] Proteinase 3 Ab [Units/volume] in Serum 7.3 g/dL 6.4-8.2 [facility] Glomerular filtration rate/1.73 sq M pre dicted among blacks [Volume Rate/Area] in Serum or Plasma by Creatinine-based formula (MDRD) Laboratory test result [facility] <content>CHRONIC KIDNEY DISEASE STAGING PER NKF</content>
<content></content>
<content>STAGE I & II GFR >= 60 NORMAL TO MILDLY DECREASED</content>
<content>STAGE III GFR 30-59 MODERATELY DECREASED</content>
<content>STAGE IV GFR 15-29 SEVERELY DECREASED</content>
<content>STAGE V GFR <15 VERY LITTLE GFR LEFT</content>
<content>ESRD GFR <15 ON FIELD FOREMAN</content>
<content></content> ID Date Data Source [id number] 03/01/2021 09:50:00 AM EDT [facility] Name Value Range Interpretation Code Description Data Juliana rce(s) Supporting Document(s) Rheumatoid Factor Quant Laboratory [facility] ID Date Data Source [id number] 03/01/2021 09:50:00 AM EDT [facility] Name Value Range Interpretation Code Description Data Juliana rce(s) Supporting Document(s) Anti Double Strand-Dna AB Laboratory test result 0-9 [facility] ([facility]) <content>Negative <5</content>
<content>Equivocal 5 - 9</content>
<content>Positive >9</content>
<content></content> Antinuclear Antibodies Direct Laboratory test result Abnormal (applies to non- numeric results) [facility] ([facility]) NETWORK ACCOUNT MANAGER Antibodies 1.1 AI 0.0-0.9 [facility] ([facility]) Sjogren's Anti SS-A Laboratory test result 0.0-0.9 [facility] ([facility]) Ryan Antibodies Laboratory test result 0.0-0.9 [facility] ([facility]) Sjogren's Anti SS-B Laboratory test result 0.0-0.9 [facility] ([facility]) Tracey Comment Laboratory test result MEDEN T ([facility]) . Autoantibody Disease Association Condition Frequency -------- [...] (anti-Ryan) SLE 15 - 30% ------- --------- NETWORK ACCOUNT MANAGER Mixed Connective Tissue Disease 95% (U1 nRNP, SLE 30 - 50% anti-ribonucleoprotein) Polymyositis and/or Dermatomyositis 20% -------- --------- Scl-70 (antiDNA Scleroderma (diffuse) 20 - 35% topoisomerase) Crest 13% -------- --------- Rossana-1 Polymyositis and/or Dermatomyositis 20 - 40% -------- --------- Centromere B Scleroderma - Crest variant 80% Performed at: [facility] [id number] [id number] Manager Global: Carissa Tipton MD, Phone: [phone] ID Date Data Source [id number] 03/01/2021 09:50:00 AM EDT [facility] ([facility]) Name Value Range Interpretation Code Description Data Juliana rce(s) Supporting Document(s) C reactive protein [Mass/volume] in Serum or Plasma by High sensitivity method 0.41 mg/dL 0.00-0.30 [facility] ([facility] ) ID Date Data Source [id number] 03/01/2021 09:48:00 AM EDT [facility] ([facility]) Name Value Range Interpretation Code Description Data Juliana rce(s) Supporting Document(s) Erythrocyte sedimentation rate by Westergren method 13 mm/hr 0-15 [facility] ([facility]) ID Date Data Source [id number] 02/21/2021 07:40:00 AM EDT [facility] ([facility]) Name Value Range Interpretation Code Description Data Juliana rce(s) Supporting Document(s) Thyrotropin [Units/volume] in Serum or Plasma by Detec tion limit <= 0.05 mIU/L 2.36 uIU/mL 0.36-3.74 [facility] ID Date Data Source [id number] 02/21/2021 07:40:00 AM EDT [facility] ([facility]) Name Value Range Interpretation Code Description Data Juliana rce(s) Supporting Document(s) Cholesterol [Mass/volume] in Serum or Plasma 183 mg/dL 131-200 [facility] ([facility]) Triglyceride [Mass/volume] in Serum or Plasma 256 mg/dL 30-150 [facility] ([facility]) Cholesterol in HDL [Mass/volume] in Serum or Plasma 47 mg/dL 35-60 [facility] ([facility]) Cholesterol in LDL [Mass/volume] in Serum or Plasma by calcu lation 85 CALC 50-159 [facility] ([facility]) ID Date Data Source [id number] 02/21/2021 07:40:00 AM EDT [facility] ([facility]) Name Value Range Interpretation Code Description Data Juliana rce(s) Supporting Document(s) Glucose [Mass/volume] in Serum or Plasma 99 mg/dL 74-99 [facility] ([facility]) 100-125 mg/dL PRE-DIABETES/FASTING >126 mg/dL DIABETES/FASTING Urea nitrogen [Mass/volume] in Serum or Plasma 16 mg/dL 7-18 [facility] ([facility]) Creatinine 0.9 mg/dL 0.6-1.3 [facility] Sodium [Moles/volume] in Serum or Plasma 138 meq/L 136-145 [facility] ([facility]) Potassium [Moles/volume] in Serum or Plasma 4.5 meq/L 3.5-5.1 [facility] ([facility]) Chloride [Moles/volume] in Serum or Plasma 103 meq/L 98-107 [facility] ([facility]) Calcium [Mass/volume] in Serum or Plasma 9.0 mg/dL 8.5-10.1 [facility] ([facility]) Carbon dioxide, total [Moles/volume] in Serum or Plasma 28 meq/L 21 -32 [facility] ([facility]) Alkaline phosphatase isoenzyme [Units/volume] in Serum or Pl asma 39 mg/dL 46-116 [facility] ([facility]) Total Bilirubin 0.4 mg/dL 0.2-1.0 [facility] ([facility]) Aspartate aminotransferase [Enzymatic activity/volume] in Serum or Plasma 16 U/L 15-37 [facility] ([facility] ) Alanine aminotransferase [Enzymatic activity/volume] in Seru m or Plasma 32 U/L 12-78 [facility] ([facility]) Albumin [Mass/volume] in Serum or Plasma 4.1 g/dL 3.4-5.0 [facility] ([facility]) Proteinase 3 Ab [Units/volume] in Serum 7.6 g/dL 6.4-8.2 [facility] ([facility]) Glomerular filtration rate/1.73 sq M pre dicted among non-blacks [Volume Rate/Area] in Serum or Plasma by Creatinine-based formula (MDRD) Laboratory test result [facility] A/G Ratio 1.17 CALC 1.00-1.90 [facility]) Glomerular filtration rate/1.73 sq M pre dicted among blacks [Volume Rate/Area] in Serum or Plasma by Creatinine-based formula (MDRD) Laboratory test result [facility] ([facility]) <content>CHRONIC KIDNEY DISEASE STAGING PER NKF</content>
<content></content>
<content>STAGE I & II GFR >= 60 NORMAL TO MILDLY DECREASED</content>
<content>STAGE III GFR 30-59 MODERATELY DECREASED</content>
<content>STAGE IV GFR 15-29 SEVERELY DECREASED</content>
<content>STAGE V GFR <15 VERY LITTLE GFR LEFT</content>
<content>ESRD GFR <15 ON FIELD FOREMAN</content>
<content></content> ID Date Data Source [id number] 08/23/2020 07:51:00 AM EDT [facility] ([facility]) Name Value Range Interpretation Code Description Data Juliana rce(s) Supporting Document(s) Urea nitrogen [Mass/volume] in Serum or Plasma 15 mg/dL 7-18 [facility] ([facility]) Glucose [Mass/volume] in Serum or Plasma 99 mg/dL 74-99 [facility] ([facility]) 100-125 mg/dL PRE-DIABETES/FASTING >126 mg/dL DIABETES/FASTING Creatinine 0.9 mg/dL 0.6-1.3 [facility] Potassium [Moles/volume] in Serum or Plasma 4.4 meq/L 3.5-5.1 [facility] ([facility]) Chloride [Moles/volume] in Serum or Plasma 106 meq/L 98-107 [facility] ([facility]) Sodium [Moles/volume] in Serum or Plasma 142 meq/L 136-145 [facility] ([facility]) Glomerular filtration rate/1.73 sq M pre dicted among non-blacks [Volume Rate/Area] in Serum or Plasma by Creatinine-based formula (MDRD) Laboratory test result [facility] ([facility] ) Carbon dioxide, total [Moles/volume] in Serum or Plasma 30 meq/L 21 -32 [facility] ([facility]) Calcium [Mass/volume] in Serum or Plasma 8.8 mg/dL 8.5-10.1 [facility] ([facility]) Glomerular filtration rate/1.73 sq M pre dicted among blacks [Volume Rate/Area] in Serum or Plasma by Creatinine-based formula (MDRD) Laboratory test result [facility] ([facility]) <content>CHRONIC KIDNEY DISEASE STAGING PER NKF</content>
<content></content>
<content>STAGE I & II GFR >= 60 NORMAL TO MILDLY DECREASED</content>
<content>STAGE III GFR 30-59 MODERATELY DECREASED</content>
<content>STAGE IV GFR 15-29 SEVERELY DECREASED</content>
<content>STAGE V GFR <15 VERY LITTLE GFR LEFT</content>
<content>ESRD GFR <15 ON FIELD FOREMAN</content>
<content></content> Procedure Social History Code Duration Value Status Description Data Source(s ) Smoking 10/04/2021 12:00:00 AM EST Patient is a former smoker completed Patient is a former smoker [facility] ([facility]) Smoking 10/01/2021 12:00:00 AM EST Patient is a former smoker completed Patient is a former smoker [facility] ([facility], ) Smoking 08/28/2021 12:00:00 AM EDT Patient is a former smoker completed Patient is a former smoker [facility] ([facility]) Alcohol intake 05/14/2021 12:00:00 AM EDT Ex-drinker (finding) comp leted Ex- drinker (finding) [facility] Tobacco use and exposure 05/14/2021 12:00:00 AM EDT Never used co mpleted Never used [facility] Smoking 05/14/2021 12:00:00 AM EDT Former smoker completed Former smoker [facility] Vital Signs ID Date Data Source UNK Name Value Range Interpretation Code Description Data Source(s) Systolic blood pressure 125 mm[Hg] 125 mm[facility]Hg] [facility]) Diastolic blood pressure 83 mm[Hg] 83 mm[Hg] [facility] ([facility]) Heart rate 83 /min 83 /min [facility] ([facility], [facility]) Respiratory rate 18 /min 18 /min [facility] ( [facility]) Oxygen saturation in Arterial blood by Pulse oximetry 98 % 98 % [facility] ([facility]) Body temperature 101.9 [degF] 101.9 [degF] [facility] NT ([facility], [facility]) Body weight 262.00 [lb_av] 262.00 [lb_av] [facility] T ([facility], [facility]) Body height 62 [in_i] 62 [in_i] [facility] ([facility], [facility]) 5'2" Body mass index (BMI) [Ratio] 47.9 kg/m2 47.9 k g/m2 [facility] ([facility]) Systolic blood pressure 142 mm[Hg] 142 mm[Hg] [facility] ([facility], ) Diastolic blood pressure 84 mm[Hg] 84 mm[Hg] [facility] ([facility]) Heart rate 102 /min 102 /min [facility] ([facility]) Oxygen saturation in Arterial blood by Pulse oximetry 97 % 97 % [facility] ([facility]) Respiratory rate 20 /min 20 /min [facility] ( [facility]) Body height 63 [in_i] 63 [in_i] [facility] ([facility]) 5'3" Body weight 265.00 [lb_av] 265.00 [lb_av] [facility] T ([facility]) Body mass index (BMI) [Ratio] 46.9 kg/m2 46.9 k g/m2 [facility] [place] body weight 115 [lb_av] 115 [lb_av] [facility] ([facility]) Body weight 120.204 kg 120.204 kg [facility] ([facility]) Body surface area Derived from formula 2.18 m2 2.18 m2 [facility] ([facility]) Respiratory rate 80 /min 80 /min [facility] ( [facility]) Body weight 262.00 [lb_av] 262.00 [lb_av] [facility] T ([facility]) Body height 62 [in_i] 62 [in_i] [facility] ([facility]) 5'2" Heart rate 68 /min 68 /min [facility] ([facility]) Systolic blood pressure 122 mm[Hg] 122 mm[Hg] M [facility] ([facility]) Diastolic blood pressure 70 mm[Hg] 70 mm[Hg] [facility] ([facility]) Body mass index (BMI) [Ratio] 47.9 kg/m2 47.9 k g/m2 [facility] ([facility]) Systolic blood pressure 159 mm[Hg] 159 mm[Hg] [facility]) Diastolic blood pressure 95 mm[Hg] 95 mm[Hg] [facility] ([facility], [facility]) Body weight 267.00 [lb_av] 267.00 [lb_av] [facility] ([facility], [facility]) Body height 62 [in_i] 62 [in_i] [facility] ([facility], [facility]) 5'2" Body mass index (BMI) [Ratio] 48.8 kg/m2 48.8 k g/m2 [facility] ([facility], [facility]) Heart rate 89 /min 89 /min [facility] ([facility], [facility]) Respiratory rate 20 /min 20 /min [facility] ( [facility], [facility]) Oxygen saturation in Arterial blood by Pulse oximetry 98 % 98 % [facility] ([facility], [facility]) Body temperature 97.1 [degF] 97.1 [degF] [facility] ([facility], [facility]) Systolic blood pressure 160 mm[Hg] 160 mm[Hg] [facility] Diastolic blood pressure 90 mm[Hg] 90 mm[Hg] [facility] Heart rate 70 /min 70 /min [facility] Body height 157.5 cm 157.5 cm [facility] Body weight 123.832 kg 123.832 kg [facility] Body mass index (BMI) [Ratio] 49.93 kg/m2 49.93 kg/m2 [facility] Oxygen saturation in Arterial blood by Pulse oximetry 98 % 98 % [facility] Diastolic blood pressure 86 mm[Hg] 86 mm[Hg] [facility] ([facility]) Systolic blood pressure 142 mm[Hg] 142 mm[Hg] [facility] ([facility]) Diastolic blood pressure 80 mm[Hg] 80 mm[Hg] [facility] ([facility]) jw Systolic blood pressure 136 mm[Hg] 136 mm[Hg] [facility] ([facility]) jw Systolic blood pressure 150 mm[Hg] 150 mm[Hg] [facility] ([facility]) Diastolic blood pressure 98 mm[Hg] 98 mm[Hg] [facility] ([facility]) Heart rate 80 /min 80 /min [facility] ([facility]) Body height 62 [in_i] 62 [in_i] [facility] ([facility]) 5'2" Body weight 271.00 [lb_av] 271.00 [lb_av] [facility] ([facility]) Oxygen saturation in Arterial blood by Pulse oximetry 98 % 98 % [facility] ([facility]) Body mass index (BMI) [Ratio] 49.6 kg/m2 49.6 k g/m2 [facility] ([facility]) Body height 62 [in_i] 62 [in_i] [facility] ([facility], [facility]) 5'2" Body temperature 96.9 [degF] 96.9 [degF] [facility] ([facility], [facility]) Body mass index (BMI) [Ratio] 50.3 kg/m2 50.3 k g/m2 [facility] ([facility], [facility]) Systolic blood pressure 170 mm[Hg] 170 mm[Hg] [facility] ([facility], [facility]) Diastolic blood pressure 100 mm[Hg] 100 mm[Hg] [facility] ([facility], [facility]) Heart rate 89 /min 89 /min [facility] ([facility], [facility]) Respiratory rate 16 /min 16 /min [facility] ( [facility], [facility]) Oxygen saturation in Arterial blood by Pulse oximetry 97 % 97 % [facility] ([facility]) Body weight 275.00 [lb_av] 275.00 [lb_av] [facility] ([facility]) Body weight 270.00 [lb_av] 270.00 [lb_av] [facility] ([facility]) Heart rate 77 /min 77 /min [facility] ([facility]) Body mass index (BMI) [Ratio] 47.8 kg/m2 47.8 k g/m2 [facility] ([facility]) [place] body weight 115 [lb_av] 115 [lb_av] [facility] ([facility]) Body weight 122.472 kg 122.472 kg [facility] ([facility]) Body surface area Derived from formula 2.20 m2 2.20 m2 [facility] ([facility]) Oxygen saturation in Arterial blood by Pulse oximetry 98 % 98 % [facility] ([facility]) Body height 63 [in_i] 63 [in_i] [facility] ([facility]) 5'3" Systolic blood pressure 124 mm[Hg] 124 mm[Hg] [facility]) Diastolic blood pressure 82 mm[Hg] 82 mm[Hg] [facility] ([facility]) Body weight 267.00 [lb_av] 267.00 [lb_av] [facility] ([facility]) Systolic blood pressure 138 mm[Hg] 138 mm[Hg] [facility] Heart rate 76 /min 76 /min [facility] ([facility]) Body height 62 [in_i] 62 [in_i] [facility] ([facility]) 5'2" Body mass index (BMI) [Ratio] 48.8 kg/m2 48.8 k g/m2 [facility] ([facility]) Diastolic blood pressure 80 mm[Hg] 80 mm[Hg] [facility] ([facility]) Diastolic blood pressure 107 mm[Hg] 107 mm[Hg] [facility] ([facility]) Body temperature 98.4 [degF] 98.4 [degF] [facility] ([facility]) Systolic blood pressure 154 mm[Hg] 154 mm[Hg] [facility] ([facility]) Body weight 260.00 [lb_av] 260.00 [lb_av] [facility] ([facility]) Body height 62 [in_i] 62 [in_i] [facility] ([facility]) 5'2" Body mass index (BMI) [Ratio] 47.5 kg/m2 47.5 k g/m2 [facility] ([facility]) Heart rate 76 /min 76 /min [facility] ([facility]) Respiratory rate 16 /min 16 /min [facility] ( [facility]) Oxygen saturation in Arterial blood by Pulse oximetry 98 % 98 % [facility] ([facility]) Patient Treatment Plan of Care Planned Activity Planned Date Details Description Data Source (s) Hydrochlorothiazide 12.5 MG / Losartan Potassium 100 M G Oral Tablet 05/14/2021 12:00:00 AM EDT [facility] Qvar RediHaler 80 MCG/ACT AERB 04/05/2021 12:00:00 AM EDT [facility] Albuterol 0.83 MG/ML Inhalant Solution 03/05/2021 12:00:00 AM EDT [facility] Losartan Potassium 50 MG Oral Tablet 03/05/2021 12:00:00 AM EDT [facility] pantoprazole 40 MG Delayed Release Oral Tablet 03/05/2021 12:00:00 AM EDT [facility] cetirizine hydrochloride 10 MG Oral Tablet 03/05/2021 12:00:00 AM E DT [facility] 200 ACTUAT Albuterol 0.09 MG/ACTUAT Metered Dose Inhal er [Ventolin] 03/05/2021 12:00:00 AM EDT [facility] Acetaminophen 325 MG / Hydrocodone Bitartrate 5 MG Ora l Tablet 03/01/2021 12:00:00 AM EDT [facility]
[2021-10-12 14:19] LABS: CK-MB VALUE MASS 2.3 NG/ML (<3.6); MB/CK RELATIVE INDEX 0.58 (< OR =4)
[2021-10-12 14:21] LABS: ABG BASE EXCESS -3.7 (-2.0-2.0); ABG HCO3 20.2 MEQ/L (22.0-26.0); ABG PARTIAL PRESSURE CO2 33.9 mmHg (35.0-45.0); ABG PARTIAL PRESSURE O2 88.8 mmHg (75.0-100.0); ABG STANDARD HCO3 21.4 MEQ/L (22.0-26.0); ABG TOTAL CO2 21.3 MEQ/L (22.0-29.0); ABG pH (ARTERIAL) 7.394 UNITS (7.350-7.450)
[2021-10-12] MEDS ORDERED: PANT40TA29 PO (14:33)
[2021-10-12] MEDS ORDERED: LOSA100T8 PO (14:33)
[2021-10-12] MEDS ORDERED: ALBU83IN INH (14:33)
[2021-10-12] MEDS ORDERED: CETI10TA4 PO (14:33)
[2021-10-12] MEDS ORDERED: HYDR-4571 PO (14:33)
[2021-10-12] MEDS ORDERED: QVAR80AE8 INH (14:33)
[2021-10-12 14:48] LABS: ALBUMIN 2.9 GM/DL (3.2-5.2); BILIRUBIN,TOTAL 0.6 MG/DL (0.2-1.0); C REACTIVE PROTEIN QUANTITATIV 18.4 MG/DL (0.00-0.30); CALCIUM LEVEL 8.4 MG/DL (8.5-10.1); CREATININE FOR GFR 1.23 MG/DL (0.55-1.30); GLOMERULAR FILTRATION RATE 47.7 (>51); POTASSIUM SERUM 4.4 MEQ/L (3.5-5.1); TOTAL PROTEIN 7.9 GM/DL (6.4-8.2)
[2021-10-12] MEDS ORDERED: ISOVUE-370 76% 100ML VIAL As Ordered ONE (14:56)
[2021-10-12] MEDS ORDERED: ENOXAPARIN 100MG/1ML SYRINGE (J1650 PER 10MG) SC SCH (15:25)
--- NOTE | 2021-10-12 15:26 | REP ---
INDICATION: r/o PE with covid, hypoxemia, high DDimer COMPARISON: None. TECHNIQUE: Axial contrast enhanced images from the thoracic inlet to the upper abdomen using pulmonary embolus technique with multiplanar re-formations. 75 ml Isovue 370 intravenous contrast material administered without complication. This CT examination was performed using the following dose reduction techniques: Automated exposure control, adjustment of mA and/or kv according to the patient's size, and use of iterative reconstruction technique. FINDINGS: Satisfactory enhancement of the pulmonary vasculature is achieved and no filling defects are identified to suggest pulmonary embolus. 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 No effusion. No pneumothorax. Tracheobronchial tree is patent. Reactive mediastinal and hilar lymph nodes noted. Thoracic aorta without aneurysm or dissection. Is upper limits of normal in size without pericardial effusion. Thyroid gland appears normal by CT evaluation. Musculoskeletal structures are intact. Limited upper abdomen demonstrates normal bilateral adrenal glands. IMPRESSION: No evidence for pulmonary embolus. Extensive parenchymal opacities and consolidations consistent with COVID-19 pulmonary disease.. <Electronically signed by Maycol Massey > 10/12/21 [id number]
--- NOTE | 2021-10-12 15:44 | HPEPDOC ---
General Date of Admission Oct 12, 2021 at 13:56 Date of Service: Oct 12, 2021 Attending Physician: LEEANNA DEGROOT MD Chief Complaint The patient is a 56-year-old female admitted with a reason for visit of Acute Hypoxemic Respiratory Failure Due To Covid19. Source: Patient Exam Limitations: Clinical conditions Timing/Duration: Week(s) (2) Severity: Moderate, Severe Associated Symptoms: Chest Pain, Cough, Fever, Chills, Shortness of breath History of Present Illness Patient is a 56 year old female with hypertension who was brought to [facility] ER via EMS due to worsening dyspnea. She has respiratory symptoms for about 2 weeks, and symptoms worsened for the past 2 days. She reported fever, chills, dyspnea, cough, sore throat, and diarrhea. Denies chest pain, palpitation, loss of smell or loss of taste. Patient has sleep apnea and is on CPAP at home. Per ER record review, upon ER arrival patient was noted to be saturating at around 70% on CPAP. Home Medications Scheduled Beclomethasone Dipropionate (Qvar Redihaler) 80 Mcg/Act Hfa.aeroba, 1 PUFF INH BID, (Reported) Cetirizine HCl (Cetirizine HCl) 10 Mg Tablet, 10 MG PO DAILY, (Reported) Losartan/Hydrochlorothiazide (Losartan-Hctz 100-12.5 mg Tab) 1 Each Tablet, 1 TAB PO DAILY, (Reported) Pantoprazole Sodium (Pantoprazole Sodium) 40 Mg Tablet.dr, 40 MG PO BID, (Reported) Zinc Sulfate (Zinc Sulfate) 220 Mg Capsule, 220 MG PO DAILY, (Reported) Scheduled PRN Albuterol Sulf (Albuterol Sulfate) 2.5 Mg/3 Ml Vial.neb, 1 VIAL INH QID PRN for SOB/WHEEZING, (Reported) Hydrocodone/Acetaminophen (Hydrocodone-Acetamin 5-325 mg) 1 Each Tablet, 1 TAB PO Q8H PRN for PAIN LEVEL 5-7, (Reported) Allergies Coded Allergies: aspirin (Verified Allergy, Intermediate, RASH, 12/16/19) fluticasone (Verified Allergy, Unknown, 12/16/19) venlafaxine (Verified Allergy, Unknown, 12/16/19) latex (Verified Adverse Reaction, Intermediate, BLEEDS AT NAILBEDS, 12/16/19) paroxetine (Verified Adverse Reaction, Intermediate, DREAMS OF SELF HARM, 12/16/19) erythromycin base (Verified Adverse Reaction, Mild, VOMITING, 12/16/19) naproxen (Verified Adverse Reaction, Mild, STOMACH UPSET, 12/16/19) Past Medical History Medical History Essential hypertension Left knee symptomatic osteoarthritis Bilateral carpal tunnel syndrome s/p b/l carpal tunnel release Migraines Asthma Sleep apnea uses CPAP at home Sinusitis/post-nasal drip GERD History of nephrolithiasis with spontaneous passage Depression/Anxiety Surgical History Bilateral knee replacement(2013 and 2017) Bilateral carpal tunnel release section Umbilical hernia repair Bile duct surgery Hysterectomy Colonoscopy Family History Family history of hypertension Social History * Smoker: Denies Recent Travel/Sick Contacts: Denies: Recent travel, Recent sick contacts Lives at home A-FIB/CHADSVASC A-FIB History Current/History of A-Fib/PAF?: No Review of Systems Constitutional: Reports: Chills, Fever Pulmonary: Reports: Dyspnea, Cough Cardiovascular: Reports: Chest Pain; Denies: Palpitations Gastrointestinal: Reports: Diarrhea; Denies: Nausea, Vomiting Neurological: Reports: Other Symptoms (denies tingling or loss of sesnsation); Denies: Numbness Physical Examination General Exam: Positive: Alert, Cooperative, Mild Distress Eye Exam: Positive: Conjunctiva & lids normal; Negative: Sclera icteric ENT Exam: Positive: Atraumatic, Mucous membr. moist/pink Neck Exam: Positive: Supple Chest Exam: Positive: Diminished (Diminished lung sounds throughout), Other (Labored breathing); Negative: Clear to auscultation, Normal air movement, Rales, Wheezing Heart Exam: Positive: Rate Normal, Regular Rhythm; Negative: Murmurs Telemetry: Positive: Sinus Abdomen Exam: Positive: Soft; Negative: Tenderness Extremity Exam: Negative: Edema, Tenderness, Swelling Skin Exam: Positive: Nl turgor and temperature; Negative: Breakdown Neuro Exam: Positive: Normal Speech, Normal Tone Psych Exam: Positive: Mental status NL, Anxiety, Memory Intact Vital Signs Vital Signs Date Time Temp Pulse Resp B/P (MAP) Pulse Ox O2 Delivery O2 Flow Rate FiO2 10/12/21 14:26 81 96 10/12/21 14:23 100 10/12/21 14:15 105/57 (73) 10/12/21 13:30 28 NIPPV (BIPAP/CPAP) 10/12/21 12:57 101.5 Laboratory Data Labs 24H Laboratory Tests 2 10/12/21 12:47: Immature Granulocyte % (Auto) 1.7, Neutrophils (%) (Auto) 86.6H, Lymphocytes (%) (Auto) 8.2L, Monocytes (%) (Auto) 3.1, Eosinophils (%) (Auto) 0.1, Basophils (%) (Auto) 0.3, Neutrophils # (Auto) 8.3, Lymphocytes # (Auto) 0.8L, Monocytes # (Auto) 0.3, Eosinophils # (Auto) 0.0, Basophils # (Auto) 0.0, Nucleated Red Blood Cells % (auto) 0.0, Prothrombin Time 16.2H, Prothromb Time International Ratio 1.25, Activated Partial Thromboplast Time 31.7, D-Dimer, Quantitative > 4000H, Blood Gas Bicarbonate Standard 19.9L, Arterial Blood pH 7.371, Arterial Blood Partial Pressure CO2 33.8L, Arterial Blood Partial Pressure O2 48.7*L, Arterial Blood Total CO2 20.2L, Arterial Blood HCO3 19.1L, Arterial Blood Base Excess -5.2L, Arterial Blood Oxygen Saturation 82.1L, Anion Gap 12, Glomerular Filtration Rate 47.7L, Lactic Acid Level 1.8, Calcium Level 8.4L, Ferritin 1204H, Total Bilirubin 0.6, Aspartate Amino Transf (AST/SGOT) 67H, Alanine Am inotransferase (ALT/SGPT) 41, Alkaline Phosphatase 40L, Lactate Dehydrogenase 1029H, Total Creatine Kinase 394H, Creatine Kinase MB 2.3, Creatine Kinase MB Relative Index 0.58, Troponin I High Sensitivity > 200.0*H, C-Reactive Protein, Quantitative 18.40H, Total Protein 7.9, Albumin 2.9L, Albumin/Globulin Ratio 0.6L 10/12/21 14:10: Blood Gas Bicarbonate Standard 21.4L, Arterial Blood pH 7.394, Arterial Blood Partial Pressure CO2 33.9L, Arterial Blood Partial Pressure O2 88.8, Arterial Blood Total CO2 21.3L, Arterial Blood HCO3 20.2L, Arterial Blood Base Excess - 3.7L CBC/BMP Laboratory Tests 10/12/21 12:47 Microbiology Microbiology 10/12/21 Blood Culture, Received Pending 10/12/21 Respiratory Virus Panel (PCR) (JONE) - Final, Complete SARS-CoV-2 (COVID 19) 10/12/21 Blood Culture, Received Pending Assessment/Plan Patient is a 56 year old female with hypertension and DORINDA on CPAP at home presented to [facility] ER due to 2 days of worsening of dyspnea, and cough was found to have COVID 19 and elevated Troponin. She denies chest pain or palpitation. #Hypoxia due to COVID pneumonia vs superimposed bacteria pneumonia vs NSTEMI vs demand ischemia -Patient is now saturating well 97% on BIPAP. ABG indicated hypoxemia with O2 of 48.7 -ICU consultation ordered, continue BIPAP -IV Dexamethasone, IV Remdesivir, and IV Bariticumab -Start 60mg Q12H Levonox for anticoagulation as patient has COVID with BMI>35 -Start Ceftriaxone and Azithromycin for empiric therapy for superimposed bacteria pneumonia. Patient has no leukocytosis but reported fever. Procalcitonin pending. If procalcitonin negative, march d/c antibiotics -CTA showed no PE. BNP ordered to r/o congestive heart failure. -Albuterol PRN, Bedesonide inhalation Q12H #Troponemia, likely due to demand ischemia from cytokine storm vs NSTEMI -Patient's high sensitive troponin>200, EKG from 1245 on 10/12/2021 was reviewed which showed no ST elevation or depression -The above was discussed between attending and on-call insurance special agent Dr. Al on 10/12/2021 afternoon, who advised the troponemia is likely due to demand ischemia. Echo STAT ordered; if echo showed wall motion abnormality, patient is to receive full anticoagulation with heparin drip and to be transferred to [place] to emergent catheterization -No Aspirin as patient has allergic reaction to Aspirin -Repeat cardiac marker and EKG ordered -Continue telemetry #DANIE -GFR 47.7 with baseline GFR>60 -IV NS with 500ml/hr with 1L in total -Follow up with BMP in AM #Hypertension -Blood pressure roughly stable now -Hold home medication Losartan and HCTZ for now due to DANIE, plan resume tomorrow. If no improvement of DANIE, switch antihypertensive medication to amlodipine for blood pressure control -Continue to monitor vital signs #GERD -Continue home med Pantoprazole CODE STATUS: DNR/DNI DVT prophylaxis: Lovenox 60mg BID Plan / VTE VTE Prophylaxis Ordered?: Yes GME ATTESTATION GME ATTESTATION My faculty preceptor for this patient encounter was physically present during the encounter and was fully available. All aspects of the patient interview, examination, medical decision making process, and medical care plan development were reviewed and approved by the faculty preceptor. The faculty preceptor is aware and concurs with the plan as stated in the body of this note and will attest to such by his/her cosignature. ATTENDING NOTE I personally examined Ms. Cast and discussed her presentation, findings, studies and management with the resident physician and I agree with the above described history, assessment and plan. SAMIRA ROGERS DO Oct 12, 2021 15:43 LEEANNA DEGROOT MD Oct 13, 2021 08:48
[2021-10-12] MEDS ORDERED: ZINC220CA PO (15:46)
[2021-10-12] MEDS ORDERED: HOME MED LIST COMPLETE! XX SCH (15:50)
[2021-10-12] MEDS ORDERED: NS 1,000 ML IV SCH (16:00)
[2021-10-12 16:15] LABS: CREATININE FOR GFR 1.19 MG/DL (0.55-1.30); GLOMERULAR FILTRATION RATE 49.6 (>51)
[2021-10-12 16:28] LABS: CK-MB VALUE MASS 2.5 NG/ML (<3.6); MB/CK RELATIVE INDEX 0.76 (< OR =4)
[2021-10-12] MEDS: BARICITINIB 2MG TABLET (OLUMIANT) FOR EUA PO SCH (16:40)
[2021-10-12] MEDS ORDERED: NORCO, ANEXSIA 5/325MG TABLET (HYDROcodone/ACETAMINOPHEN) PO PRN (16:50)
[2021-10-12] MEDS ORDERED: ALBUTEROL 90 MCG/ACT 8GM HFA INHALER INH PRN (16:50)
[2021-10-12 17:00] VITALS: BP 149/90
[2021-10-12] MEDS ORDERED: cefTRIAXone SOD 1 GM in D5W MINI-BAG PLUS 50 ML IV ONE (17:00)
[2021-10-12] MEDS ORDERED: REMDESIVIR 200 MG in NS 250 ML IV ONE (17:00)
[2021-10-12] MEDS: dexameTHASONE 4 MG/ML 1ML VIAL (J1100 PER 1MG) IV SCH ×2 (17:10→20:18)
[2021-10-12] MEDS ORDERED: ENOXAPARIN 60MG/0.6ML SYRINGE (J1650 PER 10MG) SC SCH ×2 (18:00→21:00)
[2021-10-12] MEDS ORDERED: ENOXAPARIN 60MG/0.6ML SYRINGE (J1650 PER 10MG) SC STA (18:01)
[2021-10-12] MEDS ORDERED: ENOXAPARIN 120MG/0.8ML SYRINGE (J1650 PER 10MG) SC STA (18:21)
[2021-10-12] MEDS: LOSARTAN 50MG TABLET PO SCH (18:43)
[2021-10-12] MEDS: CETIRIZINE (ZyrTEC) 10 MG TAB PO SCH (18:44)
[2021-10-12] MEDS: hydroCHLOROthiazide 12.5 MG CAPSULE PO SCH (18:44)
[2021-10-12] MEDS ORDERED: SODIUM CHLORIDE 0.9% INJ 10 ML SYR IV ONE (19:00)
[2021-10-12 20:00] VITALS: BP 143/88
[2021-10-12] MEDS: PANTOPRAZOLE 40MG TAB (PROTONIX) PO SCH (20:17)
--- NOTE | 2021-10-12 20:17 | ECGEPIP ---
[facility] Test Date: 2021-10-12 Pat Name: JULI KINNEY Department: Room: [place] [address] Gender: Female Intern Architect: jayden : 1965 Requested By: SAMIRA ROGERS Order Number: [id number] Reading MD: Christopher Al Measurements Intervals [place] Rate: 81 P: 68 [place]: 156 QRS: 25 QRSD: 100 T: -2 QT: 386 QTc: 448 Interpretive Statements Normal sinus rhythm, Poor R-wave progression Improved repolarization c/w 10/12/21 at 1245. Electronically Signed on 10-12-2021 20:17:00 EST by Christopher Al
[2021-10-12] MEDS: AZITHROMYCIN INJ 500 MG, VIAL MATE ADAPTER 1 EACH in NS 250 ML IV SCH (20:18)
[2021-10-12] MEDS ORDERED: ENOXAPARIN 120MG/0.8ML SYRINGE (J1650 PER 10MG) SC SCH (21:00)
[2021-10-12] MEDS: BUDESONIDE 0.5 MG/2 ML INHALATION SUSPENSION INH SCH (21:13)
--- NOTE | 2021-10-12 21:21 | ECHO ---
ECHOCARDIOGRAM DATE OF PROCEDURE: 10/12/2021 Age: Gender: Female Height: 157 cm Weight: 117 kg REFERRING PHYSICIAN: Benita Lowry M.D. INDICATION: Dyspnea, COVID-19 MEASUREMENTS: 2D Measurements: Left atrium 3.3 cm Left ventricle diastole 4.1 cm Intraventricular septum 1.15 cm Posterior wall 1.24 cm Aortic root 3.3 cm Inferior vena cava 2.3 cm with more than 40% respiratory variation Doppler Measurements: Aortic valve velocity 171 cm/sec LVOT velocity 103 cm/sec LVOT VTI 19.1 cm No mitral regurgitation Mitral E velocity 96.7 cm/sec Mitral A velocity 87.8 cm/sec Mitral deceleration time 246 msec Mild tricuspid regurgitation. Estimated right ventricle systolic pressure 56-61 mmHg Estimated right atrial pressure 5-10 mmHg No pulmonic regurgitation MITRAL ANNULAR TISSUE DOPPLER: E prime septal 9.3 cm/sec E prime lateral 12.5 cm/sec DESCRIPTION: Rhythm was sinus. This was a moderately technically difficult echocardiogram. This was a 2D, M-mode, color flow Doppler and pulse wave Doppler examination and included mitral annular tissue Doppler. CONCLUSIONS: 1. Borderline concentric left ventricle hypertrophy. Normal regional left ventricular (LV) wall motion and wall thickening. Normal LV systolic function. Left ventricular ejection fraction (LVEF) 65-70% by visual assessment. Normal LV diastolic function. 2. Suggestive of moderately-severe elevation of estimated right ventricle systolic pressure (56-61 mmHg). Estimated right atrial pressure of 5-10 mmHg. 3. Tiny pericardial effusion without left diastolic chamber collapse. 4. Otherwise normal appearing echocardiogram Doppler findings.
--- NOTE | 2021-10-12 21:26 | CCN ---
CRITICAL CARE NOTE DATE: 10/12/2021 CHIEF COMPLAINT: Shortness of breath and acute hypoxemic respiratory failure. HISTORY OF PRESENT ILLNESS: Miss Cast is a 56-year-old female with a past medical history of DORINDA on CPAP, asthma with a prior history of nicotine dependence, hypertension and morbid obesity who presented with complaints of worsening shortness of breath and dyspnea on exertion as well as fatigue. Patient states she had symptoms for about two weeks with viral URI symptoms. For about a week, she started noticing fever as well as some shortness of breath and dyspnea with exertion. In the last few days, however, she was noticing worsening difficulty with her breathing as well as fatigue, prompting her to come to the emergency room. She reports some chills as well and some cough with some occasional mucus although she states it is difficult for her expectorate mucus. She has not had any chest pain or palpitations and she denies any nausea or vomiting. She has had some diarrhea. Patient denies any increasing lower extremity edema although she does have a history of leg swelling, she states, with increased salt in her diet. She states she has had decreased appetite recently with her current illness. In the ED, patient was hypoxic. She was placed on a nonrebreather but continued to have hypoxia. She was then placed on CPAP although it appears she was on a setting of 10 cm H2O and continued to be hypoxic on CPAP, prompting change to BiPAP at settings of 16/8 and 100% FiO2 with improvement in her O2 sats. PAST MEDICAL AND SURGICAL HISTORY: 1. Hypertension. 2. Osteoarthritis. 3. Asthma. 4. Prior history of nicotine dependence. 5. DORINDA on CPAP at 13 cm H2O. 6. Sinusitis. 7. GERD. 8. History of nephrolithiasis. 9. Depression/anxiety. 10. Bilateral knee replacement. 11. Bilateral carpal tunnel release. 12. section. 13. Umbilical hernia repair. 14. Bile duct dilation surgery. 15. . 16. Hysterectomy. ALLERGIES: Aspirin, fluticasone, venlafaxine, latex, paroxetine, erythromycin and naproxen. HOME MEDICATIONS: 1. QVAR. 2. Cetirizine. 3. Losartan/hydrochlorothiazide. 4. Pantoprazole. 5. Zinc. FAMILY HISTORY: Hypertension. SOCIAL HISTORY: Prior smoker, quit many years ago. Denies any recent sick contacts or travel. PHYSICAL EXAMINATION: Vitals: T max is 101.5, pulse is 81, respirations 26, blood pressure 167/81, O2 sat 95-97% on BiPAP and 100% FiO2. General: Morbidly obese female, is lying in bed, appears tachypneic and some mild accessory respiratory muscle use but is speaking in short sentences. HEENT: Normocephalic, atraumatic. Pupils are reactive to light. Moist mucous membranes noted. Neck: Supple, unable to appreciate JVD with neck habitus. Cardiac: Diminished heart sounds with regular rate and rhythm and normal S-1, S-2, no appreciable murmurs. Pulmonary: Decreased breath sounds bilaterally with some coughing with exam and occasional rhonchi. No wheezing or rales. Abdomen: Obese, soft, nontender, nondistended. No palpable organomegaly. Extremities: There is no significant lower extremity edema bilaterally. LABS: WBC 9.6, hemoglobin 14.1, platelets are 148. Chemistries: Sodium is 136, potassium 4.4, chloride is 104, bicarb is 20, BUN 23, creatinine 1.23, glucose is 128, CRP is 18.4, ferritin is 120.4. AST 67, ALT 41, alk phos is 40, LDH is 1029, albumin is 2.9. Procalcitonin is pending. Initial troponin is greater than 200. Lactic acid is 1.8. Initial ABG: pH is 7.371, pCO2 of 33.8, pO2 of 48.7. Repeat ABG on BiPAP: pH is 7.394, pCO2 of 33.8, pO2 of 88.8. IMAGING: CTA shows no evidence of PE. There are diffuse bilateral ground-glass opacities and denser areas of consolidation mostly in the lower lobes. There is some reactive mediastinal and hilar adenopathy noted. ASSESSMENT AND PLAN: Miss Cast is a 56-year-old female with a history of hypertension, asthma with prior nicotine dependence, DORINDA on CPAP who presented with acute hypoxemic respiratory failure in the setting of COVID-19 pneumonia. 1. Acute hypoxemic respiratory failure in the setting of COVID-19 pneumonia with possible superimposed bacterial pneumonia given fever and some areas of denser consolidation on imaging. Patient was initially hypoxic in the ED on CPAP. She was changed to BiPAP and has improvement in her oxygenation on 100% FiO2. It appeared she was on CPAP of 10 in the ED and she reports her home setting of CPAP of 13 cm H2O. She was changed to CPAP at 13 cm H2O and decreased to FiO2 of 80% and has been maintaining her O2 sats above 90%. We will continue with CPAP at the current setting and if there are no further episodes of desaturation, can change patient to her home CPAP which she did bring tomorrow. Cont to wean down FiO2 as tolerated. Patient was started on remdesivir for her COVID-19 pneumonia for her acute hypoxemic respiratory failure. She was also started on dexamethasone and baricitinib. She did have elevated inflammatory markers but her CRP and ferritin were not elevated to the point that cytokine storm was considered. Given her history of asthma, she was started on dexamethasone 6 mg b.i.d. Continue with Pulmicort and albuterol inhaler. Patient is on ceftriaxone and azithromycin for possible superimposed community acquired pneumonia. She did have a fever initially. Her procalcitonin is pending. If procalcitonin is negative, would rapidly de-escalate and consider discontinuing antibiotics. Patient had no evidence of PE on imaging. Given her morbid obesity, would treat her with the higher weight based prophylaxis given her increased risk of coagulability with her severe COVID-19 pneumonia. Patient was instructed on the importance of awake pronation. She states she is usually a stomach sleeper and so is willing to awake prone while wearing her CPAP. 2. Troponinemia. Likely in the setting of her infection and inflammatory state. Her initial EKG did not show any concerning ST changes. A BNP was ordered and we will continue to monitor troponins. Echocardiogram was also ordered. Code Status: DNR/DNI. DVT prophylaxis: Lovenox. Total critical care time spent not including procedures approximately 1 hour and 15 minutes. MTDD
[2021-10-13] VITALS (7 sets, daily range): BP systolic 141–158; BP diastolic 76–87; O2SAT 91–94
[2021-10-13 01:16] LABS: CK-MB VALUE MASS 2.6 NG/ML (<3.6)
[2021-10-13 05:20] LABS: BASO % 0.3 % (0.0-1.0); HEMATOCRIT 36.3 % (36.0-47.0); LYMPH # 0.8 10^3/uL (1.5-5.0); LYMPH % 10.9 % (24.0-44.0); MEAN CORPUSCULAR HEMOGLOBIN 29.6 pg (27.0-33.0); MEAN CORPUSCULAR HGB CONC 33.3 g/dl (32.0-36.5); MEAN CORPUSCULAR VOLUME 88.8 fl (80.0-96.0); MONO # 0.2 10^3/uL (0.0-0.8); MONO % 2.4 % (2.0-8.0); NEUTROPHILS # 5.8 10^3/uL (1.5-8.5); PLATELET COUNT, AUTOMATED 146 10^3/uL (150-450); RED BLOOD COUNT 4.09 10^6/uL (4.00-5.40)
[2021-10-13 05:21] LABS: HEMOGLOBIN 12.1 g/dl (12.0-15.5)
[2021-10-13] MEDS: ENOXAPARIN 120MG/0.8ML SYRINGE (J1650 PER 10MG) SC SCH ×2 (05:46→19:00)
[2021-10-13 05:52] LABS: ALBUMIN 2.3 GM/DL (3.2-5.2); ALT/SGPT 32 U/L (12-78); BILIRUBIN,DIRECT 0.2 MG/DL (0.0-0.2); BILIRUBIN,TOTAL 0.3 MG/DL (0.2-1.0); BLOOD UREA NITROGEN 23 MG/DL (7-18); CALCIUM LEVEL 8.1 MG/DL (8.5-10.1); CARBON DIOXIDE LEVEL 22 MEQ/L (21-32); CHLORIDE LEVEL 109 MEQ/L (98-107); GLOMERULAR FILTRATION RATE > 60.0 (>51); GLUCOSE, FASTING 135 MG/DL (70-100); MAGNESIUM LEVEL 2.5 MG/DL (1.8-2.4); POTASSIUM SERUM 4.4 MEQ/L (3.5-5.1); SODIUM LEVEL 140 MEQ/L (136-145); TOTAL PROTEIN 6.6 GM/DL (6.4-8.2)
[2021-10-13] MEDS: BUDESONIDE 0.5 MG/2 ML INHALATION SUSPENSION INH SCH ×2 (07:40→18:08)
[2021-10-13] MEDS: CETIRIZINE (ZyrTEC) 10 MG TAB PO SCH (09:00)
[2021-10-13] MEDS: PANTOPRAZOLE 40MG TAB (PROTONIX) PO SCH ×2 (09:31→21:05)
[2021-10-13] MEDS: BARICITINIB 2MG TABLET (OLUMIANT) FOR EUA PO SCH (09:33)
[2021-10-13] MEDS: LOSARTAN 50MG TABLET PO SCH (09:33)
[2021-10-13] MEDS: hydroCHLOROthiazide 12.5 MG CAPSULE PO SCH (09:33)
[2021-10-13] MEDS: ZINC SULFATE 220 MG CAP PO SCH (09:33)
[2021-10-13] MEDS: dexameTHASONE 4 MG/ML 1ML VIAL (J1100 PER 1MG) IV SCH ×2 (09:34→21:06)
--- NOTE | 2021-10-13 11:59 | IPNPDOC ---
Text Note Date of Service The patient was seen on 10/13/21. NOTE SUBJECTIVE: -Now off BiPAP and was placed on her home CPAP at 13cm which is her home setting. This morning when I saw her she was on a nasal canula 8L and proning. -She did ask for hydroxychloroquine and invermectin and was worried about the deleterious effects of remdesevir but I explained the high risk with no benefit effects of hydroxychloroquine and ivermectin against covid and that her heart was already under severe stress with elevated troponin from the profound inf lammation and prolonged hypoxia due to covid and it makes the most sense to take proven medications to treat her condition. OBJECTIVE: Vitals: see below General: NAD, laying prone, nasal canula in place HEENT: NCAT, EOMI, MMM PULM: Continues to be diminished but moving air better than she was yesterday, no wheezing, no crackles, on 8L NC CARDIAC: distant but RRR, no m/r/g Abd: Obese, normoactive bowel sounds, NTND Ext: WWP, no LE edema Neuro: grossly nonfocal examination Psych: AOx3 Labs: Reviewed Imaging: Assessment: 56 year old W with hypertension and DORINDA on CPAP, asthma and HTN who presented to [facility] ER due to 2 days of worsening of dyspnea that had started 2w prior with fevers, generalized weakness, cough and diagnosed with COVID 19 PNA, acute hypoxemic respiratory failure. #Acute hypoxemic respiratory failure 2/2 COVID pneumonia vs superimposed bacteria pneumonia -Presented saturating 71% on room air and was placed on BiPAP for WOB with pure hypoxemia on ABG, now on CPAP and NC when awake -Pulm consulted -Day 2 of IV Dexamethasone, IV Remdesivir, and IV Bariticumab -60mg Q12H Levonox for DVT ppx as patient has COVID with BMI>35 -continue Ceftriaxone and Azithromycin for empiric therapy for superimposed bacteria pneumonia. Pending procal -continue home mdi's #Troponinemia likely 2/2 a combination of demand ischemia given profound hypoxemia at presentation and duration of home illness vs. inflammation given elevated markers -Patient's high sensitive troponin>200, EKG from 1245 on 10/12/2021 was reviewed which showed no ST elevation or depression and she has no chest pain -The above was discussed between attending and on-call legal consultant Dr. Al on 10/12/2021 afternoon, who advised the troponinemia is likely due to demand ischemia. -Echo showed no wall motion abnormality, normal EF, small pericardial effusion and elevated pulmonary pressures -No Aspirin as patient has allergic reaction to Aspirin -Continue telemetry -lovenox BID, no ASA is allergic #DANIE -GFR 47.7 with baseline GFR>60 -s/p IVF -monitor BMP daily #Hypertension -Blood pressure roughly stable now -Holding home medication Losartan and HCTZ, as Cr was elevated at presentation. Will restart as indicated #GERD -Continue home med Pantoprazole CODE STATUS: DNR/DNI DVT prophylaxis: Lovenox 60mg BID VS,Fishbone, I+O VS, Fishbone, I+O Laboratory Tests 10/12/21 12:47 10/12/21 15:41 10/13/21 04:42 Vital Signs Date Time Temp Pulse Resp B/P (MAP) Pulse Ox O2 Delivery O2 Flow Rate FiO2 10/13/21 09:33 141/81 10/13/21 08:00 15.0 10/13/21 08:00 97.9 87 24 88 High Flow Cannula 10/13/21 07:43 50 I&O- Last 24 Hours up to 6 AM 10/13/21 06:00 Intake Total 2060 ml Output Total 1315 ml Balance 745 ml LEEANNA DEGROOT MD Oct 13, 2021 11:59
--- NOTE | 2021-10-13 13:41 | ECGEPIP ---
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 Electronically Signed on 10-13-2021 13:41:22 EST by Christopher Al
--- NOTE | 2021-10-13 16:37 | ECGEPIP ---
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
[2021-10-13] MEDS: cefTRIAXone SOD 1 GM in D5W MINI-BAG PLUS 50 ML IV SCH (16:41)
[2021-10-13] MEDS: REMDESIVIR 100 MG in NS 250 ML IV SCH (17:44)
[2021-10-13] MEDS: SODIUM CHLORIDE 0.9% INJ 10 ML SYR IV SCH (19:26)
[2021-10-13] MEDS: AZITHROMYCIN INJ 500 MG, VIAL MATE ADAPTER 1 EACH in NS 250 ML IV SCH (21:06)
[2021-10-14] VITALS (8 sets, daily range): BP systolic 163–169; BP diastolic 72–78; O2SAT 91–97
[2021-10-14] MEDS: ENOXAPARIN 120MG/0.8ML SYRINGE (J1650 PER 10MG) SC SCH ×2 (05:56→18:03)
[2021-10-14] MEDS: BUDESONIDE 0.5 MG/2 ML INHALATION SUSPENSION INH SCH ×2 (07:34→20:34)
[2021-10-14 07:55] LABS: BASO # 0.1 10^3/uL (0.0-0.2); BASO % 0.4 % (0.0-1.0); HEMATOCRIT 36.7 % (36.0-47.0); HEMOGLOBIN 12.2 g/dl (12.0-15.5); LYMPH # 1.2 10^3/uL (1.5-5.0); LYMPH % 10.4 % (24.0-44.0); MEAN CORPUSCULAR HEMOGLOBIN 29.5 pg (27.0-33.0); MEAN CORPUSCULAR HGB CONC 33.2 g/dl (32.0-36.5); MEAN CORPUSCULAR VOLUME 88.9 fl (80.0-96.0); MONO # 0.6 10^3/uL (0.0-0.8); MONO % 5.1 % (2.0-8.0); NEUTROPHILS % 79.9 % (36.0-66.0); PLATELET COUNT, AUTOMATED 210 10^3/uL (150-450); RED BLOOD COUNT 4.13 10^6/uL (4.00-5.40); WHITE BLOOD COUNT 11.2 10^3/uL (4.0-10.0)
[2021-10-14 08:08] LABS: INR 1.43; PROTHROMBIN TIME 17.9 SECONDS (12.7-14.5)
[2021-10-14 08:09] LABS: PARTIAL THROMBOPLASTIN TIME 36.8 SECONDS (25.9-37.0)
[2021-10-14 08:38] LABS: ALBUMIN 2.3 GM/DL (3.2-5.2); ALT/SGPT 29 U/L (12-78); BILIRUBIN,DIRECT 0.2 MG/DL (0.0-0.2); BILIRUBIN,TOTAL 0.4 MG/DL (0.2-1.0); BLOOD UREA NITROGEN 28 MG/DL (7-18); CALCIUM LEVEL 8.2 MG/DL (8.5-10.1); CARBON DIOXIDE LEVEL 25 MEQ/L (21-32); CHLORIDE LEVEL 111 MEQ/L (98-107); CREATININE FOR GFR 0.79 MG/DL (0.55-1.30); FERRITIN 983 NG/ML (8-252); GLOMERULAR FILTRATION RATE > 60.0 (>51); GLUCOSE, FASTING 134 MG/DL (70-100); LDH LACTATE DEHYDROGENASE 767 U/L (84-246); MAGNESIUM LEVEL 2.5 MG/DL (1.8-2.4); NT-PRO BNP 4943 PG/ML (<125); SODIUM LEVEL 144 MEQ/L (136-145); TOTAL PROTEIN 6.2 GM/DL (6.4-8.2)
[2021-10-14] MEDS: BARICITINIB 2MG TABLET (OLUMIANT) FOR EUA PO SCH (08:45)
[2021-10-14] MEDS: hydroCHLOROthiazide 12.5 MG CAPSULE PO SCH (08:48)
[2021-10-14] MEDS: PANTOPRAZOLE 40MG TAB (PROTONIX) PO SCH ×2 (08:48→20:13)
[2021-10-14] MEDS: ZINC SULFATE 220 MG CAP PO SCH (08:48)
[2021-10-14] MEDS: LOSARTAN 50MG TABLET PO SCH (08:48)
[2021-10-14] MEDS: CETIRIZINE (ZyrTEC) 10 MG TAB PO SCH ×2 (08:48→09:00)
[2021-10-14] MEDS: dexameTHASONE 4 MG/ML 1ML VIAL (J1100 PER 1MG) IV SCH ×2 (08:55→20:12)
[2021-10-14] MEDS ORDERED: BARICITINIB 2MG TABLET (OLUMIANT) FOR EUA PO ONE (11:15)
--- NOTE | 2021-10-14 15:54 | IPNPDOC ---
Text Note Date of Service The patient was seen on 10/14/21. NOTE SUBJECTIVE: -On CPAP at 13cm which is her home setting, otherwise on nasal canula 10L today and proning. -Was worried about her dose increase of baracitinib and if that would be bad for her health and I explained that it was increased because her GFR improved. OBJECTIVE: Vitals: see below General: NAD, laying prone, nasal canula in place HEENT: NCAT, EOMI, MMM PULM: Continues to be diminished but moving air better than she was yesterday, no wheezing, no crackles, on 10L NC CARDIAC: distant but RRR, no m/r/g Abd: Obese, normoactive bowel sounds, NTND Ext: WWP, no LE edema Neuro: grossly nonfocal examination Psych: AOx3 Labs: Reviewed Imaging: Reviewed Assessment: 56 year old W with hypertension and DORINDA on CPAP, asthma and HTN who presented to [facility] ER due to 2 days of worsening of dyspnea that had started 2w prior with fevers, generalized weakness, cough and diagnosed with COVID 19 PNA, acute hypoxemic respiratory failure. #Acute hypoxemic respiratory failure 2/2 COVID pneumonia vs superimposed bacteria pneumonia -Presented saturating 71% on room air and was placed on BiPAP for WOB with pure hypoxemia on ABG, now on CPAP and NC when awake -Pulm consulted -Day 3 of IV Dexamethasone, IV Remdesivir, and IV Bariticumab -60mg Q12H Levonox for DVT ppx as patient has COVID with BMI>35 -continue Ceftriaxone and Azithromycin for empiric therapy for superimposed bacteria pneumonia. -continue home mdi's #Troponinemia likely 2/2 a combination of demand ischemia given profound hypoxemia at presentation and duration of home illness vs. inflammation given elevated markers. Now downtrending. -Patient's high sensitive troponin>200, EKG from 1245 on 10/12/2021 was reviewed which showed no ST elevation or depression and she has no chest pain -The above was discussed between attending and on-call senior network systems engineer Dr. Al on 10/12/2021 afternoon, who advised the troponinemia is likely due to demand ischemia. -Echo showed no wall motion abnormality, normal EF, small pericardial effusion and elevated pulmonary pressures -No Aspirin as patient has allergic reaction to Aspirin -Continue telemetry -lovenox BID, no ASA is allergic #DANIE -GFR 47.7 with baseline GFR>60 -s/p IVF -monitor BMP daily #Hypertension -Blood pressure roughly stable now -Holding home medication Losartan and HCTZ, as Cr was elevated at presentation. Will restart as indicated #GERD -Continue home med Pantoprazole CODE STATUS: DNR/DNI DVT prophylaxis: Lovenox 60mg BID VS,Fishbone, I+O VS, Fishbone, I+O Laboratory Tests 10/14/21 06:51 Vital Signs Date Time Temp Pulse Resp B/P (MAP) Pulse Ox O2 Delivery O2 Flow Rate FiO2 10/14/21 14:00 98.6 63 20 169/72 (104) 94 NIPPV (BIPAP/CPAP) 10.0 10/13/21 18:08 50 I&O- Last 24 Hours up to 6 AM 10/14/21 06:00 Intake Total 910 ml Output Total 1710 ml Balance -800 ml LEEANNA DEGROOT MD Oct 14, 2021 15:54
[2021-10-14] MEDS: cefTRIAXone SOD 1 GM in D5W MINI-BAG PLUS 50 ML IV SCH (17:16)
[2021-10-14] MEDS: REMDESIVIR 100 MG in NS 250 ML IV SCH (18:04)
[2021-10-14] MEDS: SODIUM CHLORIDE 0.9% INJ 10 ML SYR IV SCH (20:12)
[2021-10-14] MEDS: AZITHROMYCIN INJ 500 MG, VIAL MATE ADAPTER 1 EACH in NS 250 ML IV SCH (20:13)
[2021-10-15 04:00] VITALS: BP 171/74
[2021-10-15] MEDS: ENOXAPARIN 120MG/0.8ML SYRINGE (J1650 PER 10MG) SC SCH (05:48)
[2021-10-15] MEDS: BUDESONIDE 0.5 MG/2 ML INHALATION SUSPENSION INH SCH ×2 (07:59→20:28)
[2021-10-15 09:03] LABS: HEMATOCRIT 38.4 % (36.0-47.0); HEMOGLOBIN 12.7 g/dl (12.0-15.5); MEAN CORPUSCULAR HEMOGLOBIN 29.9 pg (27.0-33.0); MEAN CORPUSCULAR HGB CONC 33.1 g/dl (32.0-36.5); MEAN CORPUSCULAR VOLUME 90.4 fl (80.0-96.0); PLATELET COUNT, AUTOMATED 194 10^3/uL (150-450); RED BLOOD COUNT 4.25 10^6/uL (4.00-5.40); WHITE BLOOD COUNT 10.8 10^3/uL (4.0-10.0)
[2021-10-15 09:29] LABS: BLOOD UREA NITROGEN 27 MG/DL (7-18); CALCIUM LEVEL 8.4 MG/DL (8.5-10.1); CARBON DIOXIDE LEVEL 28 MEQ/L (21-32); CHLORIDE LEVEL 108 MEQ/L (98-107); CREATININE FOR GFR 0.78 MG/DL (0.55-1.30); GLOMERULAR FILTRATION RATE > 60.0 (>51); GLUCOSE, FASTING 144 MG/DL (70-100); MAGNESIUM LEVEL 2.5 MG/DL (1.8-2.4); POTASSIUM SERUM 3.8 MEQ/L (3.5-5.1); SODIUM LEVEL 143 MEQ/L (136-145)
[2021-10-15] MEDS: BARICITINIB 2MG TABLET (OLUMIANT) FOR EUA PO SCH (09:41)
[2021-10-15] MEDS: CETIRIZINE (ZyrTEC) 10 MG TAB PO SCH (09:42)
[2021-10-15] MEDS: ZINC SULFATE 220 MG CAP PO SCH (09:42)
[2021-10-15] MEDS: dexameTHASONE 4 MG/ML 1ML VIAL (J1100 PER 1MG) IV SCH ×2 (09:42→21:58)
[2021-10-15] MEDS: hydroCHLOROthiazide 12.5 MG CAPSULE PO SCH (09:42)
[2021-10-15] MEDS: PANTOPRAZOLE 40MG TAB (PROTONIX) PO SCH ×2 (09:42→21:58)
[2021-10-15] MEDS: LOSARTAN 50MG TABLET PO SCH (09:44)
[2021-10-15 10:02] LABS: LYMPHOCYTES 9 % (16-44); MONOCYTES 8 % (0-5); NEUTROPHILS 82 % (28-66); PLATELET ESTIMATE NORMAL (NORMAL)
--- NOTE | 2021-10-15 10:10 | CCN ---
CRITICAL CARE PROGRESS NOTE DATE: 10/13/2021 SUBJECTIVE: The patient was seen and examined this morning during bedside rounds. The patient was continued on CPAP overnight. She was able to wean down on her FiO2 to 50%. She did spend most of her night proning as she states at home she is generally a belly sleeper. She did report some more difficulty with the full face mask that she uses pillows on her home machine. She otherwise states her breathing is improving. She does have some shortness of breath still particularly with exertion. She has only very occasional cough with minimal mucous production. She denies any chest pain currently. She has not had any nausea or vomiting. OBJECTIVE: PHYSICAL EXAMINATION: VITAL SIGNS: Temperature 98.2, pulse of 68, respirations 24, blood pressure 150/81, O2 sat 94% on CPAP at 50% FiO2. INTAKE AND OUTPUT: In's 1.2 liters, output is 975 mL. GENERAL APPEARANCE: The patient is a morbidly obese female. She is lying in bed and appears slightly tachypneic but is speaking in complete sentences currently. HEENT: Normocephalic and atraumatic. Pupils are reactive to light bilaterally. Moist mucous membranes noted. NECK: Supple, unable to appreciate jugular venous distention with neck habitus. CARDIAC: Diminished heart sounds with regular rate and rhythm. Normal S1, S2. Unable to clearly appreciate any murmurs. PULMONARY: Decreased breath sounds bilaterally, although improved air movement. No significant wheezing, rales or rhonchi. ABDOMEN: Obese, soft, nontender, nondistended. No palpable organomegaly. EXTREMITIES: There is no significant lower extremity edema bilaterally. LABORATORY STUDIES: WBC count is 7.0, hemoglobin is 12.1, platelet count 146. Chemistries - sodium is 140, potassium is 4.0, chloride is 109, bicarbonate 22, BUN 23, creatinine 0.90, glucose 135. Calcium is 8.1, magnesium is 2.5, AST and ALT are 93 and 32. Albumin is 2.3. CKMB is 2.6, troponin is greater than 200. ASSESSMENT AND PLAN: Mrs. Cast is a 56-year-old female a history of hypertension, asthma with prior nicotine dependence, obstructive sleep apnea on CPAP, who presented with acute hypoxemic respiratory failure in the setting of COVID-19 pneumonia. Acute hypoxic respiratory failure in the setting of COVID-19 pneumonia with possible superimposed bacterial pneumonia given fever and some areas of denser consolidation on imaging. The patient has been continued on CPAP at her home setting of 13 cm H20 overnight. She was initially on 80% FiO2 and overnight has been able to be weaned down to 50% FiO2. She did spend most of her night proning, as she states at home she is generally a belly sleeper. We will change the patient to tabletop CPAP with 5-6 liter 02 bleed as needed to maintain 02 sat above 90%. She would prefer to use her home CPAP, however would need to get an adapter to allow supplemental oxygen administration. The patient will continue with awake pronation during the day. The patient was able to be weaned to nasal cannula oxygen with the high flow at 10-15 liters per minute and maintain her 02 sats above 88%. Continue with Remdesivir and Dexamethasone as well as Baricitinib for her COVID-19 pneumonia with acute hypoxic respiratory failure. Continue with Pulmicort for maintenance inhaler and with Albuterol for an as-needed bronchodilator. The patient is on Ceftriaxone and Azithromycin for a possible superimposed community acquired pneumonia. Would follow up with her procalcitonin and if negative, would rapidly deescalate or consider a very short course of antibiotics and discontinuing. The patient had no evidence of P.E. on imaging. With her morbid obesity and with her increased inflammatory state, would continue her with the weight based prophylaxis with Lovenox 0.5 mg per kg twice daily. CODE STATUS: DNR/DNI. DVT PROPHYLAXIS: Lovenox. Total critical care time spent not including procedures approximately 45 minutes. Please do not hesitate to call if any further questions or concerns.
[2021-10-15 16:00] VITALS: BP 166/70
--- NOTE | 2021-10-15 16:18 | IPNPDOC ---
Subjective Date Seen The patient was seen on 10/15/21. Subjective Chief Complaint/HPI No acute events overnight. Does not have any complaints this morning. Continues to be on 10 L with CPAP. Objective Physical Examination General Exam: Positive: Alert, Cooperative, No Acute Distress, Other (On CPAP) Eye Exam: Positive: Conjunctiva & lids normal; Negative: Sclera icteric ENT Exam: Positive: Atraumatic, Mucous membr. moist/pink Neck Exam: Positive: Supple Chest Exam: Positive: Diminished (Diminished lung sounds throughout), Other (Fine diffuse crackles); Negative: Normal air movement, Rales, Wheezing Heart Exam: Positive: Rate Normal, Regular Rhythm; Negative: Murmurs Telemetry: Positive: Sinus Abdomen Exam: Positive: Normal bowel sounds, Soft, Other (Obese); Negative: Tenderness Extremity Exam: Negative: Edema, Tenderness, Swelling Skin Exam: Positive: Nl turgor and temperature; Negative: Breakdown Neuro Exam: Positive: Normal Speech, Strength at 5/5 X4 ext, Normal Tone Psych Exam: Positive: Memory Intact, Oriented x 3 Assessment /Plan Assessment 56 year old W with hypertension and DORINDA on CPAP, asthma and HTN who presented to [facility] ER due to 2 days of worsening of dyspnea that had started 2w prior with fevers, generalized weakness, cough and diagnosed with COVID 19 PNA, acute hy poxemic respiratory failure. Covid pneumonia with acute hypoxemic respiratory failure Continue IV Dexamethasone, IV Remdesivir, and Po Bariticumab and Lovenox twice daily No Aspirin as patient has allergic reaction to Aspirin Antibiotics stopped as procalcitonin is negative Currently using CPAP with 10 L and needing 15 L through nonrebreathing mask during breaks Elevated troponins on admission likely 2/2 a combination of demand ischemia given profound hypoxemia at presentation and duration of home illness vs. inflammation given elevated markers. Now downtrending. No EKG changes or chest pain The above was discussed between attending and on-call deputy county attorney Dr. Al on 10/12/2021 afternoon, who advised the troponinemia is likely due to demand ischemia. Echo showed no wall motion abnormality, normal EF, small pericardial effusion and elevated pulmonary pressures DANIE Resolved Morbid obesity with a BMI of 47.9 and DORINDA Continue CPAP At home does not need any oxygen with CPAP Hypertension Continue losartan and hydrochlorothiazide Asthma Continue budesonide albuterol dexamethasone GERD Continue PPI Plan/VTE VTE Prophylaxis Ordered?: Yes VS, I&O, 24H, Fernandobonsherman Vital Signs/I&O Vital Signs Date Time Temp Pulse Resp B/P (MAP) Pulse Ox O2 Delivery O2 Flow Rate FiO2 10/15/21 08:00 10.0 10/15/21 04:00 97.0 80 20 171/74 (106) 96 NIPPV (BIPAP/CPAP) 10/13/21 18:08 50 I&O- Last 24 Hours up to 6 AM 10/15/21 06:00 Intake Total 1310 ml Output Total 2500 ml Balance -1190 ml Laboratory Data 24H LABS Laboratory Tests 2 10/15/21 08:12: Immature Granulocyte % (Auto) , Neutrophils (%) (Auto) , Nucleated Red Blood Cells % (auto) 0.2H, Neutrophils 82H, Band Neutrophils 1, Lymphocytes (Manual) 9L, Monocytes (Manual) 8H, Platelet Estimate NORMAL, Anion Gap 7L, Glomerular Filtration Rate > 60.0, Calcium Level 8.4L, Magnesium Level 2.5H CBC/BMP Laboratory Tests 10/15/21 08:12 Microbiology Microbiology 10/12/21 Blood Culture - Preliminary, Resulted No Growth after 72 hours. All specime... 10/12/21 Respiratory Virus Panel (PCR) ([facility]) - Final, Complete SARS-CoV-2 (COVID 19) 10/12/21 Blood Culture - Preliminary, Resulted No Growth after 72 hours. All specime... Shira Phan MD Oct 15, 2021 16:18
[2021-10-15] MEDS: REMDESIVIR 100 MG in NS 250 ML IV SCH (17:06)
[2021-10-15] MEDS: ENOXAPARIN 60MG/0.6ML SYRINGE (J1650 PER 10MG) SC SCH (17:06)
[2021-10-15] MEDS: SODIUM CHLORIDE 0.9% INJ 10 ML SYR IV SCH (18:14)
[2021-10-15 20:00] VITALS: O2SAT 98
[2021-10-15 22:00] VITALS: BP 162/69
[2021-10-16] VITALS: O2SAT 97
[2021-10-16] MEDS: ENOXAPARIN 60MG/0.6ML SYRINGE (J1650 PER 10MG) SC SCH ×2 (05:02→17:52)
[2021-10-16 05:04] VITALS: BP 168/73
[2021-10-16] MEDS: BUDESONIDE 0.5 MG/2 ML INHALATION SUSPENSION INH SCH ×2 (07:36→19:19)
[2021-10-16 07:37] LABS: INR 1.3; PARTIAL THROMBOPLASTIN TIME 35.9 SECONDS (25.9-37.0); PROTHROMBIN TIME 16.6 SECONDS (12.7-14.5)
[2021-10-16 07:59] LABS: ALBUMIN 2.5 GM/DL (3.2-5.2); BILIRUBIN,DIRECT 0.2 MG/DL (0.0-0.2); BILIRUBIN,TOTAL 0.7 MG/DL (0.2-1.0); TOTAL PROTEIN 6.5 GM/DL (6.4-8.2)
[2021-10-16] MEDS: dexameTHASONE 4 MG/ML 1ML VIAL (J1100 PER 1MG) IV SCH ×2 (08:59→20:40)
[2021-10-16] MEDS: BARICITINIB 2MG TABLET (OLUMIANT) FOR EUA PO SCH (08:59)
[2021-10-16] MEDS: hydroCHLOROthiazide 12.5 MG CAPSULE PO SCH (09:00)
[2021-10-16] MEDS: PANTOPRAZOLE 40MG TAB (PROTONIX) PO SCH ×2 (09:00→20:40)
[2021-10-16] MEDS: ZINC SULFATE 220 MG CAP PO SCH (09:00)
[2021-10-16] MEDS: CETIRIZINE (ZyrTEC) 10 MG TAB PO SCH (09:00)
[2021-10-16] MEDS: LOSARTAN 50MG TABLET PO SCH (09:01)
--- NOTE | 2021-10-16 12:45 | IPNPDOC ---
Subjective Date Seen The patient was seen on 10/16/21. Subjective Chief Complaint/HPI No change in respiratory status remains on CPAP with 10 L or 15 L nonrebreather. Objective Physical Examination General Exam: Positive: Alert, Cooperative, No Acute Distress, Other (On CPAP) Eye Exam: Positive: Conjunctiva & lids normal; Negative: Sclera icteric ENT Exam: Positive: Atraumatic, Mucous membr. moist/pink Neck Exam: Positive: Supple Chest Exam: Positive: Diminished (Diminished lung sounds throughout), Other (Fine diffuse crackles); Negative: Normal air movement, Rales, Wheezing Heart Exam: Positive: Rate Normal, Regular Rhythm; Negative: Murmurs Telemetry: Positive: Sinus Abdomen Exam: Positive: Normal bowel sounds, Soft, Other (Obese); Negative: Tenderness Extremity Exam: Negative: Edema, Tenderness, Swelling Skin Exam: Positive: Nl turgor and temperature; Negative: Breakdown Neuro Exam: Positive: Normal Speech, Strength at 5/5 X4 ext, Normal Tone Psych Exam: Positive: Memory Intact, Oriented x 3 Assessment /Plan Assessment 56 year old W with hypertension and DORINDA on CPAP, asthma and HTN who presented to [facility] ER due to 2 days of worsening of dyspnea that had started 2w prior with fevers, generalized weakness, cough and diagnosed with COVID 19 PNA, acute hypoxemic respiratory failure. Covid pneumonia with acute hypoxemic respiratory failure Continue IV Dexamethasone, IV Remdesivir, and Po Bariticumab and Lovenox twice daily No Aspirin as patient has allergic reaction to Aspirin Antibiotics stopped as procalcitonin is negative Currently using CPAP with 10 L and needing 15 L through nonrebreathing mask during breaks Elevated troponins on admission likely 2/2 a combination of demand ischemia given profound hypoxemia at presentation and duration of home illness vs. inflammation given elevated markers. Now downtrending. No EKG changes or chest pain The above was discussed between attending and on-call stone breaker Dr. Al on 10/12/2021 afternoon, who advised the troponinemia is likely due to demand ischemia. Echo showed no wall motion abnormality, normal EF, small pericardial effusion and elevated pulmonary pressures DANIE Resolved Morbid obesity with a BMI of 47.9 and DORINDA Continue CPAP At home does not need any oxygen with CPAP Hypertension Continue losartan and hydrochlorothiazide Asthma Continue budesonide albuterol dexamethasone GERD Continue PPI Plan/VTE VTE Prophylaxis Ordered?: Yes VS, I&O, 24H, Fishbone Vital Signs/I&O Vital Signs Date Time Temp Pulse Resp B/P (MAP) Pulse Ox O2 Delivery O2 Flow Rate FiO2 10/16/21 09:37 84 NIPPV (BIPAP/CPAP) 10.0 10/16/21 09:01 168/73 10/16/21 05:04 97.6 47 16 10/13/21 18:08 50 I&O- Last 24 Hours up to 6 AM 10/16/21 06:00 Intake Total 480 ml Output Total 1925 ml Balance -1445 ml Laboratory Data 24H LABS Laboratory Tests 2 10/16/21 06:56: Prothrombin Time 16.6H, Prothromb Time International Ratio 1.30, Activated Partial Thromboplast Time 35.9, Fibrinogen 149L, Ferritin 982H, Total Bilirubin 0.7#, Direct Bilirubin 0.2, Aspartate Amino Transf (AST/SGOT) 65H, Alanine Aminotransferase (ALT/SGPT) 72, Alkaline Phosphatase 44L, Lactate Dehydrogenase 714H, Total Creatine Kinase 52, Troponin I High Sensitivity 39.0, AW-Gns-T-Type Natriuretic Peptide 1578H, Total Protein 6.5, Albumin 2.5L, Albumin/Globulin Ratio 0.6L, Procalcitonin <0.05 Microbiology Microbiology 10/12/21 Blood Culture - Preliminary, Resulted No Growth after 72 hours. All specime... 10/12/21 Respiratory Virus Panel (PCR) ([facility]) - Final, Complete SARS-CoV-2 (COVID 19) 10/12/21 Blood Culture - Preliminary, Resulted No Growth after 72 hours. All specime... Shira Phan MD Oct 16, 2021 12:45
[2021-10-16 14:00] VITALS: BP_SYST 162; BP_SYST 178; BP_DIAS 70; BP_DIAS 78
[2021-10-16] MEDS: SODIUM CHLORIDE 0.9% INJ 10 ML SYR IV SCH (17:52)
[2021-10-16] MEDS: REMDESIVIR 100 MG in NS 250 ML IV SCH (17:52)
[2021-10-16 20:00] VITALS: BP 142/64
[2021-10-17] VITALS: BP 168/73
[2021-10-17 04:00] VITALS: BP 154/67
[2021-10-17] MEDS: ENOXAPARIN 60MG/0.6ML SYRINGE (J1650 PER 10MG) SC SCH ×2 (05:17→17:35)
[2021-10-17] MEDS: BUDESONIDE 0.5 MG/2 ML INHALATION SUSPENSION INH SCH ×2 (07:36→20:39)
[2021-10-17] MEDS: dexameTHASONE 4 MG/ML 1ML VIAL (J1100 PER 1MG) IV SCH ×2 (09:23→20:22)
[2021-10-17] MEDS: hydroCHLOROthiazide 12.5 MG CAPSULE PO SCH (09:24)
[2021-10-17] MEDS: BARICITINIB 2MG TABLET (OLUMIANT) FOR EUA PO SCH (09:24)
[2021-10-17] MEDS: CETIRIZINE (ZyrTEC) 10 MG TAB PO SCH (09:24)
[2021-10-17] MEDS: PANTOPRAZOLE 40MG TAB (PROTONIX) PO SCH ×2 (09:24→20:21)
[2021-10-17] MEDS: ZINC SULFATE 220 MG CAP PO SCH (09:24)
[2021-10-17] MEDS: LOSARTAN 50MG TABLET PO SCH (09:25)
[2021-10-17 14:00] VITALS: BP 120/56
--- NOTE | 2021-10-17 16:54 | IPNPDOC ---
Subjective Date Seen The patient was seen on 10/17/21. Subjective Chief Complaint/HPI No isues overngith. no complaints this am. Patient now requiring less oxygen with her CPAP. Objective Physical Examination General Exam: Positive: Alert, Cooperative, No Acute Distress, Other (On CPAP) Eye Exam: Positive: Conjunctiva & lids normal; Negative: Sclera icteric ENT Exam: Positive: Atraumatic, Mucous membr. moist/pink Neck Exam: Positive: Supple Chest Exam: Positive: Diminished (Diminished lung sounds throughout), Other (Fine diffuse crackles); Negative: Normal air movement, Rales, Wheezing Heart Exam: Positive: Rate Normal, Regular Rhythm; Negative: Murmurs Telemetry: Positive: Sinus Abdomen Exam: Positive: Normal bowel sounds, Soft, Other (Obese); Negative: Tenderness Extremity Exam: Negative: Edema, Tenderness, Swelling Skin Exam: Positive: Nl turgor and temperature; Negative: Breakdown Neuro Exam: Positive: Normal Speech, Strength at 5/5 X4 ext, Normal Tone Psych Exam: Positive: Memory Intact, Oriented x 3 Assessment /Plan Assessment 56 year old W with hypertension and DORINDA on CPAP, asthma and HTN who presented to [facility] ER due to 2 days of worsening of dyspnea that had started 2w prior with fevers, generalized weakness, cough and diagnosed with COVID 19 PNA with acute hypoxemic respiratory failure. Covid pneumonia with acute hypoxemic respiratory failure Continue IV Dexamethasone, IV Remdesivir, and Po Bariticumab and Lovenox twice daily No Aspirin as patient has allergic reaction to Aspirin Antibiotics stopped as procalcitonin is negative. Oxygenation has started to improve. Currently using CPAP with 6 liters. Elevated troponins on admission likely 2/2 a combination of demand ischemia given profound hypoxemia at presentation and duration of home illness vs. inflammation given elevated markers. Now downtrending. No EKG changes or chest pain The above was discussed between attending and on-call disk recoater Dr. Al on 10/12/2021 afternoon, who advised the troponinemia is likely due to demand ischemia. Echo showed no wall motion abnormality, normal EF, small pericardial effusion and elevated pulmonary pressures DANIE Resolved Morbid obesity with a BMI of 47.9 and DORINDA Continue CPAP At home does not need any oxygen with CPAP Hypertension Continue losartan and hydrochlorothiazide Asthma Continue budesonide albuterol dexamethasone GERD Continue PPI Plan/VTE VTE Prophylaxis Ordered?: Yes VS, I&O, 24H, Fishbone Vital Signs/I&O Vital Signs Date Time Temp Pulse Resp B/P (MAP) Pulse Ox O2 Delivery O2 Flow Rate FiO2 10/17/21 04:00 96.0 52 19 154/67 (96) 96 NIPPV (BIPAP/CPAP) 6.0 10/13/21 18:08 50 I&O- Last 24 Hours up to 6 AM 10/17/21 06:00 Intake Total 740 ml Output Total 1700 ml Balance -960 ml Laboratory Data Microbiology Microbiology 10/12/21 Blood Culture - Preliminary, Resulted No Growth after 72 hours. All specime... 10/12/21 Respiratory Virus Panel (PCR) ([facility]) - Final, Complete SARS-CoV-2 (COVID 19) 10/12/21 Blood Culture - Preliminary, Resulted No Growth after 72 hours. All specime... Shira Phan MD Oct 17, 2021 08:24
[2021-10-17 22:00] VITALS: BP 127/61
[2021-10-18] MEDS: ENOXAPARIN 60MG/0.6ML SYRINGE (J1650 PER 10MG) SC SCH ×2 (05:03→17:41)
[2021-10-18 05:34] VITALS: BP 166/70
[2021-10-18] MEDS: BUDESONIDE 0.5 MG/2 ML INHALATION SUSPENSION INH SCH ×2 (07:53→19:45)
[2021-10-18 08:02] LABS: HEMATOCRIT 42.3 % (36.0-47.0); MEAN CORPUSCULAR HEMOGLOBIN 29.9 pg (27.0-33.0); MEAN CORPUSCULAR HGB CONC 33.1 g/dl (32.0-36.5); MEAN CORPUSCULAR VOLUME 90.2 fl (80.0-96.0); PLATELET COUNT, AUTOMATED 270 10^3/uL (150-450); RED BLOOD COUNT 4.69 10^6/uL (4.00-5.40); WHITE BLOOD COUNT 14.4 10^3/uL (4.0-10.0)
[2021-10-18 08:12] LABS: INR 1.21; PROTHROMBIN TIME 15.8 SECONDS (12.7-14.5)
[2021-10-18 08:13] LABS: PARTIAL THROMBOPLASTIN TIME 33.3 SECONDS (25.9-37.0)
[2021-10-18] MEDS: PANTOPRAZOLE 40MG TAB (PROTONIX) PO SCH ×2 (08:27→20:23)
[2021-10-18] MEDS: ZINC SULFATE 220 MG CAP PO SCH (08:27)
[2021-10-18] MEDS: BARICITINIB 2MG TABLET (OLUMIANT) FOR EUA PO SCH (08:28)
[2021-10-18] MEDS: CETIRIZINE (ZyrTEC) 10 MG TAB PO SCH ×2 (08:28→08:31)
[2021-10-18] MEDS: LOSARTAN 50MG TABLET PO SCH (08:28)
[2021-10-18] MEDS: hydroCHLOROthiazide 12.5 MG CAPSULE PO SCH (08:29)
[2021-10-18] MEDS: dexameTHASONE 4 MG/ML 1ML VIAL (J1100 PER 1MG) IV SCH ×2 (08:29→20:23)
[2021-10-18 08:30] LABS: ALBUMIN 2.7 GM/DL (3.2-5.2); BILIRUBIN,DIRECT 0.2 MG/DL (0.0-0.2); BILIRUBIN,TOTAL 0.7 MG/DL (0.2-1.0); TOTAL PROTEIN 6.4 GM/DL (6.4-8.2)
--- NOTE | 2021-10-18 11:21 | IPNPDOC ---
Subjective Date Seen The patient was seen on 10/18/21. Subjective Chief Complaint/HPI No acute issues overnight. Continues to require 6 L of oxygen through CPAP. Says that she is now coughing up some phlegm. No fever or chills. Objective Physical Examination General Exam: Positive: Alert, Cooperative, No Acute Distress, Other (On CPAP) Eye Exam: Positive: Conjunctiva & lids normal; Negative: Sclera icteric ENT Exam: Positive: Atraumatic, Mucous membr. moist/pink Neck Exam: Positive: Supple Chest Exam: Positive: Diminished (Diminished lung sounds throughout), Other (Fine diffuse crackles); Negative: Normal air movement, Rales, Wheezing Heart Exam: Positive: Rate Normal, Regular Rhythm; Negative: Murmurs Telemetry: Positive: Sinus Abdomen Exam: Positive: Normal bowel sounds, Soft, Other (Obese); Negative: Tenderness Extremity Exam: Negative: Edema, Tenderness, Swelling Skin Exam: Positive: Nl turgor and temperature; Negative: Breakdown Neuro Exam: Positive: Normal Speech, Strength at 5/5 X4 ext, Normal Tone Psych Exam: Positive: Memory Intact, Oriented x 3 Assessment /Plan Assessment 56 year old W with hypertension and DORINDA on CPAP, asthma and HTN who presented to [facility] ER due to 2 days of worsening of dyspnea that had started 2w prior with fevers, generalized weakness, cough and diagnosed with COVID 19 PNA with acute hypoxemic respiratory failure. Covid pneumonia with acute hypoxemic respiratory failure Continue IV Dexamethasone, IV Remdesivir, and Po Bariticumab and Lovenox twice daily No Aspirin as patient has allergic reaction to Aspirin Antibiotics stopped as procalcitonin is negative. Oxygenation has started to improve. Currently using CPAP with 6 liters. Elevated troponins on admission likely 2/2 a combination of demand ischemia given profound hypoxemia at presentation and duration of home illness vs. inflammation given elevated markers. No EKG changes or chest pain The above was discussed between attending and on-call sales order coordinator Dr. Al on 10/12/2021 afternoon, who advised the troponinemia is likely due to demand ischemia. Echo showed no wall motion abnormality, normal EF, small pericardial effusion and elevated pulmonary pressures DANIE Resolved Morbid obesity with a BMI of 47.9 and DORINDA Continue CPAP At home does not need any oxygen with CPAP Hypertension Continue losartan and hydrochlorothiazide Asthma Continue budesonide albuterol dexamethasone GERD Continue PPI Plan/VTE VTE Prophylaxis Ordered?: Yes VS, I&O, 24H, Fishbone Vital Signs/I&O Vital Signs Date Time Temp Pulse Resp B/P (MAP) Pulse Ox O2 Delivery O2 Flow Rate FiO2 10/18/21 08:28 114/70 10/18/21 08:00 15.0 10/18/21 05:34 97.0 60 19 95 NIPPV (BIPAP/CPAP) 10/13/21 18:08 50 I&O- Last 24 Hours up to 6 AM 10/18/21 06:00 Intake Total 960 ml Output Total 1450 ml Balance -490 ml Laboratory Data 24H LABS Laboratory Tests 2 10/18/21 07:48: Nucleated Red Blood Cells % (auto) 0.0, Prothrombin Time 15.8H, Prothromb Time International Ratio 1.21, Activated Partial Thromboplast Time 33.3, Fibrinogen 142L, Ferritin 962H, Total Bilirubin 0.7, Direct Bilirubin 0.2, Aspartate Amino Transf (AST/SGOT) 39H, Alanine Aminotransferase (ALT/SGPT) 106H, Alkaline Phosphatase 34L, Lactate Dehydrogenase 546H, Total Creatine Kinase 37, Troponin I High Sensitivity 17.0, XY-[id number]-R-Type Natriuretic Peptide 306H, Total Protein 6.4, Albumin 2.7L, Albumin/Globulin Ratio 0.7L, Procalcitonin <0.05 CBC/BMP Laboratory Tests 10/18/21 07:48 Microbiology Microbiology 10/12/21 Blood Culture - Final, Complete NO GROWTH AFTER 5 DAYS 10/12/21 Respiratory Virus Panel (PCR) ([facility]) - Final, Complete SARS-CoV-2 (COVID 19) 10/12/21 Blood Culture - Final, Complete NO GROWTH AFTER 5 DAYS Shira Phan MD Oct 18, 2021 11:21
[2021-10-18 14:00] VITALS: BP 111/60
[2021-10-18 22:00] VITALS: BP 98/60
[2021-10-19 05:18] VITALS: BP 149/70
[2021-10-19] MEDS: ENOXAPARIN 60MG/0.6ML SYRINGE (J1650 PER 10MG) SC SCH ×2 (06:45→17:46)
[2021-10-19] MEDS: BARICITINIB 2MG TABLET (OLUMIANT) FOR EUA PO SCH (08:55)
[2021-10-19] MEDS: CETIRIZINE (ZyrTEC) 10 MG TAB PO SCH (08:55)
[2021-10-19] MEDS: hydroCHLOROthiazide 12.5 MG CAPSULE PO SCH (08:55)
[2021-10-19] MEDS: LOSARTAN 50MG TABLET PO SCH (08:55)
[2021-10-19] MEDS: PANTOPRAZOLE 40MG TAB (PROTONIX) PO SCH ×2 (08:55→21:57)
[2021-10-19] MEDS: dexameTHASONE 4 MG/ML 1ML VIAL (J1100 PER 1MG) IV SCH ×2 (08:56→21:57)
[2021-10-19] MEDS: ZINC SULFATE 220 MG CAP PO SCH (08:56)
[2021-10-19] MEDS: BUDESONIDE 0.5 MG/2 ML INHALATION SUSPENSION INH SCH ×2 (09:11→20:05)
--- NOTE | 2021-10-19 13:30 | IPNPDOC ---
Subjective Date Seen The patient was seen on 10/19/21. Subjective Chief Complaint/HPI No complaints this morning. She is sitting up in the chair with the 10 L nasal cannula having her breakfast. Reports that she is starting to feel better. Objective Physical Examination General Exam: Positive: Alert, Cooperative, No Acute Distress, Other (On CPAP) Eye Exam: Positive: Conjunctiva & lids normal; Negative: Sclera icteric ENT Exam: Positive: Atraumatic, Mucous membr. moist/pink Neck Exam: Positive: Supple Chest Exam: Positive: Diminished (Diminished lung sounds throughout), Other (Fine diffuse crackles); Negative: Normal air movement, Rales, Wheezing Heart Exam: Positive: Rate Normal, Regular Rhythm; Negative: Murmurs Telemetry: Positive: Sinus Abdomen Exam: Positive: Normal bowel sounds, Soft, Other (Obese); Negative: Tenderness Extremity Exam: Negative: Edema, Tenderness, Swelling Skin Exam: Positive: Nl turgor and temperature; Negative: Breakdown Neuro Exam: Positive: Normal Speech, Strength at 5/5 X4 ext, Normal Tone Psych Exam: Positive: Memory Intact, Oriented x 3 Assessment /Plan Assessment 56 year old W with hypertension and DORINDA on CPAP, asthma and HTN who presented to [facility] ER due to 2 days of worsening of dyspnea that had started 2w prior with fevers, generalized weakness, cough and diagnosed with COVID 19 PNA with acute hypoxemic respiratory failure. Covid pneumonia with acute hypoxemic respiratory failure Continue IV Dexamethasone, IV Remdesivir, and Po Bariticumab and Lovenox twice daily No Aspirin as patient has allergic reaction to Aspirin Antibiotics stopped as procalcitonin is negative. Oxygenation is slowly improving. She is able to tolerate nasal cannula with 10 L of oxygen Using CPAP with 6 liters. Elevated troponins on admission likely 2/2 a combination of demand ischemia given profound hypoxemia at presentation and duration of home illness vs. inflammation given elevated markers. No EKG changes or chest pain The above was discussed between attending and on-call web machine tender Dr. Al on 10/12/2021 afternoon, who advised the troponinemia is likely due to demand ischemia. Echo showed no wall motion abnormality, normal EF, small pericardial effusion and elevated pulmonary pressures DANIE Resolved Morbid obesity with a BMI of 47.9 and DORINDA Continue CPAP At home does not need any oxygen with CPAP Hypertension Continue losartan and hydrochlorothiazide Asthma Continue budesonide albuterol dexamethasone GERD Continue PPI Plan/VTE VTE Prophylaxis Ordered?: Yes VS, I&O, 24H, Fishbone Vital Signs/I&O Vital Signs Date Time Temp Pulse Resp B/P (MAP) Pulse Ox O2 Delivery O2 Flow Rate FiO2 10/19/21 08:55 149/70 10/19/21 05:18 96.7 53 18 95 NIPPV (BIPAP/CPAP) 6.0 10/13/21 18:08 50 I&O- Last 24 Hours up to 6 AM 10/19/21 06:00 Intake Total 780 ml Output Total 1000 ml Balance -220 ml Laboratory Data Microbiology Microbiology 10/12/21 Blood Culture - Final, Complete NO GROWTH AFTER 5 DAYS 10/12/21 Respiratory Virus Panel (PCR) ([facility]) - Final, Complete SARS-CoV-2 (COVID 19) 10/12/21 Blood Culture - Final, Complete NO GROWTH AFTER 5 DAYS Shira Phan MD Oct 19, 2021 13:30
[2021-10-19 14:00] VITALS: BP 117/58
[2021-10-19 20:00] VITALS: BP 125/77
[2021-10-19 22:00] VITALS: BP 102/48
[2021-10-20 05:16] VITALS: BP 127/60
[2021-10-20] MEDS: BUDESONIDE 0.5 MG/2 ML INHALATION SUSPENSION INH SCH ×2 (06:21→20:00)
[2021-10-20] MEDS: ENOXAPARIN 60MG/0.6ML SYRINGE (J1650 PER 10MG) SC SCH ×2 (06:21→18:14)
[2021-10-20 08:08] LABS: BASO # 0.1 10^3/uL (0.0-0.2); BASO % 0.4 % (0.0-1.0); HEMATOCRIT 42.3 % (36.0-47.0); HEMOGLOBIN 14.1 g/dl (12.0-15.5); LYMPH # 0.9 10^3/uL (1.5-5.0); LYMPH % 7.1 % (24.0-44.0); MEAN CORPUSCULAR HEMOGLOBIN 30.1 pg (27.0-33.0); MEAN CORPUSCULAR HGB CONC 33.3 g/dl (32.0-36.5); MEAN CORPUSCULAR VOLUME 90.2 fl (80.0-96.0); MONO # 0.7 10^3/uL (0.0-0.8); MONO % 5.9 % (2.0-8.0); NEUTROPHILS # 10.2 10^3/uL (1.5-8.5); NEUTROPHILS % 81.9 % (36.0-66.0); PLATELET COUNT, AUTOMATED 285 10^3/uL (150-450); RED BLOOD COUNT 4.69 10^6/uL (4.00-5.40); WHITE BLOOD COUNT 12.4 10^3/uL (4.0-10.0)
[2021-10-20 08:40] LABS: BLOOD UREA NITROGEN 34 MG/DL (7-18); CALCIUM LEVEL 8.6 MG/DL (8.5-10.1); CARBON DIOXIDE LEVEL 27 MEQ/L (21-32); CHLORIDE LEVEL 106 MEQ/L (98-107); CREATININE FOR GFR 0.87 MG/DL (0.55-1.30); GLOMERULAR FILTRATION RATE > 60.0 (>51); GLUCOSE, FASTING 138 MG/DL (70-100); POTASSIUM SERUM 4.5 MEQ/L (3.5-5.1); SODIUM LEVEL 141 MEQ/L (136-145)
[2021-10-20] MEDS: hydroCHLOROthiazide 12.5 MG CAPSULE PO SCH (09:28)
[2021-10-20] MEDS: LOSARTAN 50MG TABLET PO SCH (09:28)
[2021-10-20] MEDS: CETIRIZINE (ZyrTEC) 10 MG TAB PO SCH (09:29)
[2021-10-20] MEDS: dexameTHASONE 4 MG/ML 1ML VIAL (J1100 PER 1MG) IV SCH ×2 (09:29→20:17)
[2021-10-20] MEDS: PANTOPRAZOLE 40MG TAB (PROTONIX) PO SCH ×2 (09:29→20:16)
[2021-10-20] MEDS: BARICITINIB 2MG TABLET (OLUMIANT) FOR EUA PO SCH (09:29)
[2021-10-20] MEDS: ZINC SULFATE 220 MG CAP PO SCH (09:29)
--- NOTE | 2021-10-20 13:29 | IPNPDOC ---
Subjective Date Seen The patient was seen on 10/20/21. Subjective Chief Complaint/HPI No acute overnight events. Her shortness of breath is improving. Her oxygenation is steadily improving. She is now down to 6 L. Anticipate she may be able to go home in the next 24 to 48 hours. Objective Physical Examination General Exam: Positive: Alert, Cooperative, No Acute Distress, Other (On CPAP) Eye Exam: Positive: Conjunctiva & lids normal; Negative: Sclera icteric ENT Exam: Positive: Atraumatic, Mucous membr. moist/pink Neck Exam: Positive: Supple Chest Exam: Positive: Diminished (Diminished lung sounds throughout), Other (Fine diffuse crackles); Negative: Normal air movement, Rales, Wheezing Heart Exam: Positive: Rate Normal, Regular Rhythm; Negative: Murmurs Telemetry: Positive: Sinus Abdomen Exam: Positive: Normal bowel sounds, Soft, Other (Obese); Negative: Tenderness Extremity Exam: Negative: Edema, Tenderness, Swelling Skin Exam: Positive: Nl turgor and temperature; Negative: Breakdown Neuro Exam: Positive: Normal Speech, Strength at 5/5 X4 ext, Normal Tone Psych Exam: Positive: Memory Intact, Oriented x 3 Assessment /Plan Assessment 56 year old W with hypertension and DORINDA on CPAP, asthma and HTN who presented to [facility] ER due to 2 days of worsening of dyspnea that had started 2w prior with fevers, generalized weakness, cough and diagnosed with COVID 19 PNA with acute hypoxemic respiratory failure. Covid pneumonia with acute hypoxemic respiratory failure Continue IV Dexamethasone, IV Remdesivir, and Po Bariticumab and Lovenox twice daily No Aspirin as patient has allergic reaction to Aspirin Antibiotics stopped as procalcitonin is negative. Oxygenation is slowly improving. She is now 1 high flow nasal cannula oxygen at 6 L and CPAP with 6 liters. Elevated troponins on admission likely 2/2 a combination of demand ischemia given profound hypoxemia at presentation and duration of home illness vs. inflammation given elevated markers. No EKG changes or chest pain The above was discussed between attending and on-call rn rehab Dr. Al on 10/12/2021 afternoon, who advised the troponinemia is likely due to demand i schemia. Echo showed no wall motion abnormality, normal EF, small pericardial effusion and elevated pulmonary pressures DANIE Resolved Morbid obesity with a BMI of 47.9 and DORINDA Continue CPAP At home does not need any oxygen with CPAP Hypertension Continue losartan and hydrochlorothiazide Asthma Continue budesonide albuterol dexamethasone GERD Continue PPI Plan/VTE VTE Prophylaxis Ordered?: Yes VS, I&O, 24H, Fishbone Vital Signs/I&O Vital Signs Date Time Temp Pulse Resp B/P (MAP) Pulse Ox O2 Delivery O2 Flow Rate FiO2 10/20/21 05:16 97.7 51 19 127/60 (82) 96 NIPPV (BIPAP/CPAP) 6.0 I&O- Last 24 Hours up to 6 AM 10/20/21 06:00 Intake Total 840 ml Output Total 600 ml Balance 240 ml Laboratory Data Microbiology Microbiology 10/12/21 Blood Culture - Final, Complete NO GROWTH AFTER 5 DAYS 10/12/21 Respiratory Virus Panel (PCR) ([facility]) - Final, Complete SARS-CoV-2 (COVID 19) 10/12/21 Blood Culture - Final, Complete NO GROWTH AFTER 5 DAYS Shira Phan MD Oct 20, 2021 08:04
[2021-10-20 14:00] VITALS: BP 125/54
[2021-10-20 20:15] VITALS: BP 94/58
[2021-10-20 23:35] VITALS: BP 108/58
[2021-10-21 04:00] VITALS: BP 147/71
[2021-10-21] MEDS: ENOXAPARIN 60MG/0.6ML SYRINGE (J1650 PER 10MG) SC SCH (05:42)
[2021-10-21 07:07] LABS: HEMATOCRIT 41.6 % (36.0-47.0); MEAN CORPUSCULAR HEMOGLOBIN 30.2 pg (27.0-33.0); MEAN CORPUSCULAR HGB CONC 33.7 g/dl (32.0-36.5); MEAN CORPUSCULAR VOLUME 89.8 fl (80.0-96.0); PLATELET COUNT, AUTOMATED 277 10^3/uL (150-450); RED BLOOD COUNT 4.63 10^6/uL (4.00-5.40); WHITE BLOOD COUNT 11.4 10^3/uL (4.0-10.0)
[2021-10-21 08:00] VITALS: O2SAT 92
[2021-10-21] MEDS: BUDESONIDE 0.5 MG/2 ML INHALATION SUSPENSION INH SCH (08:13)
[2021-10-21] MEDS: ZINC SULFATE 220 MG CAP PO SCH (08:32)
[2021-10-21] MEDS: CETIRIZINE (ZyrTEC) 10 MG TAB PO SCH (08:32)
[2021-10-21] MEDS: dexameTHASONE 4 MG/ML 1ML VIAL (J1100 PER 1MG) IV SCH (08:32)
[2021-10-21] MEDS: PANTOPRAZOLE 40MG TAB (PROTONIX) PO SCH (08:32)
[2021-10-21] MEDS: BARICITINIB 2MG TABLET (OLUMIANT) FOR EUA PO SCH (08:33)
[2021-10-21 09:00] VITALS: BP 98/62
[2021-10-21] MEDS: LOSARTAN 50MG TABLET PO SCH (09:00)
[2021-10-21] MEDS: hydroCHLOROthiazide 12.5 MG CAPSULE PO SCH (09:00)
[2021-10-21] MEDS ORDERED: LOSA50TA88 PO (12:29)
[2021-10-21] MEDS ORDERED: PRED10TA2 PO (12:29)
--- NOTE | 2021-10-21 13:15 | DS.PDOC ---
Discharge Summary General Date of Admission Oct 12, 2021 at 13:56 Date of Discharge 10/21/21 Discharge Summary PROCEDURES PERFORMED DURING STAY: [None]. DISCHARGE DIAGNOSES: Covid pneumonia with acute hypoxic respiratory failure DANIE Elevated troponins on admission Secondary diagnoses: Hypertension and DORINDA on CPAP, asthma, GERD COMPLICATIONS/CHIEF COMPLAINT: Acute Hypoxemic Respiratory Failure Due To C ovid19. HOSPITAL COURSE: 56 year old W with hypertension and DORINDA on CPAP, asthma and HTN who presented to [facility] ER due to 2 days of worsening of dyspnea that had started 2w prior with fevers, generalized weakness, cough and diagnosed with COVID 19 PNA with acute hypoxemic respiratory failure. Covid pneumonia with acute hypoxemic respiratory failure now requiring oxygen only during ambulation No requiring oxygen with CPAP. will discharge home with home oxygen Will also be on tapering course of prednisone May use CPAP as usual at night and during naps without oxygen Elevated troponins on admission likely 2/2 a combination of demand ischemia given profound hypoxemia at presentation and duration of home illness vs. inflammation given elevated markers. No EKG changes or chest pain The above was discussed between attending and on-call professor of german Dr. Al on 10/12/2021 afternoon, who advised the troponinemia is likely due to demand ischemia. Echo showed no wall motion abnormality, normal EF, small pericardial effusion and elevated pulmonary pressures DANIE Resolved Morbid obesity with a BMI of 47.9 and DORINDA Continue CPAP as usual Hypertension Stopped her losartan/hydrochlorothiazide We will continue only with losartan at lower dose because of lower blood pressures in hospital. Asthma Continue budesonide,albuterol GERD Continue PPI DISCHARGE MEDICATIONS: Please see below. ALLERGIES: Please see below. PHYSICAL EXAMINATION ON DISCHARGE: VITAL SIGNS: Please see below. General Exam: Positive: Alert, Cooperative, No Acute Distress, Other (On CPAP) Eye Exam: Positive: Conjunctiva & lids normal; Negative: Sclera icteric ENT Exam: Positive: Atraumatic, Mucous membr. moist/pink Neck Exam: Positive: Supple Chest Exam: Positive: Diminished (Diminished lung sounds throughout), Other (Fine diffuse crackles); Negative: Normal air movement, Rales, Wheezing Heart Exam: Positive: Rate Normal, Regular Rhythm; Negative: Murmurs Telemetry: Positive: Sinus Abdomen Exam: Positive: Normal bowel sounds, Soft, Other (Obese); Negative: Tenderness Extremity Exam: Negative: Edema, Tenderness, Swelling Skin Exam: Positive: Nl turgor and temperature; Negative: Breakdown Neuro Exam: Positive: Normal Speech, Strength at 5/5 X4 ext, Normal Tone Psych Exam: Positive: Memory Intact, Oriented x 3 LABORATORY DATA: Please see below. ACTIVITY: [As tolerated]. DIET: As tolerated DISCHARGE PLAN: Home with services DISCHARGE INSTRUCTIONS: Follow-up with PMD in 2-week DISCHARGE CONDITION: [Stable]. TIME SPENT ON DISCHARGE: 35 minutes. Vital Signs/I&Os Vital Signs Date Time Temp Pulse Resp B/P (MAP) Pulse Ox O2 Delivery O2 Flow Rate FiO2 10/21/21 09:00 98/62 10/21/21 08:00 2.0 10/21/21 08:00 92 Room Air 10/21/21 04:00 97.6 57 19 I&O- Last 24 Hours up to 6 AM 10/21/21 06:00 Intake Total 960 ml Output Total 300 ml Balance 660 ml Laboratory Data Labs 24H Laboratory Tests 2 10/21/21 06:04: Nucleated Red Blood Cells % (auto) 0.0 CBC/BMP Laboratory Tests 10/21/21 06:04 Microbiology Microbiology 10/12/21 Blood Culture - Final, Complete NO GROWTH AFTER 5 DAYS 10/12/21 Respiratory Virus Panel (PCR) ([facility]) - Final, Complete SARS-CoV-2 (COVID 19) 10/12/21 Blood Culture - Final, Complete NO GROWTH AFTER 5 DAYS Discharge Medications Scheduled Beclomethasone Dipropionate (Qvar Redihaler) 80 Mcg/Act Hfa.aeroba, 1 PUFF INH BID, (Reported) Cetirizine HCl (Cetirizine HCl) 10 Mg Tablet, 10 MG PO DAILY, (Reported) Losartan Potassium (Losartan Potassium) 50 Mg Tablet, 1 TAB PO DAILY Pantoprazole Sodium (Pantoprazole Sodium) 40 Mg Tablet.dr, 40 MG PO BID, (Repo rted) Prednisone (Prednisone) 10 Mg Tablet, 10 MG PO TAPER Take 4 tabs daily x 3 days, then 3 tabs daily x 3 days, then 2 tabs daily x 3 days, then 1 tab daily x 3 days and stop Zinc Sulfate (Zinc Sulfate) 220 Mg Capsule, 220 MG PO DAILY, (Reported) Scheduled PRN Albuterol Sulf (Albuterol Sulfate) 2.5 Mg/3 Ml Vial.neb, 1 VIAL INH QID PRN for SOB/WHEEZING, (Reported) Hydrocodone/Acetaminophen (Hydrocodone-Acetamin 5-325 mg) 1 Each Tablet, 1 TAB PO Q8H PRN for PAIN LEVEL 5-7, (Reported) Allergies Coded Allergies: aspirin (Verified Allergy, Intermediate, RASH, 12/16/19) fluticasone (Verified Allergy, Unknown, 12/16/19) venlafaxine (Verified Allergy, Unknown, 12/16/19) latex (Verified Adverse Reaction, Intermediate, BLEEDS AT NAILBEDS, 12/16/19) paroxetine (Verified Adverse Reaction, Intermediate, DREAMS OF SELF HARM, 12/16/19) erythromycin base (Verified Adverse Reaction, Mild, VOMITING, 12/16/19) naproxen (Verified Adverse Reaction, Mild, STOMACH UPSET, 12/16/19) Shira Phan MD Oct 21, 2021 13:15
== END 2021-10-21 17:18 | disposition home health service (06) | DRG 177 ==
LOC: EDBD 12:33 → M ED 12:33 → M ED INP 13:56 → M ICU 16:07 → M 4MAIN 10-13 16:47
PROVIDERS: ADMIT Internal Medicine; ATTEND Internal Medicine Nephrology
DX: U07.1 COVID-19 (principal); J12.82 Pneumonia due to coronavirus disease 2019; J96.01 Acute respiratory failure with hypoxia; N17.9 Acute kidney failure, unspecified; Z68.42 Body mass index [BMI] 45.0-49.9, adult; I10 Essential (primary) hypertension; J45.909 Unspecified asthma, uncomplicated; E66.01 Morbid (severe) obesity due to excess calories; K21.9 Gastro-esophageal reflux disease without esophagitis; Z79.899 Other long term (current) drug therapy; Z88.6 Allergy status to analgesic agent; Z91.040 Latex allergy status; Z88.8 Allergy status to other drugs, medicaments and biological substances; Z88.1 Allergy status to other antibiotic agents; Z96.653 Presence of artificial knee joint, bilateral; G43.909 Migraine, unspecified, not intractable, without status migrainosus; F32.9 Major depressive disorder, single episode, unspecified; F41.9 Anxiety disorder, unspecified; M19.90 Unspecified osteoarthritis, unspecified site; Z87.891 Personal history of nicotine dependence

== ENCOUNTER → 2021-11-18 | Outpatient (REF) | payer OTHER ==
[~2021-11-18] MED LIST changes: +ALBU83IN INH; +CETI10TA4 PO; +HYDR-4571 PO; +LOSA100T8 PO; +LOSA50TA88 PO; +PANT40TA29 PO; +PRED10TA2 PO; +QVAR80AE8 INH; +ZINC220CA PO; -dexameTHASONE 4 MG/ML 1ML VIAL (J1100 PER 1MG) IV SCH
== END ==
LOC: M LAB REF 16:24
PROVIDERS: ATTEND Family Medicine
DX: R94.5 Abnormal results of liver function studies (principal)

== ENCOUNTER → 2022-03-24 | Outpatient (CLI) | payer OTHER ==
[~2022-03-24] MED LIST changes: +LOSA50TA28 PO; -LOSA50TA88 PO
== END ==
LOC: M WUC 09:55
PROVIDERS: ATTEND Family Medicine
DX: M19.011 Primary osteoarthritis, right shoulder (principal); M25.511 Pain in right shoulder

== ENCOUNTER → 2022-09-23 | Outpatient (CLI) | payer OTHER ==
[~2022-09-23] MED LIST changes: +ALBU2.5V10 INH; -ALBU83IN INH; -GLUCTAB6 PO; +GLUCTAB7 PO
== END ==
LOC: M WHC 08:59
PROVIDERS: ATTEND Family Medicine
DX: Z12.31 Encounter for screening mammogram for malignant neoplasm of breast (principal)

== ENCOUNTER → 2022-10-30 | Outpatient (CLI) | payer OTHER | LOC: M RAD 06:56 | PROVIDERS: ATTEND Nurse Practitioner Adult Health | DX: R91.8 Other nonspecific abnormal finding of lung field (principal); Z86.16 Personal history of COVID-19 ==

== ENCOUNTER 2023-01-26 21:30 | Emergency (ER) | payer OTHER ==
[~2023-01-26] VITALS: Ht 157.5 cm; Wt 118.2 kg
[2023-01-26] MEDS ORDERED: CYCL-707 PO (21:41)
[2023-01-27] MEDS ORDERED: MORPHINE 4 MG/ML 1ML VIAL IV PRN (00:40)
[2023-01-27] MEDS ORDERED: ONDANSETRON 4MG 2ML VIAL IV ONE (00:40)
[2023-01-27 01:12] LABS: BASO # 0.1 10^3/uL (0.0-0.2); BASO % 0.6 % (0.0-1.0); EOS # 0.2 10^3/uL (0.0-0.5); EOS % 1.4 % (0.0-3.0); HEMATOCRIT 46.2 % (36.0-47.0); HEMOGLOBIN 15.7 g/dl (12.0-15.5); LYMPH # 3.9 10^3/uL (1.5-5.0); LYMPH % 37.7 % (24.0-44.0); MEAN CORPUSCULAR HEMOGLOBIN 30.5 pg (27.0-33.0); MEAN CORPUSCULAR VOLUME 89.7 fl (80.0-96.0); MONO # 0.9 10^3/uL (0.0-0.8); MONO % 8.4 % (2.0-8.0); NEUTROPHILS # 5.4 10^3/uL (1.5-8.5); NEUTROPHILS % 51.5 % (36.0-66.0); PLATELET COUNT, AUTOMATED 248 10^3/uL (150-450); RED BLOOD COUNT 5.15 10^6/uL (4.00-5.40); WHITE BLOOD COUNT 10.4 10^3/uL (4.0-10.0)
[2023-01-27 01:37] LABS: BLOOD UREA NITROGEN 16 MG/DL (9-23); CALCIUM LEVEL 10.1 MG/DL (8.3-10.6); CARBON DIOXIDE LEVEL 26 MMOL/L (20-31); CHLORIDE LEVEL 103 MMOL/L (98-107); CREATININE FOR GFR 0.75 MG/DL (0.55-1.30); GLOMERULAR FILTRATION RATE > 60.0 (>45); GLUCOSE, FASTING 97 MG/DL (74-106); POTASSIUM SERUM 4.2 MMOL/L (3.5-5.1); SODIUM LEVEL 138 MMOL/L (136-145)
[2023-01-27 04:15] LABS: LIPASE 45 U/L (12-53)
[2023-01-27 04:51] VITALS: BP 164/81
[2023-01-27 04:58] LABS: ALBUMIN 4.4 G/DL (3.2-5.2); ALKALINE PHOSPHATASE 44 U/L (46-116); ALT/SGPT 30 U/L (7.0-40); AST/SGOT 33 U/L (<34); BILIRUBIN,DIRECT < 0.1 MG/DL (<0.4); BILIRUBIN,TOTAL 0.4 MG/DL (0.3-1.2); TOTAL PROTEIN 7.8 G/DL (5.7-8.2)
[2023-01-27] MEDS ORDERED: METH-1165 PO (05:33)
[2023-01-27] MEDS ORDERED: PRED20TA PO (05:33)
[2023-01-27] MEDS ORDERED: methylPREDNISolone 40MG 1ML VIAL IV ONE (05:35)
[2023-01-27] MEDS ORDERED: methocarbamoL 750 MG TAB PO ONE (05:35)
== END 2023-01-27 06:08 | disposition home or self-care (01) ==
LOC: M ED 21:30
DX: R10.9 Unspecified abdominal pain (principal); I10 Essential (primary) hypertension; Z88.1 Allergy status to other antibiotic agents; Z88.6 Allergy status to analgesic agent; Z88.8 Allergy status to other drugs, medicaments and biological substances; Z91.040 Latex allergy status; Z79.52 Long term (current) use of systemic steroids; Z79.811 Long term (current) use of aromatase inhibitors; Z79.899 Other long term (current) drug therapy
CPT/HCPCS: 74176; 76705; 80048; 80076; 81001; 83690; 85025; 96374; 96375; 99284; J2270; J2405; J2920

== ENCOUNTER → 2023-03-11 | Outpatient (CLI) | payer OTHER ==
[~2023-03-11] MED LIST changes: +CYCL-707 PO; +METH-1165 PO; +PRED20TA PO
== END ==
LOC: M PLAIMG 07:56
PROVIDERS: ATTEND Family Medicine
DX: M54.50 Low back pain, unspecified (principal)

== ENCOUNTER 2023-04-25 14:43 | Day surgery (SDC) | payer OTHER ==
[~2023-04-25] VITALS: Ht 157.5 cm; Wt 120.5 kg
[2023-04-25] MEDS ORDERED: LOSA100T8 PO (14:57)
[2023-04-25] MEDS ORDERED: ISOVUE-370 76% 100ML VIAL As Ordered ONE (16:28)
[2023-04-25 16:45] LABS: BASO # 0.1 10^3/uL (0.0-0.2); BASO % 0.4 % (0.0-1.0); EOS # 0.1 10^3/uL (0.0-0.5); EOS % 0.5 % (0.0-3.0); HEMATOCRIT 44.4 % (36.0-47.0); HEMOGLOBIN 15.1 g/dl (12.0-15.5); LYMPH % 18.1 % (24.0-44.0); MEAN CORPUSCULAR HEMOGLOBIN 30.8 pg (27.0-33.0); MEAN CORPUSCULAR VOLUME 90.6 fl (80.0-96.0); MONO # 0.7 10^3/uL (0.0-0.8); NEUTROPHILS # 8.3 10^3/uL (1.5-8.5); NEUTROPHILS % 74.6 % (36.0-66.0); PLATELET COUNT, AUTOMATED 244 10^3/uL (150-450); WHITE BLOOD COUNT 11.1 10^3/uL (4.0-10.0)
[2023-04-25 16:56] LABS: ALBUMIN 4.2 G/DL (3.2-5.2); BILIRUBIN,DIRECT 0.1 MG/DL (<0.4); BILIRUBIN,TOTAL 0.5 MG/DL (0.3-1.2); TOTAL PROTEIN 7.1 G/DL (5.7-8.2)
[2023-04-25] MEDS ORDERED: NS 1,000 ML IV ONE (17:25)
[2023-04-25] MEDS ORDERED: LR 1,000 ML IV SCH ×2 (17:25→19:40)
[2023-04-25] MEDS ORDERED: PIPERACILLIN/TAZOBACTAM SOD 3.375 GM in D5W MINI-BAG PLUS 50 ML IV ONE (17:25)
[2023-04-25] MEDS ORDERED: ONDANSETRON 4MG 2ML VIAL IV ONE (17:25)
[2023-04-25] MEDS ORDERED: LIDOCAINE 1% SDV 30ML VIAL As Ordered ONE (18:07)
[2023-04-25 18:13] LABS: RSV AMPLIFICATION NEGATIVE (NEGATIVE)
[2023-04-25] MEDS ORDERED: CYCL-707 PO (18:31)
[2023-04-25] MEDS ORDERED: HYDR-3713 PO (18:31)
[2023-04-25] MEDS ORDERED: HOME MED LIST COMPLETE! XX SCH (18:35)
[2023-04-25] MEDS ORDERED: SUGAMMADEX SODIUM 500 MG/5 ML VIAL (BRIDION) As Ordered ONE (19:24)
[2023-04-25] MEDS ORDERED: fentaNYL 100 MCG/2 ML INJECTION As Ordered ONE ×2 (19:24→20:03)
[2023-04-25] MEDS ORDERED: propofoL 200 MG/20 ML VIAL As Ordered ONE (19:24)
[2023-04-25] MEDS ORDERED: ACETAMINOPHEN 1000MG 100ML IV BAG As Ordered ONE (19:24)
[2023-04-25] MEDS ORDERED: ONDANSETRON 4MG 2ML VIAL As Ordered ONE (19:24)
[2023-04-25] MEDS ORDERED: MIDAZOLAM INJ 2MG/2ML VIAL As Ordered ONE (19:24)
[2023-04-25] MEDS ORDERED: ROCURONIUM BROMIDE 50MG/5ML VIAL As Ordered ONE (19:24)
[2023-04-25] MEDS ORDERED: LIDOCAINE 2% 100MG/5ML SDV (FOR ANES.) As Ordered ONE (19:24)
[2023-04-25] MEDS ORDERED: dexmedeTOMIDine (4MCG/ML)200MCG/50ML BTL (PRECEDEX) As Ordered ONE (19:33)
[2023-04-25] MEDS ORDERED: fentaNYL 100 MCG/2 ML INJECTION IV PRN (19:40)
[2023-04-25] MEDS ORDERED: METOCLOPRAMIDE INJ 10MG/2ML VIAL IV PRN (19:40)
[2023-04-25] MEDS ORDERED: oxyCODONE 5MG TAB PO PRN (19:40)
[2023-04-25] MEDS ORDERED: ONDANSETRON 4MG 2ML VIAL IV PRN (19:40)
[2023-04-25] MEDS ORDERED: PERCOCET 5MG/325MG TAB PO PRN ×2 (20:05)
[2023-04-25] MEDS ORDERED: NORCO, ANEXSIA 5/325MG TABLET (HYDROcodone/ACETAMINOPHEN) PO PRN (20:05)
[2023-04-25] MEDS ORDERED: ALBUTEROL SULFATE 2.5MG/0.5ML INH NEB SOLN INH PRN (20:05)
[2023-04-25] MEDS ORDERED: CYCLOBENZAPRINE 10MG TABLET PO PRN (20:05)
[2023-04-25] MEDS: HYDROMORPHONE HCL 0.5 MG/ 0.5 ML SYRINGE IV PRN ×2 (20:17→20:24)
[2023-04-25 21:10] VITALS: BP 156/90; TEMP 97.3; O2SAT 99
[2023-04-25 21:30] VITALS: BP 154/89; TEMP 97.3; O2SAT 98
[2023-04-25 22:00] VITALS: BP 154/87; TEMP 97.3; O2SAT 97
[2023-04-25 23:00] VITALS: BP 124/60; TEMP 97.5; O2SAT 97
[2023-04-26] VITALS: BP 126/65; TEMP 97.5; O2SAT 97
[2023-04-26] MEDS: PIPERACILLIN/TAZOBACTAM SOD 3.375 GM in D5W MINI-BAG PLUS 50 ML IV SCH ×3 (00:30→12:00)
[2023-04-26 01:00] VITALS: BP 128/61; TEMP 97.5; O2SAT 94
[2023-04-26 06:00] VITALS: BP 133/65; TEMP 98.1; O2SAT 95
[2023-04-26 06:17] LABS: BASO % 0.1 % (0.0-1.0); HEMATOCRIT 44.4 % (36.0-47.0); HEMOGLOBIN 14.5 g/dl (12.0-15.5); LYMPH # 1.1 10^3/uL (1.5-5.0); LYMPH % 12.5 % (24.0-44.0); MEAN CORPUSCULAR HEMOGLOBIN 29.9 pg (27.0-33.0); MEAN CORPUSCULAR HGB CONC 32.7 g/dl (32.0-36.5); MEAN CORPUSCULAR VOLUME 91.5 fl (80.0-96.0); MONO # 0.1 10^3/uL (0.0-0.8); MONO % 1.2 % (2.0-8.0); NEUTROPHILS # 7.7 10^3/uL (1.5-8.5); NEUTROPHILS % 85.8 % (36.0-66.0); PLATELET COUNT, AUTOMATED 231 10^3/uL (150-450); RED BLOOD COUNT 4.85 10^6/uL (4.00-5.40)
[2023-04-26 06:44] LABS: BLOOD UREA NITROGEN 16 MG/DL (9-23); CARBON DIOXIDE LEVEL 24 MMOL/L (20-31); CHLORIDE LEVEL 104 MMOL/L (98-107); CREATININE FOR GFR 0.74 MG/DL (0.55-1.30); GLOMERULAR FILTRATION RATE > 60.0 (>45); GLUCOSE, FASTING 140 MG/DL (74-106); POTASSIUM SERUM 4.4 MMOL/L (3.5-5.1); SODIUM LEVEL 138 MMOL/L (136-145)
[2023-04-26] MEDS ORDERED: CETIRIZINE (ZyrTEC) 10 MG TAB PO SCH (09:00)
[2023-04-26] MEDS ORDERED: ZINC SULFATE 220 MG CAP PO SCH (09:00)
[2023-04-26] MEDS ORDERED: HYDR-3713 PO (09:42)
[2023-04-26] MEDS ORDERED: LOSARTAN 50MG TABLET PO SCH (18:00)
[2023-04-26] MEDS ORDERED: hydroCHLOROthiazide 12.5 MG CAPSULE PO SCH (18:00)
== END 2023-04-26 13:15 | disposition home or self-care (01) ==
LOC: M ED 14:43 → M SDC 17:53 → M MS5PR 20:30 → UNDOADMOB 20:30 → UNDODISOB 04-26 13:15 → M SDC 04-26 13:15
PROVIDERS: ATTEND Surgery
DX: K35.890 Other acute appendicitis without perforation or gangrene (principal); K42.0 Umbilical hernia with obstruction, without gangrene; J44.9 Chronic obstructive pulmonary disease, unspecified; G47.33 Obstructive sleep apnea (adult) (pediatric); E66.01 Morbid (severe) obesity due to excess calories; Z79.899 Other long term (current) drug therapy; K21.9 Gastro-esophageal reflux disease without esophagitis; I10 Essential (primary) hypertension; Z88.8 Allergy status to other drugs, medicaments and biological substances; Z91.040 Latex allergy status
CPT/HCPCS: 36415; 44970; 49614; 74177; 80047; 80048; 80076; 83690; 85025; 87631; 88302; 94640; 96365; 96375; 99284; J0131; J1100; J1170; J2250; J2405; J2543; J3010; Q9967; S0020

== ENCOUNTER → 2023-10-13 | Outpatient (CLI) | payer OTHER | LOC: M WUC 08:58 | PROVIDERS: ATTEND Family Medicine | DX: M79.671 Pain in right foot (principal); M77.31 Calcaneal spur, right foot ==

== ENCOUNTER 2024-01-07 07:26 | Day surgery (SDC) | payer OTHER ==
[~2024-01-07] VITALS: Ht 157.5 cm; Wt 114.3 kg
[~2024-01-07 07:26] MED LIST changes: +ALBU6.7H6 INH; +K2 P1TAB PO; +MAGN400C PO; +VITA-243 PO; +ZINC30CA PO; +[UNRECOGNIZED DRUG - OTHER]
[2024-01-07] MEDS: NS 1,000 ML IV ONE (07:45)
[2024-01-07] MEDS ORDERED: propofoL 200 MG/20 ML VIAL As Ordered ONE (08:39)
[2024-01-07] MEDS ORDERED: LIDOCAINE 2% 100MG/5ML SDV (FOR ANES.) As Ordered ONE (08:39)
[2024-01-07 08:48] VITALS: TEMP 98
[2024-01-07 09:07] VITALS: BP 129/71; O2SAT 95
== END 2024-01-07 09:14 | disposition home or self-care (01) ==
LOC: M OPP 07:26
PROVIDERS: ATTEND Surgery
DX: Z12.11 Encounter for screening for malignant neoplasm of colon (principal); Z80.0 Family history of malignant neoplasm of digestive organs; Z87.891 Personal history of nicotine dependence; G47.30 Sleep apnea, unspecified; Z99.89 Dependence on other enabling machines and devices; Z79.51 Long term (current) use of inhaled steroids; Z79.891 Long term (current) use of opiate analgesic; Z79.899 Other long term (current) drug therapy; Z88.1 Allergy status to other antibiotic agents; Z88.6 Allergy status to analgesic agent; Z88.8 Allergy status to other drugs, medicaments and biological substances; Z91.040 Latex allergy status

== ENCOUNTER → 2024-03-29 | Outpatient (CLI) | payer OTHER | LOC: M RAD 13:45 | PROVIDERS: ATTEND Physician Assistant Surgical | DX: S80.01XA Contusion of right knee, initial encounter (principal); X58.XXXA Exposure to other specified factors, initial encounter; Y92.9 Unspecified place or not applicable; Z96.651 Presence of right artificial knee joint ==

== ENCOUNTER → 2024-10-11 | Outpatient (CLI) | payer OTHER ==
[~2024-10-11] MED LIST changes: +GABA-1172 PO; -GABA-282 PO
== END ==
LOC: M WHC 09:16
PROVIDERS: ATTEND Family Medicine
DX: Z12.31 Encounter for screening mammogram for malignant neoplasm of breast (principal); R92.313 Mammographic fatty tissue density, bilateral breasts

== ENCOUNTER → 2024-10-17 | Outpatient (CLI) | payer OTHER | LOC: M WUC 12:53 | PROVIDERS: ATTEND Family Medicine | DX: M79.645 Pain in left finger(s) (principal) ==

== ENCOUNTER → 2025-10-17 | Outpatient (CLI) | payer OTHER | LOC: M WHC 08:20 | PROVIDERS: ATTEND Family Medicine | DX: Z12.31 Encounter for screening mammogram for malignant neoplasm of breast (principal); R92.313 Mammographic fatty tissue density, bilateral breasts ==